=== PATIENT | male | born 1990 | race Caucasian/White ===

== ENCOUNTER 2016-05-06 21:54 | Emergency (ER) | payer SELFPAY ==
[2016-05-06 23:00] VITALS: BP 139/82
[2016-05-07] MEDS ORDERED: SUCRALFATE 1 GM TABLET PO ONE (00:13)
[2016-05-07] MEDS ORDERED: ONDANSETRON 4 MG TAB.RAPDIS PO ONE (00:13)
[2016-05-07] MEDS ORDERED: FAMOTIDINE 20 MG TABLET PO ONE (00:13)
--- NOTE | 2016-05-07 00:26 | ER Document Report ---
ED Medical Screen (RME) - General Stated Complaint: STOMACH PAIN Time seen by provider: 00:10 Notes: 26 year old male that comes to the ED for chief complaint of upper abdominal pain, worse since he had "the flu" a few days ago, post op from ruptured abdominal ulcer and drains from abscess formation afterwards. States pain has been present a few days, not particularly worse today, taking nexium. Normal BM yesterday, no fever, no N/V. States he couldn't make the drive to [place] to be seen so he came here TRAVEL OUTSIDE OF THE [place] IN LAST 30 DAYS: No - Related Data Allergies/Adverse Reactions: iodine [Iodine] Allergy (Severe, Verified 05/07/16 00:08) oxycodone HCl [From Percocet] Allergy (Severe, Verified 05/07/16 00:08) fish derived [Fish derived] Allergy (Verified 05/07/16 00:08) Shellfish * [Shellfish] Allergy (Verified 05/07/16 00:08) ibuprofen [Ibuprofen] Adverse Reaction (Severe, Verified 05/07/16 00:08) bleeding Past Medical History - Social History Chew tobacco use (# tins/day): No Frequency of alcohol use: None Drug Abuse: None Family history: Hypertension, Malignancy - Past Medical History Cardiac Medical History: Reports: Hx Hypercholesterolemia, Hx Hypertension - Resolved after bariatric surgery Pulmonary Medical History: Reports: Hx Asthma, Hx COPD, Hx Pneumonia, Hx Sleep Apnea Renal/ Medical History: Denies: Hx Peritoneal Dialysis GI Medical History: Reports: Hx Gastroesophageal Reflux Disease, Hx Irritable Bowel Musculoskeltal Medical History: Reports Hx Musculoskeletal Trauma Skin Medical History: Reports Hx Cellulitis Psychiatric Medical History: Reports: Hx Anxiety, Hx Attention Deficit Hyperactivity Disorder, Hx Depression Traumatic Medical History: Reports: Hx Fractures - 5th finger Past Surgical History: Reports: Hx Abdominal Surgery - gastric bypass, Hx Bowel Surgery - hernia repair., Hx Gastric Bypass Surgery, Hx Herniorrhaphy - Immunizations Immunizations up to date: Yes Hx Diphtheria, Pertussis, Tetanus Vaccination: Yes Physical Exam - Vital signs Vitals: Temp Pulse Resp BP Pulse Ox 98.2 F 71 16 139/82 H 100 05/06/16 22:59 05/06/16 22:59 05/06/16 22:59 05/06/16 22:59 01/12/17 22:59 - Abdominal Tenderness: Tender - epigastric tender, not guarding Course - Vital Signs Vital signs: Temp Pulse Resp BP Pulse Ox 98.2 F 71 16 139/82 H 100 05/06/16 22:59 05/06/16 22:59 05/06/16 22:59 05/06/16 22:59 05/06/16 22:59
== END 2016-05-07 02:15 | disposition left against medical advice (07) ==
LOC: ER 21:54
DX: Z53.9 Procedure and treatment not carried out, unspecified reason (principal); R10.9 Unspecified abdominal pain; R10.10 Upper abdominal pain, unspecified
CPT/HCPCS: 99281; S0119

== ENCOUNTER 2016-07-14 13:52 | Emergency (ER) | payer SELFPAY ==
--- NOTE | 2016-07-14 14:12 | ER Document Report ---
ED Medical Screen (RME) - General Stated Complaint: NECK PAIN Notes: 26 yo male c/o c/o left neck pain after lifting weights yesterday, doing shoulder shrugs. also c/o burning abdominal pain x 2 weeks. hx/o perforated ulcer in February. No nausea, no vomiting. No fever TRAVEL OUTSIDE OF THE [place] IN LAST 30 DAYS: No - Related Data Allergies/Adverse Reactions: iodine [Iodine] Allergy (Severe, Verified 05/07/16 01:36) oxycodone HCl [From Percocet] Allergy (Severe, Verified 05/07/16 01:36) fish derived [Fish derived] Allergy (Verified 05/07/16 01:36) Shellfish * [Shellfish] Allergy (Verified 05/07/16 01:36) ibuprofen [Ibuprofen] Adverse Reaction (Severe, Verified 05/07/16 01:36) bleeding Past Medical History - Social History Family history: Hypertension, Malignancy - Past Medical History Cardiac Medical History: Reports: Hx Hypercholesterolemia, Hx Hypertension - Resolved after bariatric surgery Pulmonary Medical History: Reports: Hx Asthma, Hx COPD, Hx Pneumonia, Hx Sleep Apnea Renal/ Medical History: Denies: Hx Peritoneal Dialysis GI Medical History: Reports: Hx Gastroesophageal Reflux Disease, Hx Irritable Bowel Musculoskeltal Medical History: Reports Hx Musculoskeletal Trauma Skin Medical History: Reports Hx Cellulitis Psychiatric Medical History: Reports: Hx Anxiety, Hx Attention Deficit Hyperactivity Disorder, Hx Depression Traumatic Medical History: Reports: Hx Fractures - 5th finger Past Surgical History: Reports: Hx Abdominal Surgery - gastric bypass, Hx Bowel Surgery - hernia repair., Hx Gastric Bypass Surgery, Hx Herniorrhaphy - Immunizations Immunizations up to date: Yes Hx Diphtheria, Pertussis, Tetanus Vaccination: Yes Physical Exam - Vital signs Vitals: Temp Pulse Resp BP Pulse Ox 98.3 F 83 16 117/73 99 07/14/16 13:55 07/14/16 13:55 07/14/16 13:55 07/14/16 13:55 07/14/16 13:55 Course - Vital Signs Vital signs: Temp Pulse Resp BP Pulse Ox 98.3 F 83 16 117/73 99 07/14/16 13:55 07/14/16 13:55 07/14/16 13:55 07/14/16 13:55 07/14/16 13:55
[2016-07-14 14:32] LABS: ABSOLUTE EOSINOPHILS # (AUTO) 0.3 10^3/uL (0.0-0.6); ABSOLUTE LYMPHOCYTES (AUTO) 2.2 10^3/uL (0.5-4.7); ABSOLUTE MONOCYTES (AUTO) 0.6 10^3/uL (0.1-1.4); ABSOLUTE NEUT (AUTO) 4.2 10^3/uL (1.7-8.2); BASOPHILS % (AUTO) 0.5 % (0-2); EOSINOPHILS % (AUTO) 3.9 % (0-6); HEMOGLOBIN 15.1 g/dL (13.5-17.0); HGB HCT DIFFERENCE 0.3; MEAN CORPUSCULAR HEMOGLOBIN 30.3 pg (27.0-33.4); MEAN CORPUSCULAR HGB CONC 33.6 g/dL (32.0-36.0); MEAN CORPUSCULAR VOLUME 90 fl (80-97); MONOCYTES % (AUTO) 8.3 % (3-13); RED BLOOD COUNT 4.99 10^6/uL (4.35-5.55); RED CELL DISTRIBUTION WIDTH 14.8 % (11.5-14.0); SEGMENTED NEUTROPHILS % (AUTO) 57.3 % (42-78); WHITE BLOOD COUNT 7.4 10^3/uL (4.0-10.5)
[2016-07-14 14:54] LABS: ALANINE AMINOTRANSFERASE 35 U/L (21-72); ALBUMIN 4.5 g/dL (3.5-5.0); ALKALINE PHOSPHATASE 54 U/L (38-126); ANION GAP 13 (5-19); ASPARTATE AMINO TRANSFERASE 32 U/L (17-59); BILIRUBIN,DIRECT 0.2 mg/dL (0.0-0.4); BILIRUBIN,TOTAL 0.7 mg/dL (0.2-1.3); BLOOD UREA NITROGEN 17 mg/dL (7-20); CALCIUM 9.8 mg/dL (8.4-10.2); CARBON DIOXIDE 27 mmol/L (22-30); CHLORIDE 105 mmol/L (98-107); CREATININE RESULT 0.82 mg/dL (0.52-1.25); GLUCOSE 56 mg/dL (75-110); POTASSIUM 4.7 mmol/L (3.6-5.0); SODIUM 144.7 mmol/L (137-145); TOTAL PROTEIN 7.7 g/dL (6.3-8.2)
--- NOTE | 2016-07-14 17:40 | ER Document Report ---
HPI - HPI Patient complains to provider of: upper back and neck pain Onset: Yesterday Onset/Duration: Gradual Quality of pain: Achy Pain Level: 4 Context: 26 yo male c/o upper back/shoulder pain after working out in the gym with a seeing eye dog trainer yesterday. No radiculopathy. Associated Symptoms: None Exacerbated by: Movement Relieved by: Denies Similar symptoms previously: Yes Recently seen / treated by doctor: No - ROS ROS below otherwise negative: Yes Systems Reviewed and Negative: Yes All other systems reviewed and negative - REPRODUCTIVE Reproductive: DENIES: : - DERM Skin Color: Normal Past Medical History - General Information source: Patient - Social History Smoking Status: Former Smoker Chew tobacco use (# tins/day): No Frequency of alcohol use: Rare Lives with: Spouse/Significant other Family History: Arthritis, Hypertension, Malignancy, Other - Seizures Patient has suicidal ideation: No Patient has homicidal ideation: No - Past Medical History Cardiac Medical History: Reports: Hx Hypercholesterolemia, Hx Hypertension - Resolved after bariatric surgery Pulmonary Medical History: Reports: Hx Asthma, Hx COPD, Hx Pneumonia, Hx Sleep Apnea Renal/ Medical History: Denies: Hx Peritoneal Dialysis GI Medical History: Reports: Hx Gastroesophageal Reflux Disease, Hx Irritable Bowel Musculoskeltal Medical History: Reports Hx Musculoskeletal Trauma Skin Medical History: Reports Hx Cellulitis Psychiatric Medical History: Reports: Hx Anxiety, Hx Attention Deficit Hyperactivity Disorder, Hx Depression Traumatic Medical History: Reports: Hx Fractures - 5th finger Past Surgical History: Reports: Hx Abdominal Surgery - gastric bypass, Hx Bowel Surgery - hernia repair., Hx Gastric Bypass Surgery, Hx Herniorrhaphy - Immunizations Immunizations up to date: Yes Hx Diphtheria, Pertussis, Tetanus Vaccination: Yes Hx Pneumococcal Vaccination: 01/23/11 Vertical Provider Document - CONSTITUTIONAL Agree With Documented VS: Yes Exam Limitations: No Limitations General Appearance: No Apparent Distress - INFECTION CONTROL TRAVEL OUTSIDE OF THE [place] IN LAST 30 DAYS: No - HEENT HEENT: Atraumatic, Normocephalic - NECK Neck: Supple - tender saud trapezius muscles - RESPIRATORY Respiratory: Breath Sounds Normal, No Respiratory Distress O2 Sat by Pulse Oximetry: 99 - CARDIOVASCULAR Cardiovascular: Regular Rate, Regular Rhythm - GI/ABDOMEN Gastrointestinal: Abdomen Soft, Abdomen Non-Tender, No Organomegaly - MUSCULOSKELETAL/EXTREMETIES Musculoskeletal/Extremeties: MAEW, FROM, Tender - see above - NEURO Level of Consciousness: Awake, Alert - DERM Integumentary: Warm, Dry Course - Vital Signs Vital signs: Temp Pulse Resp BP Pulse Ox 98.3 F 83 16 117/73 99 07/14/16 13:55 07/14/16 13:55 07/14/16 13:55 07/14/16 13:55 07/14/16 13:55 - Laboratory Result Diagrams: 07/14/16 14:15 07/14/16 14:15 Laboratory results interpreted by me: 07/14/16 07/14/16 14:15 14:15 RDW 14.8 H Glucose 56 L Discharge - Discharge Clinical Impression: Strain of cervical portion of both trapezius muscles Condition: Good Disposition: HOME, SELF-CARE Instructions: Muscle Strain ([facility]), Muscle Relaxers ([facility]), Acetaminophen, Warm Packs ([facility]), Ultram ([facility]) Additional Instructions: warm compress gentle range of motion to er if worse Please complete the patient satisfaction survey if you get one, and return it.. If you do not receive a survey, then you can go to the [facility] website, [email or web address] and place your comments about your very good care. Thank you very much. It was a pleasure being your medical provider today. Prescriptions: Cyclobenzaprine HCl [Flexeril 10 Mg Tablet] 10 mg PO TIDP PRN #15 tablet PRN Reason: Tramadol HCl [Ultram 50 mg Tablet] 50 mg PO ASDIR PRN #15 tablet PRN Reason:
[2016-07-14] MEDS ORDERED: TRAMADOL HCL 50 MG TABLET PO ONE (19:19)
[2016-07-14] MEDS ORDERED: ACETAMINOPHEN 325 MG TABLET PO ONE (19:19)
[2016-07-14 20:40] VITALS: BP 122/76
== END 2016-07-14 20:30 | disposition home or self-care (01) ==
LOC: ER 13:52
DX: S29.012A Strain of muscle and tendon of back wall of thorax, initial encounter (principal); X58.XXXA Exposure to other specified factors, initial encounter; Y93.B9 Activity, other involving muscle strengthening exercises; Y92.39 Other specified sports and athletic area as the place of occurrence of the external cause; J44.9 Chronic obstructive pulmonary disease, unspecified; Z87.891 Personal history of nicotine dependence; Z98.84 Bariatric surgery status
CPT/HCPCS: 36415; 80053; 85025; 99283

== ENCOUNTER 2016-07-20 10:36 | Emergency (ER) | payer SELFPAY ==
[2016-07-20] MEDS ORDERED: ONDANSETRON 4 MG TAB.RAPDIS PO ONE (10:58)
--- NOTE | 2016-07-20 10:58 | ER Document Report ---
ED Medical Screen (RME) - General Stated Complaint: ABDOMINAL PAIN Notes: Patient complains of abdominal pain for 3 days. Patient has nausea, but no vomiting or diarrhea. Denies fever. Patient states he had surgery for a perforated ulcer in February. But he also admits to having problems with his gallbladder. I have greeted and performed a rapid initial assessment of this patient. A comprehensive ED assessment and evaluation of the patient, analysis of test results and completion of the medical decision making process will be conducted by additional ED providers. TRAVEL OUTSIDE OF THE [place] IN LAST 30 DAYS: No - Related Data Allergies/Adverse Reactions: iodine [Iodine] Allergy (Severe, Verified 07/20/16 10:55) oxycodone HCl [From Percocet] Allergy (Severe, Verified 07/20/16 10:55) fish derived [Fish derived] Allergy (Verified 07/20/16 10:55) Shellfish * [Shellfish] Allergy (Verified 07/20/16 10:55) ibuprofen [Ibuprofen] Adverse Reaction (Severe, Verified 07/20/16 10:55) bleeding Past Medical History - Social History Family history: Hypertension, Malignancy - Past Medical History Cardiac Medical History: Reports: Hx Hypercholesterolemia, Hx Hypertension - Resolved after bariatric surgery Pulmonary Medical History: Reports: Hx Asthma, Hx COPD, Hx Pneumonia, Hx Sleep Apnea Renal/ Medical History: Denies: Hx Peritoneal Dialysis GI Medical History: Reports: Hx Gastroesophageal Reflux Disease, Hx Irritable Bowel Musculoskeltal Medical History: Reports Hx Musculoskeletal Trauma Skin Medical History: Reports Hx Cellulitis Psychiatric Medical History: Reports: Hx Anxiety, Hx Attention Deficit Hyperactivity Disorder, Hx Depression Traumatic Medical History: Reports: Hx Fractures - 5th finger Past Surgical History: Reports: Hx Abdominal Surgery - gastric bypass, Hx Bowel Surgery - hernia repair., Hx Gastric Bypass Surgery, Hx Herniorrhaphy - Immunizations Immunizations up to date: Yes Hx Diphtheria, Pertussis, Tetanus Vaccination: Yes Physical Exam - Vital signs Vitals: Temp Pulse Resp BP Pulse Ox 98.5 F 68 18 127/67 H 100 07/20/16 10:51 07/20/16 10:51 07/20/16 10:51 07/20/16 10:51 07/20/16 10:51 - Abdominal Notes: Abdomen tender to palpation, but pain is more to the upper abdomen. Course - Vital Signs Vital signs: Temp Pulse Resp BP Pulse Ox 98.5 F 68 18 127/67 H 100 07/20/16 10:51 07/20/16 10:51 07/20/16 10:51 07/20/16 10:51 07/20/16 10:51
[2016-07-20 12:00] LABS: ABSOLUTE EOSINOPHILS # (AUTO) 0.3 10^3/uL (0.0-0.6); ABSOLUTE LYMPHOCYTES (AUTO) 2.2 10^3/uL (0.5-4.7); ABSOLUTE MONOCYTES (AUTO) 0.6 10^3/uL (0.1-1.4); ABSOLUTE NEUT (AUTO) 3.2 10^3/uL (1.7-8.2); BASOPHILS % (AUTO) 0.5 % (0-2); HEMATOCRIT 41.6 % (37.9-51.0); HGB HCT DIFFERENCE 0.4; LYMPHOCYTES % (AUTO) 34.8 % (13-45); MEAN CORPUSCULAR HEMOGLOBIN 30.2 pg (27.0-33.4); MEAN CORPUSCULAR HGB CONC 33.7 g/dL (32.0-36.0); MEAN CORPUSCULAR VOLUME 90 fl (80-97); MONOCYTES % (AUTO) 9.7 % (3-13); RED BLOOD COUNT 4.63 10^6/uL (4.35-5.55); RED CELL DISTRIBUTION WIDTH 14.8 % (11.5-14.0); WHITE BLOOD COUNT 6.4 10^3/uL (4.0-10.5)
[2016-07-20 12:09] LABS: APPEARANCE,URINE SLIGHTLY-CLOUDY; BILIRUBIN,URINE NEGATIVE (NEGATIVE); GLUCOSE, URINE NEGATIVE (NEGATIVE); KETONES,URINE NEGATIVE (NEGATIVE); LEUKOCYTE ESTERASE,URINE NEGATIVE (NEGATIVE); NITRITE,URINE NEGATIVE (NEGATIVE); PROTEIN,URINE NEGATIVE (NEGATIVE); URINE SPECIFIC GRAVITY 1.031; UROBILINOGEN,URINE NEGATIVE mg/dL (<2.0)
[2016-07-20 12:21] LABS: ALANINE AMINOTRANSFERASE 33 U/L (21-72); ALBUMIN 4.1 g/dL (3.5-5.0); ALKALINE PHOSPHATASE 61 U/L (38-126); ANION GAP 12 (5-19); ASPARTATE AMINO TRANSFERASE 31 U/L (17-59); BILIRUBIN,DIRECT 0.2 mg/dL (0.0-0.4); BILIRUBIN,TOTAL 0.4 mg/dL (0.2-1.3); BLOOD UREA NITROGEN 11 mg/dL (7-20); CALCIUM 9.2 mg/dL (8.4-10.2); CARBON DIOXIDE 28 mmol/L (22-30); CHLORIDE 103 mmol/L (98-107); CREATININE RESULT 0.67 mg/dL (0.52-1.25); LIPASE 64.4 U/L (23-300); POTASSIUM 3.9 mmol/L (3.6-5.0); SODIUM 142.9 mmol/L (137-145); TOTAL PROTEIN 7.1 g/dL (6.3-8.2)
[2016-07-20 12:39] LABS: GLUCOSE 28 mg/dL (75-110)
[2016-07-20] MEDS ORDERED: DEXTROSE 5%-LACTATED RINGERS 1,000 ML IV ONE (16:31)
--- NOTE | 2016-07-20 16:31 | ER Document Report ---
ED GI/ - General Mode of Arrival: Ambulatory Information source: Patient TRAVEL OUTSIDE OF THE [place] IN LAST 30 DAYS: No - HPI Patient complains to provider of: Abdominal pain Onset: Other - x3 days Timing/Duration: Persistent Location: Other - diffuse, radiating to back Similar symptoms previously: Yes Recently seen / treated by doctor: Yes <DEMOND GORDILLO - Last Filed: 07/20/16 17:33> <DHAVAL FORD - Last Filed: 07/20/16 21:12> - General Chief Complaint: Abdominal Pain Stated Complaint: ABDOMINAL PAIN Notes: Patient is a 26 year old male that presents to the emergency department today with complaints of 3 days of abdominal pain. Patient has a very extensive past medical history including gastric bypass, gastric abscess from surgical complications, and gastric ulcer repair. Patient states he feels like the abdominal pain radiates to his back. Patient denies any vomiting. (DEMOND GORDILLO) - Related Data Allergies/Adverse Reactions: iodine [Iodine] Allergy (Severe, Verified 07/20/16 10:55) oxycodone HCl [From Percocet] Allergy (Severe, Verified 07/20/16 10:55) fish derived [Fish derived] Allergy (Verified 07/20/16 10:55) Shellfish * [Shellfish] Allergy (Verified 07/20/16 10:55) ibuprofen [Ibuprofen] Adverse Reaction (Severe, Verified 07/20/16 10:55) bleeding Past Medical History - General Information source: Patient, [facility] Records - Social History Smoking Status: Current Some Day Smoker Cigarette use (# per day): Yes Chew tobacco use (# tins/day): No Frequency of alcohol use: Occasional Drug Abuse: None Lives with: Family Family History: Arthritis, Hypertension, Malignancy, Other - Seizures Patient has suicidal ideation: No Patient has homicidal ideation: No - Past Medical History Cardiac Medical History: Reports: Hx Hypercholesterolemia, Hx Hypertension - Resolved after bariatric surgery Pulmonary Medical History: Reports: Hx Asthma, Hx COPD, Hx Pneumonia, Hx Sleep Apnea GI Medical History: Reports: Hx Gastroesophageal Reflux Disease, Hx Irritable Bowel, Hx Ulcer Musculoskeltal Medical History: Reports Hx Musculoskeletal Trauma Skin Medical History: Reports Hx Cellulitis Psychiatric Medical History: Reports: Hx Anxiety, Hx Attention Deficit Hyperactivity Disorder, Hx Depression Traumatic Medical History: Reports: Hx Fractures - 5th finger Past Surgical History: Reports: Hx Abdominal Surgery - gastric bypass, Hx Bowel Surgery - hernia repair., Hx Gastric Bypass Surgery, Hx Herniorrhaphy - Immunizations Immunizations up to date: Yes Hx Diphtheria, Pertussis, Tetanus Vaccination: Yes Hx Pneumococcal Vaccination: 01/23/11 <DEMOND GORDILLO - Last Filed: 07/20/16 17:33> Review of Systems - Review of Systems Constitutional: denies: Fever EENT: No symptoms reported Cardiovascular: No symptoms reported Respiratory: No symptoms reported Gastrointestinal: See HPI, Abdominal pain - radiating to the back. denies: Vomiting Genitourinary: No symptoms reported Male Genitourinary: No symptoms reported Musculoskeletal: No symptoms reported Skin: No symptoms reported Hematologic/Lymphatic: No symptoms reported Neurological/Psychological: No symptoms reported -: Yes All other systems reviewed and negative <DEMOND GORDILLO - Last Filed: 07/20/16 17:33> Physical Exam <DEMOND GORDILLO - Last Filed: 07/20/16 17:33> <DHAVAL FORD - Last Filed: 07/20/16 21:12> - Vital signs Vitals: Temp Pulse Resp BP Pulse Ox 98.5 F 68 18 127/67 H 100 07/20/16 10:51 07/20/16 10:51 07/20/16 10:51 07/20/16 10:51 07/20/16 10:51 - Notes Notes: Physical Exam: General: Alert, appears well. HEENT: Normocephalic. Atraumatic. PERRL. Extraocular movements intact. Oropharynx clear. Neck: Supple. Non-tender. Respiratory: No respiratory distress. Clear and equal breath sounds bilaterally. Cardiovascular: Regular rate and rhythm. Abdominal: Large amounts of loose skin across abdomen consistent with significant weight loss following gastric bypass surgery. Moderate diffuse abdominal tenderness with palpation. No distension. Normal Bowel Sounds. Back: No CVA tenderness with percussion. No deformity or step off. Extremities: Moves all four extremities. Upper extremities: Normal inspection. Normal ROM. No edema. Lower extremities: Normal inspection. No edema. Normal ROM. Neurological: Normal cognition. AAOx4. Normal speech. Psychological: Normal affect. Normal Mood. Skin: Large amounts of loose skin across abdomen consistent with significant weight loss following gastric bypass surgery. Warm, dry, normal color. (DEMOND GORDILLO) Course - Laboratory Result Diagrams: 07/20/16 11:20 07/20/16 11:20 <DEMOND GORDILLO - Last Filed: 07/20/16 17:33> - Laboratory Result Diagrams: 07/20/16 11:20 07/20/16 11:20 - Diagnostic Test Radiology reviewed: Image reviewed, Reports reviewed - CT scan of the abdomen and pelvis with oral and IV contrast was unremarkable. <DHAVAL FORD - Last Filed: 07/20/16 21:12> - Re-evaluation Re-evalutation: 07/20/16 21:09 The patient's abdomen and pelvis CT scan with IV and oral contrast is unremarkable. The white blood cell count is low normal without shift. The patient did seem somewhat disappointed when he was told of the completely normal results. He will be advised to follow-up with a local medical doctor or his doctors in [place] if his pain persists. (DHAVAL FORD) - Vital Signs Vital signs: Temp Pulse Resp BP Pulse Ox 97.5 F 58 L 20 116/65 100 07/20/16 18:25 07/20/16 18:25 07/20/16 18:25 07/20/16 18:25 07/20/16 18:25 - Laboratory Laboratory results interpreted by me: 07/20/16 07/20/16 07/20/16 11:20 11:20 11:20 RDW 14.8 H Glucose 28 L* POC Glucose Urine Ascorbic Acid 40 H 07/20/16 07/20/16 16:19 19:11 RDW Glucose POC Glucose 68 L 64 L Urine Ascorbic Acid Discharge <DEMOND GORDILLO - Last Filed: 07/20/16 17:33> <DHAVAL FORD - Last Filed: 07/20/16 21:12> - Discharge Clinical Impression: Abdominal pain Qualifiers: Abdominal location: generalized Qualified Code(s): R10.84 - Generalized abdominal pain Condition: Stable Disposition: HOME, SELF-CARE Additional Instructions: Abdominal Pain: There are many causes of abdominal pain. Pain can mean a serious problem requiring surgery (such as appendicitis). It can also be an innocent problem that goes away on its own (such as a viral infection). Often, time must pass to determine the cause of pain. The physician does not feel that hospitalization is necessary, at present. Things may change within the next 24 hours. Call the doctor or come back for re- examination if any problems occur, such as: (1) Pain that becomes more severe, steady, or becomes concentrated in one specific area. Also, pain that is more severe with movement or coughing. (2) Vomiting that persists or becomes more frequent. (3) Blood in the vomitus, urine, or bowel movements. Blood in the stool may have a tarry or black appearance. (4) Shaking chills or fever greater than 100 degrees F. (5) The abdomen becomes more distended or swollen. (6) Bowel movements cease. (7) Failure to improve as expected. //////////////////////////////////////////////////////////////////////////////// //////////////////////////////////////////////////////////////////////////////// /////////////// Your CT scan of abdomen and pelvis was normal according to the radiologist. There is no explanation for your abdominal discomfort seen on reviewing the scan. Your blood work does not suggest any infectious process at this time. Take the pain medication as dispensed for tonight. Follow-up with a local medical doctor or with your doctors in [place] if your pain continues. RETURN TO THE EMERGENCY ROOM IF ANY NEW OR WORSENING SYMPTOMS. Scribe Attestation: 07/20/16 21:12 I personally performed the services described in the documentation, reviewed and edited the documentation which was dictated to the scribe in my presence, and it accurately records my words and actions. (DHAVAL FORD) Scribe Documentation - Scribe Written by Yessy:: Yessy Brand, 07/20/2016 1733 acting as scribe for :: Alec <DEMOND GORDILLO - Last Filed: 07/20/16 17:33>
[2016-07-20] MEDS ORDERED: MORPHINE SULFATE 10 MG/ML INJ IV ONE ×2 (16:32→18:12)
[2016-07-20] MEDS ORDERED: ONDANSETRON HCL INJ/PF 4 MG/2 ML SDV IV ONE (16:32)
[2016-07-20] MEDS ORDERED: DIPHENHYDRAMINE HCL 50 MG/ML VIAL IV ONE ×2 (16:35→19:09)
[2016-07-20] MEDS ORDERED: FAMOTIDINE INJ/PF 20 MG/2 ML SDV IV ONE (16:35)
[2016-07-20] MEDS ORDERED: HYDROCODONE/ACETAMINOPHEN 5-325 MG 6 TAB/DSPK PO PRN (21:13)
[2016-07-20 21:40] VITALS: BP 126/70
== END 2016-07-20 21:40 | disposition home or self-care (01) ==
LOC: ER 10:36
DX: R10.84 Generalized abdominal pain (principal); Z98.84 Bariatric surgery status; F17.210 Nicotine dependence, cigarettes, uncomplicated
CPT/HCPCS: 96376; 99284; 96375; 96365; 36415; 82962; 83690; 85025; 80053; 81001; 74177; J1200; S0119; J2270; J2405; S0028

== ENCOUNTER 2016-09-21 11:58 | Emergency (ER) | payer OTHER ==
--- NOTE | 2016-09-21 13:18 | ER Document Report ---
ED Medical Screen (RME) - General Chief Complaint: Low Blood Sugar Stated Complaint: DIZZY/NAUSEA Time Seen by Provider: 09/21/16 13:09 Mode of Arrival: Ambulatory Information source: Patient Notes: Patient reports having an episode of feeling sweaty and nauseous and suspecting that his blood sugar was low. Patient states that occasionally he suspects that he has low blood sugar due to his gastric bypass surgery. Patient did drink orange juice prior to arrival. Blood sugar has normalized based on triage Accu-Chek. Patient does complain of chronic epigastric burning that he attributes to his surgical incision site. Patient also reports occasional palpitations. hx:asthma, Gastric bypass, perforated ulcer TRAVEL OUTSIDE OF THE [place] IN LAST 30 DAYS: No - Related Data Allergies/Adverse Reactions: iodine [Iodine] Allergy (Severe, Verified 07/20/16 10:55) oxycodone HCl [From Percocet] Allergy (Severe, Verified 07/20/16 10:55) fish derived [Fish derived] Allergy (Verified 07/20/16 10:55) Shellfish * [Shellfish] Allergy (Verified 07/20/16 10:55) ibuprofen [Ibuprofen] Adverse Reaction (Severe, Verified 07/20/16 10:55) bleeding Past Medical History - Social History Family history: Hypertension, Malignancy - Past Medical History Cardiac Medical History: Reports: Hx Hypercholesterolemia, Hx Hypertension - Resolved after bariatric surgery Pulmonary Medical History: Reports: Hx Asthma, Hx COPD, Hx Pneumonia, Hx Sleep Apnea Renal/ Medical History: Denies: Hx Peritoneal Dialysis GI Medical History: Reports: Hx Gastroesophageal Reflux Disease, Hx Irritable Bowel, Hx Ulcer Musculoskeltal Medical History: Reports Hx Musculoskeletal Trauma Skin Medical History: Reports Hx Cellulitis Psychiatric Medical History: Reports: Hx Anxiety, Hx Attention Deficit Hyperactivity Disorder, Hx Depression Traumatic Medical History: Reports: Hx Fractures - 5th finger Past Surgical History: Reports: Hx Abdominal Surgery - gastric bypass, Hx Bowel Surgery - hernia repair., Hx Gastric Bypass Surgery, Hx Herniorrhaphy - Immunizations Immunizations up to date: Yes Hx Diphtheria, Pertussis, Tetanus Vaccination: Yes Physical Exam - Vital signs Vitals: Temp Pulse Resp BP Pulse Ox 62 F L 62 18 133/66 H 100 09/21/16 12:08 09/21/16 12:08 09/21/16 12:08 09/21/16 12:08 09/21/16 12:08 - Abdominal Tenderness: Tender - epigastric Course - Vital Signs Vital signs: Temp Pulse Resp BP Pulse Ox 62 F L 62 18 133/66 H 100 09/21/16 12:08 09/21/16 12:08 09/21/16 12:08 09/21/16 12:08 09/21/16 12:08
[2016-09-21] MEDS ORDERED: MAG HYDROX/AL HYDROX/SIMETH SUSP 30 ML UDCUP PO ONE (13:19)
[2016-09-21] MEDS ORDERED: LIDOCAINE 2% VISCOUS SOLN 20 ML UDCUP PO ONE (13:19)
[2016-09-21] MEDS ORDERED: ONDANSETRON HCL INJ/PF 4 MG/2 ML SDV IV ONE (13:19)
--- NOTE | 2016-09-21 13:21 | ER Document Report ---
ED General - General Chief Complaint: Low Blood Sugar Stated Complaint: DIZZY/NAUSEA Time Seen by Provider: 09/21/16 13:09 Mode of Arrival: Ambulatory Information source: Patient Notes: Patient states that he felt sweaty today had a headache, nausea and thought his blood sugar was dropping. Patient states that since his gastric bypass surgery he has had occasional episodes of hypoglycemia. Patient states he did drink orange juice prior to arrival and in triage his Accu-Chek demonstrated that his blood sugar had come up. Patient does complain of abdominal pain, but states he has had this off and on since having gastric bypass surgery. Patient reports epigastric pain that started this afternoon. TRAVEL OUTSIDE OF THE [place] IN LAST 30 DAYS: No - HPI Onset: This afternoon Onset/Duration: Gradual Quality of pain: Burning, Sharp Pain Level: 4 Associated symptoms: Nausea. denies: Chest pain, Nonproductive cough, Productive cough, Diarrhea, Fever, Vomiting Exacerbated by: Denies Relieved by: Denies Similar symptoms previously: Yes Recently seen / treated by doctor: No - Related Data Allergies/Adverse Reactions: iodine [Iodine] Allergy (Severe, Verified 07/20/16 10:55) oxycodone HCl [From Percocet] Allergy (Severe, Verified 07/20/16 10:55) fish derived [Fish derived] Allergy (Verified 07/20/16 10:55) Shellfish * [Shellfish] Allergy (Verified 07/20/16 10:55) ibuprofen [Ibuprofen] Adverse Reaction (Severe, Verified 07/20/16 10:55) bleeding Past Medical History - General Information source: Patient - Social History Smoking Status: Current Every Day Smoker Frequency of alcohol use: Occasional Drug Abuse: None Occupation: [employer] Lives with: Family Family History: Arthritis, Hypertension, Malignancy, Other - Seizures Patient has suicidal ideation: No Patient has homicidal ideation: No - Past Medical History Cardiac Medical History: Reports: Hx Hypercholesterolemia, Hx Hypertension - Resolved after bariatric surgery Pulmonary Medical History: Reports: Hx Asthma, Hx COPD, Hx Pneumonia, Hx Sleep Apnea Renal/ Medical History: Denies: Hx Peritoneal Dialysis GI Medical History: Reports: Hx Gastroesophageal Reflux Disease, Hx Irritable Bowel, Hx Ulcer Musculoskeltal Medical History: Reports Hx Musculoskeletal Trauma Skin Medical History: Reports Hx Cellulitis Psychiatric Medical History: Reports: Hx Anxiety, Hx Attention Deficit Hyperactivity Disorder, Hx Depression Traumatic Medical History: Reports: Hx Fractures - 5th finger Past Surgical History: Reports: Hx Abdominal Surgery - gastric bypass, Hx Bowel Surgery - hernia repair., Hx Gastric Bypass Surgery, Hx Herniorrhaphy - Immunizations Immunizations up to date: Yes Hx Diphtheria, Pertussis, Tetanus Vaccination: Yes Hx Pneumococcal Vaccination: 01/23/11 Review of Systems - Review of Systems Constitutional: No symptoms reported. denies: Fever, Recent illness EENT: No symptoms reported Cardiovascular: Palpitations Respiratory: No symptoms reported. denies: Cough, Short of breath Gastrointestinal: Abdominal pain, Nausea. denies: Diarrhea, Vomiting Genitourinary: No symptoms reported. denies: Dysuria Male Genitourinary: No symptoms reported Musculoskeletal: No symptoms reported Skin: No symptoms reported Hematologic/Lymphatic: No symptoms reported Neurological/Psychological: No symptoms reported Physical Exam - Vital signs Vitals: Temp Pulse Resp BP Pulse Ox 62 F L 62 18 133/66 H 100 09/21/16 12:08 09/21/16 12:08 09/21/16 12:08 09/21/16 12:08 09/21/16 12:08 - General General appearance: Appears well, Alert In distress: None - HEENT Head: Normocephalic, Atraumatic Eyes: Normal Nasal: Normal Mouth/Lips: Normal Pharynx: Normal Neck: Normal, Supple. No: Lymphadenopathy - Respiratory Respiratory status: No respiratory distress Chest status: Nontender Breath sounds: Normal. No: Rales, Rhonchi, Stridor, Wheezing Chest palpation: Normal. No: Flail segment - Cardiovascular Rhythm: Regular Heart sounds: S1 appreciated, S2 appreciated Murmur: No - Abdominal Inspection: Normal, Other - loose abd skin, umbilical scar Distension: No distension Bowel sounds: Normal Tenderness: Tender - epigastric Organomegaly: No organomegaly - Back Back: Normal, Nontender. No: CVA tenderness - Extremities General upper extremity: Normal inspection, Normal ROM General lower extremity: Normal ROM - Neurological Neuro grossly intact: Yes Cognition: Normal Orientation: AAOx4 N[place] Coma Scale Eye Opening: Spontaneous [place] Coma Scale Verbal: Oriented [place] Coma Scale Motor: Obeys Commands [place] Coma Scale Total: 15 - Psychological Associated symptoms: Normal affect, Normal mood - Skin Skin Temperature: Warm Skin Moisture: Dry Skin Color: Normal Course - Re-evaluation Re-evalutation: 09/21/16 16:05 pt continues with epig/umbilical abd pain, consulted with dr Martino who advises ct imaging. 09/21/16 17:20 pt states he has done well with iv contrasted ct scans, he just gets premedicated with benadryl. Consulted with dr Martino who agrees with plan for ct scan with iv only contrast, agrees with plan to premedicated pt prior to study. - Vital Signs Vital signs: Temp Pulse Resp BP Pulse Ox 98.0 F 62 18 133/66 H 100 09/21/16 12:13 09/21/16 12:13 09/21/16 12:13 09/21/16 12:13 09/21/16 12:13 - Laboratory Result Diagrams: 09/21/16 13:52 09/21/16 13:52 Laboratory results interpreted by me: 09/21/16 09/21/16 09/21/16 12:12 13:52 13:52 RDW 15.1 H Glucose 73 L POC Glucose 129 H Urine Urobilinogen Urine Ascorbic Acid 09/21/16 09/21/16 15:20 18:44 RDW Glucose POC Glucose 118 H Urine Urobilinogen 2.0 H Urine Ascorbic Acid 40 H Labs- Entire Visit 09/21/16 09/21/16 09/21/16 12:12 13:52 13:52 WBC 6.5 RBC 4.62 Hgb 13.8 Hct 42.4 MCV 92 MCH 29.9 MCHC 32.6 RDW 15.1 H Plt Count 214 Seg Neutrophils % 65.5 Lymphocytes % 25.3 Monocytes % 7.5 Eosinophils % 1.3 Basophils % 0.4 Absolute Neutrophils 4.2 Absolute Lymphocytes 1.6 Absolute Monocytes 0.5 Absolute Eosinophils 0.1 Absolute Basophils 0.0 Sodium 142.4 Potassium 4.4 Chloride 104 Carbon Dioxide 28 Anion Gap 10 BUN 12 Creatinine 0.70 Est GFR ( Amer) > 60 Est GFR (Non-Af Amer) > 60 Glucose 73 L POC Glucose 129 H Calcium 9.3 Magnesium 2.3 Total Bilirubin 1.1 Direct Bilirubin 0.3 Indirect Bilirubin Not Reportable Neonat Total Bilirubin Not Reportable AST 31 ALT 29 Alkaline Phosphatase 41 Total Protein 7.3 Albumin 4.2 Lipase 47.3 TSH Urine Color Urine Appearance Urine pH Ur Specific [place] Urine Protein Urine Glucose (UA) Urine Ketones Urine Blood Urine Nitrite Urine Bilirubin Urine Urobilinogen Ur Leukocyte Esterase Urine WBC (Auto) Urine RBC (Auto) Urine Mucus (Auto) Urine Ascorbic Acid Urine Opiates Screen Urine Methadone Screen Ur Barbiturates Screen Ur Phencyclidine Scrn Ur Amphetamines Screen U Benzodiazepines Scrn Urine Cocaine Screen U Marijuana (THC) Screen 09/21/16 09/21/16 09/21/16 13:52 15:20 15:20 WBC RBC Hgb Hct MCV MCH MCHC RDW Plt Count Seg Neutrophils % Lymphocytes % Monocytes % Eosinophils % Basophils % Absolute Neutrophils Absolute Lymphocytes Absolute Monocytes Absolute Eosinophils Absolute Basophils Sodium Potassium Chloride Carbon Dioxide Anion Gap BUN Creatinine Est GFR ( Amer) Est GFR (Non-Af Amer) Glucose POC Glucose Calcium Magnesium Total Bilirubin Direct Bilirubin Indirect Bilirubin Neonat Total Bilirubin AST ALT Alkaline Phosphatase Total Protein Albumin Lipase TSH 0.73 Urine Color YELLOW Urine Appearance SLIGHTLY-CLOUDY Urine pH 6.0 Ur Specific [place] 1.028 Urine Protein NEGATIVE Urine Glucose (UA) NEGATIVE Urine Ketones NEGATIVE Urine Blood NEGATIVE Urine Nitrite NEGATIVE Urine Bilirubin NEGATIVE Urine Urobilinogen 2.0 H Ur Leukocyte Esterase NEGATIVE Urine WBC (Auto) 1 Urine RBC (Auto) 3 Urine Mucus (Auto) OCC Urine Ascorbic Acid 40 H Urine Opiates Screen NEGATIVE Urine Methadone Screen NEGATIVE Ur Barbiturates Screen NEGATIVE Ur Phencyclidine Scrn NEGATIVE Ur Amphetamines Screen NEGATIVE U Benzodiazepines Scrn NEGATIVE Urine Cocaine Screen NEGATIVE U Marijuana (THC) Screen NEGATIVE 09/21/16 18:44 WBC RBC Hgb Hct MCV MCH MCHC RDW Plt Count Seg Neutrophils % Lymphocytes % Monocytes % Eosinophils % Basophils % Absolute Neutrophils Absolute Lymphocytes Absolute Monocytes Absolute Eosinophils Absolute Basophils Sodium Potassium Chloride Carbon Dioxide Anion Gap BUN Creatinine Est GFR ( Amer) Est GFR (Non-Af Amer) Glucose POC Glucose 118 H Calcium Magnesium Total Bilirubin Direct Bilirubin Indirect Bilirubin Neonat Total Bilirubin AST ALT Alkaline Phosphatase Total Protein Albumin Lipase TSH Urine Color Urine Appearance Urine pH Ur Specific [place] Urine Protein Urine Glucose (UA) Urine Ketones Urine Blood Urine Nitrite Urine Bilirubin Urine Urobilinogen Ur Leukocyte Esterase Urine WBC (Auto) Urine RBC (Auto) Urine Mucus (Auto) Urine Ascorbic Acid Urine Opiates Screen Urine Methadone Screen Ur Barbiturates Screen Ur Phencyclidine Scrn Ur Amphetamines Screen U Benzodiazepines Scrn Urine Cocaine Screen U Marijuana (THC) Screen 09/21/16 19:29 - Diagnostic Test Radiology reviewed: Reports reviewed Discharge - Discharge Clinical Impression: Hypoglycemia Abdominal pain Qualifiers: Abdominal location: epigastric Qualified Code(s): R10.13 - Epigastric pain Condition: Stable Disposition: HOME, SELF-CARE Instructions: Abdominal Pain ([facility]), Antinausea Medication ([facility]), Hypoglycemia ( [facility]) Additional Instructions: return immediately for any new or worsening symptoms follow up with your primary care provider for a recheck eat regularly spaced meals with snacks to prevent drops in your blood sugar Prescriptions: Omeprazole Magnesium [Prilosec Otc] 20 mg PO DAILY #15 tablet. Ondansetron HCl [Zofran 4 mg Tablet] 1 - 2 tab PO Q6 PRN #12 tablet PRN Reason: Sucralfate [Carafate 1 gm Tablet] 1 gm PO ACHS #40 tablet Forms: Return to Work Referrals: VINCENT ESTEBAN DO [Primary Care Provider] - Follow up tomorrow
[2016-09-21 14:06] LABS: ABSOLUTE EOSINOPHILS # (AUTO) 0.1 10^3/uL (0.0-0.6); ABSOLUTE LYMPHOCYTES (AUTO) 1.6 10^3/uL (0.5-4.7); ABSOLUTE MONOCYTES (AUTO) 0.5 10^3/uL (0.1-1.4); ABSOLUTE NEUT (AUTO) 4.2 10^3/uL (1.7-8.2); BASOPHILS % (AUTO) 0.4 % (0-2); EOSINOPHILS % (AUTO) 1.3 % (0-6); HEMATOCRIT 42.4 % (37.9-51.0); HEMOGLOBIN 13.8 g/dL (13.5-17.0); LYMPHOCYTES % (AUTO) 25.3 % (13-45); MEAN CORPUSCULAR HEMOGLOBIN 29.9 pg (27.0-33.4); MEAN CORPUSCULAR HGB CONC 32.6 g/dL (32.0-36.0); MEAN CORPUSCULAR VOLUME 92 fl (80-97); MONOCYTES % (AUTO) 7.5 % (3-13); RED BLOOD COUNT 4.62 10^6/uL (4.35-5.55); RED CELL DISTRIBUTION WIDTH 15.1 % (11.5-14.0); SEGMENTED NEUTROPHILS % (AUTO) 65.5 % (42-78); WHITE BLOOD COUNT 6.5 10^3/uL (4.0-10.5)
[2016-09-21 14:50] LABS: ALANINE AMINOTRANSFERASE 29 U/L (21-72); ALBUMIN 4.2 g/dL (3.5-5.0); ALKALINE PHOSPHATASE 41 U/L (38-126); ANION GAP 10 (5-19); ASPARTATE AMINO TRANSFERASE 31 U/L (17-59); BILIRUBIN,DIRECT 0.3 mg/dL (0.0-0.4); BILIRUBIN,TOTAL 1.1 mg/dL (0.2-1.3); BLOOD UREA NITROGEN 12 mg/dL (7-20); CALCIUM 9.3 mg/dL (8.4-10.2); CARBON DIOXIDE 28 mmol/L (22-30); CHLORIDE 104 mmol/L (98-107); GLUCOSE 73 mg/dL (75-110); LIPASE 47.3 U/L (23-300); MAGNESIUM 2.3 mg/dL (1.6-2.3); POTASSIUM 4.4 mmol/L (3.6-5.0); SODIUM 142.4 mmol/L (137-145); TOTAL PROTEIN 7.3 g/dL (6.3-8.2)
--- NOTE | 2016-09-21 15:21 | RADIOLOGY REPORT (SQ) ---
EXAM DESCRIPTION: ACUTE ABDOMEN SERIES COMPLETED DATE/TIME: 09/21/2016 2:39 pm REASON FOR STUDY: epig pain, hx gastric bypass COMPARISON: None. NUMBER OF VIEWS: Three views. TECHNIQUE: Frontal chest, supine abdomen and upright abdomen radiographic images acquired. LIMITATIONS: None. FINDINGS: CHEST: Lungs clear of infiltrates. FREE AIR: None. No abnormal gas collections. BOWEL GAS PATTERN: Nonobstructive pattern. No dilated loops or air fluid levels. CALCIFICATIONS: No suspicious calcifications. HARDWARE: An inferior vena cava filter is present. SOFT TISSUES: No gross mass or suggestion of organomegaly. BONES: No acute fracture. No worrisome bone lesions. OTHER: No other significant finding. IMPRESSION: NO RADIOGRAPHIC EVIDENCE FOR ACUTE ABDOMINAL DISEASE. TECHNICAL DOCUMENTATION: JOB ID: [id number] [employer]- All Rights Reserved
[2016-09-21 15:41] LABS: APPEARANCE,URINE SLIGHTLY-CLOUDY; BILIRUBIN,URINE NEGATIVE (NEGATIVE); GLUCOSE, URINE NEGATIVE (NEGATIVE); KETONES,URINE NEGATIVE (NEGATIVE); LEUKOCYTE ESTERASE,URINE NEGATIVE (NEGATIVE); NITRITE,URINE NEGATIVE (NEGATIVE); PROTEIN,URINE NEGATIVE (NEGATIVE); URINE SPECIFIC GRAVITY 1.028
[2016-09-21 15:57] LABS: URINE BARBITURATES SCREEN NEGATIVE; URINE METHADONE SCREEN NEGATIVE; URINE OPIATES LOW NEGATIVE; URINE PHENCYCLIDINE SCREEN NEGATIVE
[2016-09-21] MEDS ORDERED: DEXTROSE 5%-NORMAL SALINE 1,000 ML IV ONE (16:03)
[2016-09-21] MEDS ORDERED: MORPHINE SULFATE 10 MG/ML INJ IV ONE (16:05)
[2016-09-21] MEDS ORDERED: METHYLPREDNISOLONE INJ 125 MG/2 ML SDV IV ONE (17:20)
[2016-09-21] MEDS ORDERED: FAMOTIDINE INJ/PF 20 MG/2 ML SDV IV ONE (17:20)
[2016-09-21] MEDS ORDERED: DIPHENHYDRAMINE HCL 50 MG/ML VIAL IV ONE (17:20)
--- NOTE | 2016-09-21 18:30 | RADIOLOGY REPORT (SQ) ---
EXAM DESCRIPTION: CT ABD/PELVIS WITH IV ONLY COMPLETED DATE/TIME: 09/21/2016 6:11 pm REASON FOR STUDY: epig/umbilical pain, hx gastric bypass COMPARISON: 07/20/2016 TECHNIQUE: CT scan of the abdomen and pelvis performed using helical scanning technique with dynamic intravenous contrast injection. No oral contrast. Images reviewed with lung, soft tissue, and bone windows. Reconstructed coronal and sagittal MPR images reviewed. Delayed images for evaluation of the urinary system also acquired. All images stored on PACS. All CT scanners at this facility use dose modulation, iterative reconstruction, and/or weight based d osing when appropriate to reduce radiation dose to as low as reasonably achievable (ALARA). [facility]: Dose Right [facility]: CareDose [facility]: Dose Right [facility]: Teradose 4D [facility]: Interview CONTRAST TYPE AND DOSE: 100mL Isovue 370 RENAL FUNCTION: Creatinine 0.70 RADIATION DOSE: 24.37mGy. LIMITATIONS: None. FINDINGS: LOWER CHEST: No significant findings. No nodules or infiltrates. LIVER: Normal size. No masses or dilated ducts. SPLEEN: Normal size. No focal lesions. PANCREAS: No masses. No significant calcifications. No adjacent inflammation or peripancreatic fluid collections. Pancreatic duct not dilated. GALLBLADDER: No identified stones by CT criteria. No inflammatory changes to suggest cholecystitis. ADRENAL GLANDS: No significant masses or asymmetry. RIGHT KIDNEY AND URETER: No solid masses. No significant calcifications. No hydronephrosis or hyd roureter. LEFT KIDNEY AND URETER: No solid masses. No significant calcifications. No hydronephrosis or hydr oureter. AORTA AND VESSELS: No aneurysm. No dissection. Renal arteries, SMA, celiac without stenosis. RETROPERITONEUM: No retroperitoneal adenopathy, hemorrhage or masses. BOWEL AND PERITONEAL CAVITY: No masses or inflammatory changes. No free fluid or peritoneal masses. Patient is status post gastric bypass procedure. APPENDIX: Not identified PELVIS: No mass or free fluid. Normal bladder. ABDOMINAL WALL: No masses. A small left inguinal hernia is identified contain and a small amount of fluid. BONES: No significant or acute findings. OTHER: Vena cava filter is again identified. IMPRESSION: NO SIGNIFICANT OR ACUTE FINDING IN THE ABDOMEN OR PELVIS ON CT SCAN WITH IV CONTRAST. TECHNICAL DOCUMENTATION: JOB ID: [id number] Quality ID # [id number]: Final reports with documentation of one or more dose reduction techniques (e.g., Au tomated exposure control, adjustment of the mA and/or kV according to patient size, use of iterative reconstruction technique) 2010 [employer]- All Rights Reserved
[2016-09-21 19:48] VITALS: BP 126/84
--- NOTE | 2016-09-22 00:14 | EKG REPORT ---
SEVERITY:- BORDERLINE ECG - SINUS BRADYCARDIA INFERIOR Q WAVES, PROBABLY NORMAL VARIATION : Confirmed by: Festus Bill 22-Sep-2016 00:13:23
== END 2016-09-21 19:49 | disposition home or self-care (01) ==
LOC: ER 11:58
DX: E16.2 Hypoglycemia, unspecified (principal); R10.13 Epigastric pain; R51 Headache; R11.0 Nausea; R10.9 Unspecified abdominal pain; F17.200 Nicotine dependence, unspecified, uncomplicated; E78.00 Pure hypercholesterolemia, unspecified; J45.909 Unspecified asthma, uncomplicated; J44.9 Chronic obstructive pulmonary disease, unspecified; K21.9 Gastro-esophageal reflux disease without esophagitis; Z98.84 Bariatric surgery status; Z91.013 Allergy to seafood; Z88.6 Allergy status to analgesic agent
CPT/HCPCS: 93005; 99284; 96375; 96365; 36415; 82962; 83690; 83735; 84443; 85025; 80053; 81001; 80307; 74022; 74177; 93010; J1200; J3490; J2930; J2270; J2405; S0028

== ENCOUNTER 2016-11-07 10:23 | Emergency (ER) | payer OTHER ==
--- NOTE | 2016-11-07 10:48 | ER Document Report ---
ED Medical Screen (RME) - General Chief Complaint: Chest Pain Stated Complaint: CHEST PAIN Time Seen by Provider: 11/07/16 10:42 Mode of Arrival: Ambulatory Information source: Patient TRAVEL OUTSIDE OF THE [place] IN LAST 30 DAYS: No - HPI Onset: Yesterday - LAST PM Onset/Duration: Sudden Quality of pain: Sharp, Other - SORENESS Severity: Moderate Associated Symptoms: Cough (productive) Exacerbated by: Coughing, Deep breathing Relieved by: Denies Similar symptoms previously: No Recently seen / treated by doctor: No - Related Data Smoking: Cigarettes, Less than 1 pack/day Frequency of alcohol use: None Drug Abuse: None Allergies/Adverse Reactions: iodine [Iodine] Allergy (Severe, Verified 11/07/16 10:37) oxycodone HCl [From Percocet] Allergy (Severe, Verified 11/07/16 10:37) fish derived [Fish derived] Allergy (Verified 11/07/16 10:37) Shellfish * [Shellfish] Allergy (Verified 11/07/16 10:37) ibuprofen [Ibuprofen] Adverse Reaction (Severe, Verified 11/07/16 10:37) bleeding Past Medical History - General Information source: Patient - Social History Cigarette use (# per day): Yes Chew tobacco use (# tins/day): No Frequency of alcohol use: None Drug Abuse: None Lives with: Family Family history: Hypertension, Malignancy - Past Medical History Cardiac Medical History: Reports: Hx Hypercholesterolemia, Hx Hypertension - Resolved after bariatric surgery Pulmonary Medical History: Reports: Hx Asthma, Hx COPD, Hx Pneumonia, Hx Sleep Apnea Renal/ Medical History: Denies: Hx Peritoneal Dialysis GI Medical History: Reports: Hx Gastroesophageal Reflux Disease, Hx Irritable Bowel, Hx Ulcer Musculoskeltal Medical History: Reports Hx Musculoskeletal Trauma Skin Medical History: Reports Hx Cellulitis Psychiatric Medical History: Reports: Hx Anxiety, Hx Attention Deficit Hyperactivity Disorder, Hx Depression Traumatic Medical History: Reports: Hx Fractures - 5th finger Past Surgical History: Reports: Hx Abdominal Surgery - gastric bypass, Hx Bowel Surgery - hernia repair., Hx Gastric Bypass Surgery, Hx Herniorrhaphy - Immunizations Immunizations up to date: Yes Hx Diphtheria, Pertussis, Tetanus Vaccination: Yes Review of Systems - Review of Systems Constitutional: denies: Chills, Diaphoresis, Fever EENT: No symptoms reported Cardiovascular: See HPI Respiratory: See HPI Gastrointestinal: No symptoms reported. denies: Nausea Musculoskeletal: See HPI
[2016-11-07 11:07] LABS: ABSOLUTE EOSINOPHILS # (AUTO) 0.2 10^3/uL (0.0-0.6); ABSOLUTE LYMPHOCYTES (AUTO) 1.1 10^3/uL (0.5-4.7); ABSOLUTE MONOCYTES (AUTO) 0.8 10^3/uL (0.1-1.4); ABSOLUTE NEUT (AUTO) 9.3 10^3/uL (1.7-8.2); BASOPHILS % (AUTO) 0.3 % (0-2); EOSINOPHILS % (AUTO) 1.3 % (0-6); HEMATOCRIT 46.6 % (37.9-51.0); HEMOGLOBIN 15.2 g/dL (13.5-17.0); LYMPHOCYTES % (AUTO) 9.7 % (13-45); MEAN CORPUSCULAR HEMOGLOBIN 30.7 pg (27.0-33.4); MEAN CORPUSCULAR HGB CONC 32.5 g/dL (32.0-36.0); MEAN CORPUSCULAR VOLUME 94 fl (80-97); MONOCYTES % (AUTO) 6.8 % (3-13); RED BLOOD COUNT 4.95 10^6/uL (4.35-5.55); RED CELL DISTRIBUTION WIDTH 14.2 % (11.5-14.0); SEGMENTED NEUTROPHILS % (AUTO) 81.9 % (42-78); WHITE BLOOD COUNT 11.4 10^3/uL (4.0-10.5)
--- NOTE | 2016-11-07 11:08 | ER Document Report ---
ED Cardiac - General Chief Complaint: Chest Pain Stated Complaint: CHEST PAIN Time Seen by Provider: 11/07/16 10:42 Mode of Arrival: Ambulatory Notes: The patient is a 26-year-old male, past medical history gastric bypass, multiple abdominal surgeries, asthma, presents with 1 day of chest pain, dry cough and wheezing. He says that his chest pain is worse when he coughs. He ran out of his albuterol earlier today. Patient denies fevers, hemoptysis, leg swelling, nausea, vomiting, abdominal pain, recent travel or sick contacts. TRAVEL OUTSIDE OF THE [place] IN LAST 30 DAYS: No - Related Data Allergies/Adverse Reactions: iodine [Iodine] Allergy (Severe, Verified 11/07/16 10:37) oxycodone HCl [From Percocet] Allergy (Severe, Verified 11/07/16 10:37) fish derived [Fish derived] Allergy (Verified 11/07/16 10:37) Shellfish * [Shellfish] Allergy (Verified 11/07/16 10:37) ibuprofen [Ibuprofen] Adverse Reaction (Severe, Verified 11/07/16 10:37) bleeding Past Medical History - General Information source: Patient - Social History Smoking Status: Current Some Day Smoker Cigarette use (# per day): Yes Chew tobacco use (# tins/day): No Frequency of alcohol use: None Drug Abuse: None Lives with: Family Family History: Arthritis, Hypertension, Malignancy, Other - Seizures - Past Medical History Cardiac Medical History: Reports: Hx Hypercholesterolemia, Hx Hypertension - Resolved after bariatric surgery Pulmonary Medical History: Reports: Hx Asthma, Hx COPD, Hx Pneumonia, Hx Sleep Apnea Renal/ Medical History: Denies: Hx Peritoneal Dialysis GI Medical History: Reports: Hx Gastroesophageal Reflux Disease, Hx Irritable Bowel, Hx Ulcer Musculoskeltal Medical History: Reports Hx Musculoskeletal Trauma Skin Medical History: Reports Hx Cellulitis Psychiatric Medical History: Reports: Hx Anxiety, Hx Attention Deficit Hyperactivity Disorder, Hx Depression Traumatic Medical History: Reports: Hx Fractures - 5th finger Past Surgical History: Reports: Hx Abdominal Surgery - gastric bypass, Hx Bowel Surgery - hernia repair., Hx Gastric Bypass Surgery, Hx Herniorrhaphy - Immunizations Immunizations up to date: Yes Hx Diphtheria, Pertussis, Tetanus Vaccination: Yes Hx Pneumococcal Vaccination: 01/23/11 Review of Systems - Review of Systems Notes: REVIEW OF SYSTEMS: CONSTITUTIONAL: -fevers, -chills EENT: -eye pain, -difficulty swallowing, -nasal congestion CARDIOVASCULAR: +chest pain, -syncope. RESPIRATORY: -cough, +SOB GASTROINTESTINAL: -abdominal pain, - nausea, -vomiting, -diarrhea GENITOURINARY: -dysuria, -hematuria MUSCULOSKELETAL: -back pain, -neck pain SKIN: -rash or skin lesions. HEMATOLOGIC: -easy bruising or bleeding. LYMPHATIC: -swollen, enlarged glands. NEUROLOGICAL: -altered mental status or loss of consciousness, -headache, - neurologic symptoms PSYCHIATRIC: -anxiety, -depression. ALL OTHER SYSTEMS REVIEWED AND NEGATIVE. Physical Exam - Vital signs Vitals: Temp 99.3 F 11/07/16 11:41 - Notes Notes: PHYSICAL EXAMINATION: GENERAL: Well-appearing, well-nourished and in no acute distress. HEAD: Atraumatic, normocephalic. EYES: Pupils equal round and reactive to light, extraocular movements intact, sclera anicteric, conjunctiva are normal. ENT: nares patent, oropharynx clear without exudates. Moist mucous membranes. NECK: Normal range of motion, supple without lymphadenopathy LUNGS: No respiratory distress. Diffuse wheezing. HEART: Regular rate and rhythm without murmurs. Diffuse chest wall tenderness. ABDOMEN: Soft, nontender, normoactive bowel sounds. No guarding, no rebound. No masses appreciated. EXTREMITIES: Normal range of motion, no pitting or edema. No cyanosis. NEUROLOGICAL: Cranial nerves grossly intact. Normal speech, normal gait. Normal sensory and motor exams. PSYCH: Normal mood, normal affect. SKIN: Warm, Dry, normal turgor, no rashes or lesions noted. Course - Re-evaluation Re-evalutation: Patient appears in no respiratory distress. He does have diffuse wheezing bilaterally. After DuoNeb and steroids, patient feels much better and wheezing has resolved. Patient is PERC negative. EKG and troponin does not show any evidence of active ischemia. Counseled patient about smoking cessation and following up with primary care physician. Given return precautions and he understands. - Vital Signs Vital signs: Temp Pulse Resp BP Pulse Ox 99.3 F 11/07/16 11:41 - Laboratory Result Diagrams: 11/07/16 10:58 11/07/16 10:58 Laboratory results interpreted by me: 11/07/16 11/07/16 10:58 10:58 WBC 11.4 H RDW 14.2 H Seg Neutrophils % 81.9 H Lymphocytes % 9.7 L Absolute Neutrophils 9.3 H Creatine Kinase 247 H - Diagnostic Test Radiology reviewed: Image reviewed, Reports reviewed Radiology results interpreted by me: CXR: NAD - EKG Interpretation by Me EKG shows normal: Sinus rhythm, [place], Intervals, QRS Complexes, ST-T Waves Rate: Normal Discharge - Discharge Clinical Impression: Asthma exacerbation Chest pain Qualifiers: Chest pain type: unspecified Qualified Code(s): R07.9 - Chest pain, unspecified Condition: Good Disposition: HOME, SELF-CARE Additional Instructions: ASTHMA: You have been diagnosed as having asthma. This is a condition where there is episodic tightness in the bronchial tubes. Allergies, infections, and polluted or cold air may be contributing factors. Emergency treatment of a severe asthma attack may include adrenaline shots , or bronchodilator aerosol. You may feel lightheaded, have a decreased exercise tolerance and a rapid pulse for an hour or two. Rest and get plenty of fluids. Home treatment of asthma requires bronchodilator drugs. These can be administered by injection, inhalation, or by mouth. Antibiotics and corticosteroids may be required for some patients. You should avoid chemical fumes, dusts, pollens, and exercising in very cold or dry air. If you smoke, stop!! If you develop a fever, increased wheezing, chest pain, or severe shortness of breath, you should contact the doctor immediately. STEROID MEDICATION: You have been given an injection of or oral medicine of the cortisone/ steroid class. This medication is used to control inflammation or allergy. Jermain t is usually only given for a short period of time, until the acute process subsides. There are usually no side effects from short-term use of cortisone-like medications. Some persons feel an increased sense of well-being and are not sleepy at bedtime. Long-term use of cortisone medications is best avoided, unless required for a severe condition. If your condition does not remit, or relapses after the course of corticosteroid medication, you should consult your physician. INHALED BRONCHODILATORS: You have received treatment(s) of and/or prescription for an inhaled bronchodilator -- a medication which stimulates the airways in the lung to dilate. This improves the flow of air in asthma, bronchitis, and emphysema. These medicines have some similarity to adrenaline, and can cause similar side effects: shakiness, racing heart, and a sense of nervousness. These side effects decrease with time. Contact your doctor if these side effects are severe. Do not over-use the medicine. Too-frequent use of the inhaler may make it ineffective. Call your doctor if the inhaler is not controlling your symptoms at the prescribed doses. SMOKING: If you smoke, you should stop smoking. The tar and chemicals in cigarette smoke are harmful. Smoking has been shown to cause: emphysema chronic bronchitis lung cancer mouth and throat cancer stomach and pancreas cancer premature aging defects In addition, smoking increases ear and lung infections in children of smokers. USE OF ACETAMINOPHEN: Acetaminophen may be taken for pain relief or fever control. It's much safer than aspirin, offering a wider range of "safe" dosages. It is safe during . Some brand names are Tylenol, Panadol, Datril, Anacin 3, Tempra, and Liquiprin. Acetaminophen can be repeated every four hours. The following are maximum recommended dosages: FOLLOW-UP CARE: If you have been referred to a physician for follow-up care, call the physician s office for an appointment as you were instructed or within the next two days. If you experience worsening or a significant change in your symptoms, notify the physician immediately or return to the Emergency Department at any time for re-evaluation. CHEST PAIN OF UNCLEAR CAUSE: The exact cause of your chest pain isn't clear. Fortunately, there is no evidence of a dangerous medical condition. Further testing may be required to find the source of the pain. Most often, we find that this pain is coming from the chest wall -- the muscles or rib joints in the chest. But chest pain can come from the lung and lung lining, the esophagus, the heart valves or heart lining, and even the stomach or gallbladder. Rest. Eat lightly until the pain is gone. We may prescribe medicine for pain and inflammation. You should call the physician immediately if the pain radiates to the shoulder, jaw or arms; if you start to run a fever or develop a cough; or if you develop shortness of breath, or other new or alarming symptoms. NORMAL EXAM AND WORKUP: At this time, your examination and workup show no significant abnormality. No significant abnormal physical findings were noted. All laboratory, EKG, and imaging (x-ray, CT scans, ultrasound) studies that were ordered show no significant abnormality. Although your examination and all studies that were ordered showed no significant abnormal finding, there are no examinations and no studies that are 100% accurate. There is always the possibility that some abnormality could exist and not be detected with physical examination or within the limits and capabilities of laboratory and other studies. You should return or follow up as you were instructed on your visit today for further evaluation if your symptoms do not resolve. CHEST WALL PAIN: Your chest pain may be coming from the chest wall. This is often caused by straining the muscles or joints in the chest during physical activity, direct trauma, coughing, or vigorous vomiting. Persons with arthritis are especially prone to this type of pain, due to inflammation of the cartilage joints near the breast bone. Occasionally, no cause can be found. Rest from strenuous physical activity. This kind of chest pain is usually made worse by movement of the chest. Depending on the symptoms, we may prescribe medicine for pain, muscle relaxation, and antiinflammatory effects. If the pain is new, and seems to be due to muscle strain, cold packs can help. Otherwise, apply gentle warmth to the painful area for 15 minutes every hour or two. You should call contact the doctor immediately if things change. Further evaluation is needed if you develop a fever or cough, if the nature of the pain changes, or if you become short of breath. FOLLOW-UP CARE: If you have been referred to a physician for follow-up care, call the physician s office for an appointment as you were instructed or within the next two days. If you experience worsening or a significant change in your symptoms, notify the physician immediately or return to the Emergency Department at any time for re-evaluation. Prescriptions: Albuterol Sulfate [Proair HFA Inhalation Aerosol 8.5 gm MDI] 2 puff IH Q4H PRN # 1 mdi PRN Reason: Prednisone [Deltasone 20 mg Tablet] 3 tab PO DAILY 5 Days
[2016-11-07] MEDS ORDERED: IPRATROPIUM/ALBUTEROL 0.5-2.5 MG/3 ML AMPUL NEB ONE (11:11)
[2016-11-07] MEDS ORDERED: PREDNISONE 20 MG TABLET PO ONE (11:11)
--- NOTE | 2016-11-07 11:24 | RADIOLOGY REPORT (SQ) ---
EXAM DESCRIPTION: CHEST PA/LAT COMPLETED DATE/TIME: 11/07/2016 11:12 am REASON FOR STUDY: CHEST PAIN, COUGH COMPARISON: 01/10/2016. EXAM PARAMETERS: NUMBER OF VIEWS: two views TECHNIQUE: Digital Frontal and Lateral radiographic views of the chest acquired. RADIATION DOSE: NA LIMITATIONS: none FINDINGS: LUNGS AND PLEURA: No opacities, masses or pneumothorax. No pleural effusion. MEDIASTINUM AND HILAR STRUCTURES: No masses or contour abnormalities. HEART AND VASCULAR STRUCTURES: Heart normal size. No evidence for failure. BONES: No acute findings. HARDWARE: None in the chest. OTHER: No other significant finding. IMPRESSION: NO SIGNIFICANT RADIOGRAPHIC FINDING IN THE CHEST. TECHNICAL DOCUMENTATION: JOB ID: [id number] [employer]- All Rights Reserved
[2016-11-07 11:32] LABS: ALANINE AMINOTRANSFERASE 29 U/L (21-72); ALBUMIN 4.5 g/dL (3.5-5.0); ALKALINE PHOSPHATASE 50 U/L (38-126); ANION GAP 9 (5-19); ASPARTATE AMINO TRANSFERASE 28 U/L (17-59); BILIRUBIN,DIRECT 0.2 mg/dL (0.0-0.4); BLOOD UREA NITROGEN 9 mg/dL (7-20); CALCIUM 9.5 mg/dL (8.4-10.2); CARBON DIOXIDE 27 mmol/L (22-30); CHLORIDE 103 mmol/L (98-107); CREATINE KINASE 247 U/L (55-170); CREATININE RESULT 0.79 mg/dL (0.52-1.25); GLUCOSE 89 mg/dL (75-110); POTASSIUM 4.5 mmol/L (3.6-5.0); SODIUM 139.1 mmol/L (137-145); TOTAL PROTEIN 7.7 g/dL (6.3-8.2)
[2016-11-07] MEDS ORDERED: ACETAMINOPHEN 325 MG TABLET PO ONE (11:35)
[2016-11-07 11:43] LABS: CREATINE KINASE MB 1.29 ng/mL (<4.55)
[2016-11-07 11:44] LABS: TROPONIN I < 0.012 ng/mL
[2016-11-07 12:36] VITALS: BP 133/53
--- NOTE | 2016-11-07 14:05 | EKG REPORT ---
SEVERITY:- ABNORMAL ECG - SINUS RHYTHM RIGHT ATRIAL ABNORMALITY : Confirmed by: Keshav Tamayo MD 07-Nov-2016 14:04:36
== END 2016-11-07 12:36 | disposition home or self-care (01) ==
LOC: ER 10:23
DX: J45.901 Unspecified asthma with (acute) exacerbation (principal); R07.9 Chest pain, unspecified; R05 Cough; R06.2 Wheezing; F17.210 Nicotine dependence, cigarettes, uncomplicated
CPT/HCPCS: 93005; 99285; 36415; 82553; 82550; 85025; 80053; 84484; 71020; 93010; J7512; J7620

== ENCOUNTER 2016-11-07 19:21 | Inpatient (IN) | payer OTHER ==
[2016-11-07] MEDS ORDERED: MAG HYDROX/AL HYDROX/SIMETH SUSP 30 ML UDCUP PO ONE (19:32)
[2016-11-07] MEDS ORDERED: FAMOTIDINE 20 MG TABLET PO ONE (19:32)
[2016-11-07] MEDS ORDERED: NORMAL SALINE 1000 ML 1,000 ML IV ONE (19:33)
--- NOTE | 2016-11-07 19:35 | ER Document Report ---
ED Respiratory Problem - General Chief Complaint: Breathing Difficulty Stated Complaint: DIFFICULTY BREATHING Time Seen by Provider: 11/07/16 19:27 Notes: Patient is a 26-year-old male with a history of asthma and smoking that comes emergency department by EMS for chief complaint of wheezing and difficulty breathing. He said he has had symptoms of wheezing for the past couple of days. He was evaluated in this emergency department this morning, given prednisone, albuterol treatments, albuterol and prednisone prescription, and return precautions. He received solu-medrol on EMS and 2 albuterol treatments. He states he is out of his nebulizer at home and only has a rescue inhaler. He has a cough with brownish dark colored sputum, no recorded fevers. Patient also reports some pain in his upper abdomen. Past medical history of gastric bypass. TRAVEL OUTSIDE OF THE [place] IN LAST 30 DAYS: No - Related Data Allergies/Adverse Reactions: iodine [Iodine] Allergy (Severe, Verified 11/07/16 10:37) oxycodone HCl [From Percocet] Allergy (Severe, Verified 11/07/16 22:28) fish derived [Fish derived] Allergy (Verified 11/07/16 10:37) Shellfish * [Shellfish] Allergy (Verified 11/07/16 10:37) ibuprofen [Ibuprofen] Adverse Reaction (Severe, Verified 11/07/16 10:37) bleeding Past Medical History - General Information source: Patient - Social History Smoking Status: Current Some Day Smoker Frequency of alcohol use: None Drug Abuse: None Lives with: Family Family History: Arthritis, Hypertension, Malignancy, Other - Seizures - Past Medical History Cardiac Medical History: Reports: Hx Hypercholesterolemia, Hx Hypertension - Resolved after bariatric surgery Pulmonary Medical History: Reports: Hx Asthma, Hx COPD, Hx Pneumonia, Hx Sleep Apnea Renal/ Medical History: Denies: Hx Peritoneal Dialysis GI Medical History: Reports: Hx Gastroesophageal Reflux Disease, Hx Irritable Bowel, Hx Ulcer Musculoskeltal Medical History: Reports Hx Musculoskeletal Trauma Skin Medical History: Reports Hx Cellulitis Psychiatric Medical History: Reports: Hx Anxiety, Hx Attention Deficit Hyperactivity Disorder, Hx Depression Traumatic Medical History: Reports: Hx Fractures - 5th finger Past Surgical History: Reports: Hx Abdominal Surgery - gastric bypass, Hx Bowel Surgery - hernia repair., Hx Gastric Bypass Surgery, Hx Herniorrhaphy - Immunizations Immunizations up to date: Yes Hx Diphtheria, Pertussis, Tetanus Vaccination: Yes Hx Pneumococcal Vaccination: 01/23/11 Review of Systems - Review of Systems Constitutional: No symptoms reported EENT: No symptoms reported Cardiovascular: No symptoms reported Respiratory: See HPI Gastrointestinal: No symptoms reported Genitourinary: No symptoms reported Male Genitourinary: No symptoms reported Musculoskeletal: No symptoms reported Skin: No symptoms reported Hematologic/Lymphatic: No symptoms reported Neurological/Psychological: No symptoms reported Physical Exam - Vital signs Vitals: Pulse Ox 99 11/07/16 19:33 Interpretation: Normal - General General appearance: Appears well, Alert - HEENT Head: Normocephalic, Atraumatic Eyes: Normal Pupils: PERRL - Respiratory Respiratory status: No respiratory distress. No: Labored, Tachypnea Chest status: Nontender Breath sounds: Decreased air movement, Wheezing - Wheezing and coarse lung sounds throughout lung gregory, but air movement still hear well - Cardiovascular Rhythm: Regular. No: Tachycardia Heart sounds: Normal auscultation, S1 appreciated, S2 appreciated Murmur: No - Abdominal Inspection: Normal Distension: No distension Bowel sounds: Normal Tenderness: Nontender. No: Tender, Guarding Organomegaly: No organomegaly - Back Back: Normal, Nontender. No: Tender - Extremities General upper extremity: Normal inspection, Nontender, Normal color, Normal ROM , Normal temperature General lower extremity: Normal inspection, Nontender, Normal color, Normal ROM , Normal temperature, Normal weight bearing. No: Mariam's sign - Neurological Neuro grossly intact: Yes Cognition: Normal Orientation: AAOx4 [place] Coma Scale Eye Opening: Spontaneous Nesha Coma Scale Verbal: Oriented [place] Coma Scale Motor: Obeys Commands [place] Coma Scale Total: 15 Speech: Normal Cranial nerves: Normal Cerebellar coordination: Normal Motor strength normal: LUE, RUE, LLE, RLE Sensory: Normal - Psychological Associated symptoms: Normal affect, Normal mood - Skin Skin Temperature: Warm Skin Moisture: Dry Skin Color: Normal Course - Re-evaluation Re-evalutation: 11/07/16 19:30 Patient able to speak in full sentences. He has wheezing throughout all lung gregory. No hypoxia. No retractions, mild tachypnea. Patient is stable, beginning treatments, review of patient's earlier workup shows no concerning abnormalities on laboratory testing or chest x-ray. Patient states he smoked 3 days ago. Patient also complaining of heartburn, was given prednisone, has a history of gastric bypass, getting medications for this as well. 11/07/16 21:00 On reevaluation patient still has loud wheezing throughout lung gregory, tachypnea has resolved, he is not hypoxic. He is not retracting, he is not in respiratory distress. However because of ongoing symptoms, patient already having to return for asthma exacerbation today, this will be discussed with hospitalist for potential admission. Venous blood gas checked and is normal. Discussed with Dr. Holliday. 11/07/[address] Rodriguez, patient will be admitted to [facility] observation. Patient states agreement with plan. - Vital Signs Vital signs: Temp Pulse Resp BP Pulse Ox 98.8 F 22 H 139/80 H 99 11/07/16 22:53 11/08/16 00:01 11/08/16 00:01 11/08/16 00:01 - Laboratory Result Diagrams: 11/07/16 22:44 11/07/16 22:44 Discharge - Discharge Clinical Impression: Asthma exacerbation, Wheezing, Tobacco abuse Condition: Stable Disposition: ADMITTED OBSERVATION Admitting Provider: Hospitalist Unit Admitted: [facility]
[2016-11-07] MEDS ORDERED: IPRATROPIUM/ALBUTEROL 0.5-2.5 MG/3 ML AMPUL NEB ONE ×2 (19:43)
[2016-11-07 20:00] LABS: VENOUS BLOOD BASE EXCESS -1.1 mmol/L; VENOUS BLOOD PCO2 36.7 mmHg (35-63); VENOUS BLOOD PH 7.41 (7.30-7.42)
[2016-11-07] MEDS: MAGNESIUM SULFATE/D5W 100 ML IV SCH ×2 (20:04→20:34)
[2016-11-07] MEDS ORDERED: NORMAL SALINE 1000 ML 1,000 ML IV PRN (22:26)
[2016-11-07] MEDS ORDERED: NICOTINE 7 MG/24 HR PATCH.TD24 TD PRN (22:27)
[2016-11-07] MEDS ORDERED: AZITHROMYCIN INJ 500 MG VIAL IV PRN (22:48)
[2016-11-07 22:51] LABS: URINE BARBITURATES SCREEN NEGATIVE; URINE METHADONE SCREEN NEGATIVE; URINE OPIATES LOW NEGATIVE; URINE PHENCYCLIDINE SCREEN NEGATIVE
[2016-11-07 22:52] LABS: HEMATOCRIT 45.7 % (37.9-51.0); HGB HCT DIFFERENCE -0.7; MEAN CORPUSCULAR HGB CONC 32.8 g/dL (32.0-36.0); MEAN CORPUSCULAR VOLUME 95 fl (80-97); RED BLOOD COUNT 4.84 10^6/uL (4.35-5.55); RED CELL DISTRIBUTION WIDTH 14.2 % (11.5-14.0); WHITE BLOOD COUNT 10.7 10^3/uL (4.0-10.5)
--- NOTE | 2016-11-07 22:56 | PDOC H&P ---
History of Present Illness Admission Date/PCP: 11/07/16 21:17 [facility] Patient complains of: Difficulty breathing, epigastric pain History of Present Illness: JOHN GLORIA is a 26 year old male with long-standing asthma, one half pack a day smoker, who presents to the emergency room for evaluation of above complaints. Patient has been discussed with emergency room nurse practitioner who evaluated the patient. Describes a 2 day history of slowly progressive difficulty breathing, in terms of increased shortness of breath and wheezing, with shortness of breath particularly noticeable with much of any activity. Cough productive of brown sputum. Shaking chills, with feeling of being "hot." Positive nausea but no vomiting. No diarrhea or dysuria. Was actually seen in the emergency room earlier today for breathing difficulty but discharged home. Returned when his breathing difficulty worsened. Describes chronic epigastric pain since last February, when he was transferred to [facility], where he underwent open exploratory laparotomy with patch of a perforated ulcer. However, states the pain usually does not radiate to his back, which started earlier today. Status post gastric bypass in 2012 with subsequent 350 pound weight loss. Laboratory results are listed in [email or web address] and are reviewed. X-ray summary results from earlier today reviewed.. EKG pending and compared to a tracing from earlier today. Social history/personal habits: . Has children. Works part-time as a cady. Half pack of cigarettes per day. Sixpack of beer per week. No illicit drug use. Allergies/adverse reactions are listed in [email or web address] and are reviewed. Home medications consist only of multivitamins. REVIEW OF SYSTEMS: Constitutional: See history and present illness. Eyes: No vision complaints. ENT: No swallowing problems or complaints. Denies hearing loss. Pulmonary: See history and present illness. Cardiovascular: No current complaints, including chest pain. Gastrointestinal: See history and present illness. Skin: No current complaints, including rashes. Hematologic: Denies easy bruising. Neurologic: No current complaints, including numbness or tingling. Musculoskeletal: No current or chronic joint complaints, such as arthritis. Psychiatric: Denies anxiety or depression. Endocrine: No current complaints, including polyuria. Genitourinary: No current complaints, including dysuria. PHYSICAL EXAMINATION: 6 feet 2 inches tall. 107 kg. BMI 30.3 kg/m. Blood pressure 157/86. Pulse 92 and regular. 100% saturation on 1 L oxygen per nasal cannula. Respirations are 17 and unlabored. Temperature not recorded on chart; skin feels normothermic. Slightly obese otherwise well-developed young male appearing approximately his stated age. Pleasant awake alert and cooperative. No obvious distress other than complaints of mild epigastric discomfort. Mildly anxious, without agitation. Skin is warm and dry. No grossly obvious evidence of rash in areas of skin examined. No subcutaneous nodules palpated. ENT: Hearing grossly normal to normal conversation. Tongue midline on protrusion pink and moist. Eyes: No scleral icterus. Pupils equal and reactive to light at 4 mm. [place] conjunctivae. Neck is supple and nontender to gentle active range of motion and palpation. Midline trachea. No palpable thyroid nodule mass enlargement or tenderness. Lymphatic: No palpable cervical or clavicular nodes. Neck and lymphatic exams limited by patient body habitus. Psychiatric: Reasonable insight into acute and chronic medical issues. Oriented to time location and why here. Lungs: Auscultation reveals equal breath sounds bilaterally. No use of accessory respiratory muscles. Slightly coarse breath sounds, along with mild inspiratory and expiratory wheezing. Cardiovascular regular rate and rhythm, without gallop murmur or rub. No carotid or abdominal aortic bruits. Mild bilateral symmetric slightly pitting calf ankle and pedal edema; patient describes chronic lymphedema of his lower extremities, without recent change.. Faintly palpable dorsalis pedis pulses. Abdomen:soft somewhat obese with occasional bowel sounds. Mild epigastric discomfort to palpation, without evidence of guarding or peritoneal signs. Unable to adequately evaluate abdomen for masses or organomegaly due to body habitus and discomfort. Extremities: Feet are warm and dry. No calf tenderness to compression. Gentle manipulation of lower extremities fails to reveal any obvious evidence of injury or instability to knees hips or ankles. Neurologic: Moves upper extremities grossly normally. Patellar reflexes absent. Absent Babinski. Light touch is intact at feet. Dorsiflexion and plantarflexion of feet 5 / 5 and symmetric. Past Medical History Cardiac Medical History: Reports: DVT - Possible history; has undergone vena caval filter implant., Hyperlipidema, Hypertension - Resolved after bariatric surgery Denies: Atrial Fibrillation, Congestive Heart Failure, Pulmonary Embolism Pulmonary Medical History: Reports: Asthma, Chronic Obstructive Pulmonary Disease (COPD), Pneumonia, Sleep Apnea - Resolved after bariatric surgery EENT Medical History: Denies: Eyes, Ears, Throat Neurological Medical History: Denies: Hemorrhagic CVA, Ischemic CVA, Seizures Endocrine Medical History: Reports: Diabetes Mellitus Type 2 - Resolved after bariatric surgery Denies: Diabetes Mellitus Type 1, Hyperthyroidism, Hypothyroidism Renal/ Medical History: Reports: None GI Medical History: Reports: Gastroesophageal Reflux Disease, Peptic Ulcer Disease - Surgical repair of perforated ulcer, February 2016, [facility] Denies: Cirrhosis, Hepatitis Musculoskeltal Medical History: Denies: Arthritis Skin Medical History: Reports: None Psychiatric Medical History: Reports: Depression, General Anxiety Disorder, Tobacco Dependency Denies: Alcohol Dependency - Sixpack of beer per week, Substance Abuse Hematology: Reports: None Infectious Medical History: Denies: Clostridium Difficile, Hepatitis B, Hepatitis C, Methicillin- Resistant Staph Aureus Past Surgical History Past Surgical History: Reports: Gastric Bypass Surgery, Herniorrhaphy, Other - Vena caval filter implant Social History Information Source: Patient, Emergency Med Personnel, [facility] Records Lives with: Family Smoking Status: Current Every Day Smoker Frequency of Alcohol Use: Social Hx Recreational Drug Use: No Drugs: None Hx Prescription Drug Abuse: No - Advance Directive Resuscitation Status: Full Code Surrogate healthcare decision maker:: Uncertain Family History Family History: Arthritis, Hypertension, Malignancy, Other - Seizures Parental Family History Reviewed: Yes - Mother alive with hypertension; father with seizure disorder Children Family History Reviewed: Yes - Eczema and asthma Sibling(s) Family History Reviewed.: Yes - Healthy Medication/Allergy Home Medications: Hydrocodone/Acetaminophen [Lortab 7.5-325 mg/15 ml Oral Soln] 10 ml PO Q6H PRN # 90 ml 03/21/16 Cyclobenzaprine HCl [Flexeril 10 Mg Tablet] 10 mg PO TIDP PRN #15 tablet Tramadol HCl [Ultram 50 mg Tablet] 50 mg PO ASDIR PRN #15 tablet 07/14/16 Omeprazole Magnesium [Prilosec Otc] 20 mg PO DAILY #15 tablet. 09/21/16 Ondansetron HCl [Zofran 4 mg Tablet] 1 - 2 tab PO Q6 PRN #12 tablet 09/21/16 Sucralfate [Carafate 1 gm Tablet] 1 gm PO ACHS #40 tablet 09/21/16 Albuterol Sulfate [Proair HFA Inhalation Aerosol 8.5 gm MDI] 2 puff IH Q4H PRN # 1 mdi 11/07/16 Prednisone [Deltasone 20 mg Tablet] 3 tab PO DAILY 5 Days 11/07/16 Allergies/Adverse Reactions: iodine [Iodine] Allergy (Severe, Verified 11/07/16 10:37) oxycodone HCl [From Percocet] Allergy (Severe, Verified 11/07/16 22:28) fish derived [Fish derived] Allergy (Verified 11/07/16 10:37) Shellfish * [Shellfish] Allergy (Verified 11/07/16 10:37) ibuprofen [Ibuprofen] Adverse Reaction (Severe, Verified 11/07/16 10:37) bleeding Physical Exam Vital Signs: Temp Pulse Resp BP Pulse Ox 19 157/86 H 100 11/07/16 21:02 11/07/16 21:02 11/07/16 21:02 Assessment & Plan - Diagnosis (1) Asthma exacerbation Is this a current diagnosis for this admission?: YesPlan: Patient will be admitted under asthma exacerbation and pneumonia protocol, given his chills, possible fever, and productive cough . Incentive spirometry twice a day. Scheduled DuoNeb's. As needed albuterol nebs. Antibiotics will consist of intravenous Zithromax along with Rocephin . I strongly encouraged patient to notify staff should patient feel that breathing is worsening. Patient is a full code. I have strongly encouraged patient to be careful getting out of bed without notifying staff, to avoid a fall with injury. Knee high SCDs for DVT prophylaxis, along with subcutaneous Lovenox. Impression and plans were discussed with patient who concurs. Time spent in evaluation and management of patient: 68 minutes. (2) Chills Is this a current diagnosis for this admission?: Yes (3) Epigastric abdominal pain Is this a current diagnosis for this admission?: YesPlan: Acute abdominal series. Lipase. As needed Tylenol. (4) Tobacco dependency Is this a current diagnosis for this admission?: YesPlan: As needed nicotine patch. - Time Anticipated discharge: Home Within: within 48 hours
--- NOTE | 2016-11-07 22:57 | RADIOLOGY REPORT (SQ) ---
EXAM DESCRIPTION: ACUTE ABDOMEN SERIES COMPLETED DATE/TIME: 11/07/2016 10:44 pm REASON FOR STUDY: abdominal pain COMPARISON: Radiographs of the chest from earlier. NUMBER OF VIEWS: Three views. TECHNIQUE: Frontal chest, supine abdomen and upright/decubitus abdomen radiographic images acquired. LIMITATIONS: None. FINDINGS: CHEST: Lungs clear of infiltrates. FREE AIR: None. No abnormal gas collections. BOWEL GAS PATTERN: Nonobstructive pattern. No dilated loops or air fluid levels. CALCIFICATIONS: No suspicious calcifications. HARDWARE: IVC filter in place. SOFT TISSUES: No gross mass or suggestion of organomegaly. BONES: No acute fracture. No worrisome bone lesions. OTHER: No other significant finding. IMPRESSION: NO RADIOGRAPHIC EVIDENCE FOR ACUTE ABDOMINAL DISEASE. TECHNICAL DOCUMENTATION: JOB ID: [id number] [place]- All Rights Reserved
[2016-11-07] MEDS ORDERED: AZITHROMYCIN 500 MG in DEXTROSE 5%-WATER 250 ML IV ONE (23:00)
[2016-11-07] MEDS ORDERED: CEFTRIAXONE 1 GM/D5W RTU 1 GM/50 ML RTUPB IV ONE (23:00)
[2016-11-07 23:07] LABS: BAND NEUTROPHILS % (MANUAL) 1 % (3-5); BASOPHILS % (MANUAL) 0 % (0-2); EOSINOPHILS % (MANUAL) 0 % (0-6); LYMPHOCYTES % (MANUAL) 1 % (13-45); TOTAL CELLS COUNTED 100
[2016-11-07 23:09] LABS: ALANINE AMINOTRANSFERASE 33 U/L (21-72); ALBUMIN 4.4 g/dL (3.5-5.0); ALKALINE PHOSPHATASE 50 U/L (38-126); ANION GAP 12 (5-19); ASPARTATE AMINO TRANSFERASE 26 U/L (17-59); BILIRUBIN,DIRECT 0.2 mg/dL (0.0-0.4); BILIRUBIN,TOTAL 0.8 mg/dL (0.2-1.3); BLOOD UREA NITROGEN 8 mg/dL (7-20); CALCIUM 9.4 mg/dL (8.4-10.2); CARBON DIOXIDE 21 mmol/L (22-30); CHLORIDE 107 mmol/L (98-107); GLUCOSE 140 mg/dL (75-110); LIPASE 28.5 U/L (23-300); MAGNESIUM 2.5 mg/dL (1.6-2.3); POTASSIUM 4.2 mmol/L (3.6-5.0); TOTAL PROTEIN 7.7 g/dL (6.3-8.2)
[2016-11-07 23:10] LABS: ANISOCYTOSIS SLIGHT; OVALOCYTES SLIGHT; PLATELET CLUMPS PRESENT; POIKILOCYTOSIS SLIGHT; TOXIC GRANULATION SLIGHT
--- NOTE | 2016-11-08 00:54 | RADIOLOGY REPORT (SQ) ---
EXAM DESCRIPTION: CHEST SINGLE VIEW COMPLETED DATE/TIME: 11/08/2016 12:37 am REASON FOR STUDY: ASTHMA EXAC/LAT VIEW ONLY COMPARISON: Chest x-ray 11/07/2016. EXAM PARAMETERS: NUMBER OF VIEWS: One view. TECHNIQUE: Single lateral radiographic view of the chest acquired. RADIATION DOSE: NA LIMITATIONS: None. FINDINGS: No pleural effusion, consolidation or pneumothorax on single lateral view of the chest. T he heart is not enlarged. IMPRESSION: No acute radiographic finding on lateral view of the chest. TECHNICAL DOCUMENTATION: JOB ID: [id number]
[2016-11-08 01:40] LABS: VENOUS BLOOD BASE EXCESS -2.3 mmol/L; VENOUS BLOOD HCO3 21.2 mmol/L (20-32); VENOUS BLOOD PCO2 33.1 mmHg (35-63); VENOUS BLOOD PH 7.42 (7.30-7.42)
[2016-11-08] MEDS: ACETAMINOPHEN 325 MG TABLET PO PRN ×2 (01:45→21:50)
[2016-11-08] MEDS: PROMETHAZINE HCL 25 MG TABLET PO PRN ×2 (01:45→21:50)
[2016-11-08] MEDS: METHYLPREDNISOLONE INJ 125 MG/2 ML SDV IV SCH ×3 (01:45→17:36)
[2016-11-08] MEDS: MORPHINE SULFATE 10 MG/ML INJ IV PRN ×4 (02:33→21:49)
[2016-11-08] MEDS: FAMOTIDINE INJ/PF 20 MG/2 ML SDV IV SCH ×2 (05:45→17:36)
--- NOTE | 2016-11-08 05:49 | RADIOLOGY REPORT (SQ) ---
EXAM DESCRIPTION: CT ABD/PELVIS ORAL ONLY COMPLETED DATE/TIME: 11/08/2016 5:23 am REASON FOR STUDY: epig pain; hx perf ulcer, 03/10; s/p gastric bypass COMPARISON: CT abdomen and pelvis 09/21/2016, 01/14/2016. TECHNIQUE: CT scan of the abdomen and pelvis performed with oral contrast. Images reviewed with lung , soft tissue, and bone windows. Reconstructed coronal and sagittal MPR images reviewed. All images s tored on PACS. All CT scanners at this facility use dose modulation, iterative reconstruction, and/or weight based d osing when appropriate to reduce radiation dose to as low as reasonably achievable (ALARA). [facility]: Dose Right [facility]: CareDose [facility]: Dose Right [facility]: Teradose 4D [facility]: Smart HelloBooks RADIATION DOSE: Up-to-date CT equipment and radiation dose reduction techniques were employed. CTDIv ol: 10.8 mGy. DLP: 617 mGy-cm.mGy. LIMITATIONS: None. FINDINGS: LOWER CHEST: Ground-glass opacity at the left lower lobe. No pleural effusion. NON-CONTRASTED LIVER, SPLEEN, ADRENALS: Evaluation limited by lack of IV contrast. No identified sign ificant masses. PANCREAS: No peripancreatic inflammatory changes. GALLBLADDER: Cholelithiasis. RIGHT KIDNEY AND URETER: Assessment for masses limited by lack of IV contrast. No significant calci fications. No hydronephrosis or hydroureter. LEFT KIDNEY AND URETER: Assessment for masses limited by lack of IV contrast. No significant calcif ications. No hydronephrosis or hydroureter. AORTA AND RETROPERITONEUM: No abdominal aortic aneurysm. No retroperitoneal masses or adenopathy. IV C filter noted, with the struts extending outside of the vessel lumen. BOWEL AND PERITONEAL CAVITY: Postsurgical changes at the stomach and small bowel loops. Oral contras t is seen in nondilated small bowel loops. Enteroenteric intussusception in the midline upper abdomen . No focal inflammatory changes. No free fluid or free air. APPENDIX: Not visualized. PELVIS, BLADDER, AND ABDOMINAL WALL:The urinary bladder is partially distended. No pelvic mass. No free fluid. BONES: No acute findings. IMPRESSION: Enteroenteric intussusception in the midline upper abdomen. No CT evidence for small chepe wel obstruction. Cholelithiasis. IVC filter with the struts extending outside of the vessel lumen. Ground-glass opacity at the left lower lobe, may represent pneumonia or atelectasis. TECHNICAL DOCUMENTATION: JOB ID: [id number] [facility] Quality ID # [id number]: Final reports with documentation of one or more dose reduction techniques (e.g., Au tomated exposure control, adjustment of the mA and/or kV according to patient size, use of iterative reconstruction technique) 2010 [place]- All Rights Reserved
[2016-11-08] MEDS ORDERED: MORPHINE SULFATE 10 MG/ML INJ IV ONE (06:17)
[2016-11-08] MEDS ORDERED: SUCRALFATE 1 GM TABLET PO ONE (06:19)
[2016-11-08] MEDS: ALBUTEROL SULFATE 0.083% NEB 2.5 MG/3 ML AMPUL NEB PRN (06:46)
[2016-11-08 07:02] LABS: ABSOLUTE LYMPHOCYTES (AUTO) 0.5 10^3/uL (0.5-4.7); ABSOLUTE MONOCYTES (AUTO) 0.1 10^3/uL (0.1-1.4); BASOPHILS % (AUTO) 0.1 % (0-2); HEMATOCRIT 43.9 % (37.9-51.0); HEMOGLOBIN 14.5 g/dL (13.5-17.0); HGB HCT DIFFERENCE -0.4; LYMPHOCYTES % (AUTO) 5.2 % (13-45); MEAN CORPUSCULAR HEMOGLOBIN 30.9 pg (27.0-33.4); MEAN CORPUSCULAR VOLUME 94 fl (80-97); MONOCYTES % (AUTO) 0.8 % (3-13); RED BLOOD COUNT 4.68 10^6/uL (4.35-5.55); RED CELL DISTRIBUTION WIDTH 14.2 % (11.5-14.0); SEGMENTED NEUTROPHILS % (AUTO) 93.9 % (42-78); WHITE BLOOD COUNT 9.5 10^3/uL (4.0-10.5)
--- NOTE | 2016-11-08 07:20 | EKG REPORT ---
SEVERITY:- OTHERWISE NORMAL ECG - SINUS ARRHYTHMIA, RATE 48-81 ST ELEV, PROBABLE NORMAL EARLY REPOL PATTERN : Confirmed by: Festus Bill 08-Nov-2016 07:18:37
--- NOTE | 2016-11-08 07:20 | EKG REPORT ---
SEVERITY:- BORDERLINE ECG - SINUS RHYTHM INFERIOR Q WAVES, PROBABLY NORMAL VARIATION ST ELEV, PROBABLE NORMAL EARLY REPOL PATTERN : Confirmed by: Festus Bill 08-Nov-2016 07:18:58
[2016-11-08] MEDS: IPRATROPIUM/ALBUTEROL 0.5-2.5 MG/3 ML AMPUL NEB SCH ×3 (07:52→19:41)
[2016-11-08 10:19] LABS: ANION GAP 7 (5-19); BLOOD UREA NITROGEN 7 mg/dL (7-20); CALCIUM 9.3 mg/dL (8.4-10.2); CARBON DIOXIDE 25 mmol/L (22-30); CHLORIDE 105 mmol/L (98-107); CREATININE RESULT 0.58 mg/dL (0.52-1.25); GLUCOSE 131 mg/dL (75-110); POTASSIUM 4.7 mmol/L (3.6-5.0); SODIUM 137.4 mmol/L (137-145)
[2016-11-08] MEDS: DEXTROSE 5%-NORMAL SALINE 1,000 ML IV PRN ×2 (10:57→20:32)
[2016-11-08] MEDS: CEFTRIAXONE 1 GM/D5W RTU 1 GM/50 ML RTUPB IV SCH (10:57)
[2016-11-08] MEDS: DOCUSATE SODIUM 100 MG CAPSULE PO SCH ×2 (10:57→17:35)
[2016-11-08] MEDS: ENOXAPARIN SODIUM INJ 40 MG/0.4 ML DISP.SYRIN SUBCUT SCH (10:57)
--- NOTE | 2016-11-08 11:14 | PDOC CONSULTATION ---
Consultation Consult Date: 11/08/16 Attending physician:: YAYA MEREDITH History of Present Illness Admission Date/PCP: 11/07/16 22:26 History of Present Illness: 26-year-old [place] male 3 years status post laparoscopic Maura-en-Y gastric bypass procedure by Dr. Villar [facility], supposed exploratory surgery, repair of peptic ulcer with Jhonatan patch February 2016 emergency department complaining of shortness of breath. He was evaluated and found to have evidence of exacerbation of asthma. He has CT scan of the chest and abdomen which showed no evidence of acute pulmonary embolus. Abdominal scan with contrast showed postoperative changes, possible small bowel intussusception. Surgery was consulted. Patient denies nausea and vomiting. He has pain which sounds chronic. Last bowel movement loose. Past Medical History Cardiac Medical History: Reports: DVT - Possible history; has undergone vena caval filter implant., Hyperlipidema, Hypertension - Resolved after bariatric surgery Denies: Atrial Fibrillation, Congestive Heart Failure, Pulmonary Embolism Pulmonary Medical History: Reports: Asthma, Chronic Obstructive Pulmonary Disease (COPD), Pneumonia, Sleep Apnea - Resolved after bariatric surgery EENT Medical History: Denies: Eyes, Ears, Throat Neurological Medical History: Denies: Hemorrhagic CVA, Ischemic CVA, Seizures Endocrine Medical History: Reports: Diabetes Mellitus Type 2 - Resolved after bariatric surgery Denies: Diabetes Mellitus Type 1, Hyperthyroidism, Hypothyroidism Renal/ Medical History: Reports: None GI Medical History: Reports: Gastroesophageal Reflux Disease, Peptic Ulcer Disease - Surgical repair of perforated ulcer, February 2016, [facility] Denies: Cirrhosis, Hepatitis Musculoskeltal Medical History: Denies: Arthritis Skin Medical History: Reports: None Psychiatric Medical History: Reports: Attention Deficit Hyperactivity Disorder, Depression, General Anxiety Disorder, Tobacco Dependency Denies: Alcohol Dependency - Sixpack of beer per week, Substance Abuse Hematology: Reports: None Denies: Anemia Infectious Medical History: Denies: Clostridium Difficile, Hepatitis B, Hepatitis C, Methicillin- Resistant Staph Aureus Past Surgical History Past Surgical History: Reports: Gastric Bypass Surgery, Herniorrhaphy, Other - Vena caval filter implant Social History Lives with: Family Smoking Status: Current Every Day Smoker Frequency of Alcohol Use: Social Hx Recreational Drug Use: No Drugs: None Hx Prescription Drug Abuse: No - Advance Directive Resuscitation Status: Full Code Family History Family History: Arthritis, Hypertension, Malignancy, Other - Seizures Parental Family History Reviewed: Yes Children Family History Reviewed: Yes Sibling(s) Family History Reviewed.: Yes Medication/Allergy Home Medications: Folic Acid/Multivit-Min/Lutein [Centrum Silver Chewable Tablet] 2 tab.chew PO DAILY 11/08/16 Allergies/Adverse Reactions: iodine [Iodine] Allergy (Severe, Verified 11/07/16 10:37) oxycodone HCl [From Percocet] Allergy (Severe, Verified 11/07/16 22:28) fish derived [Fish derived] Allergy (Verified 11/07/16 10:37) Shellfish * [Shellfish] Allergy (Verified 11/07/16 10:37) ibuprofen [Ibuprofen] Adverse Reaction (Severe, Verified 11/07/16 10:37) bleeding Review of Systems Constitutional: PRESENT: as per HPI Eyes: PRESENT: as per HPI Ears: PRESENT: as per HPI Nose, Mouth, and Throat: PRESENT: as per HPI Breasts: PRESENT: as per HPI Respiratory: PRESENT: as per HPI Physical Exam Vital Signs: Temp Pulse Resp BP Pulse Ox 97.6 F 82 18 134/60 H 99 11/08/16 07:51 11/08/16 07:53 11/08/16 07:53 11/08/16 07:51 11/08/16 07:53 Intake & Output 11/07/16 11/08/16 11/09/16 06:59 06:59 06:59 Intake Total 880 Balance 880 Weight 107.6 kg General appearance: PRESENT: no acute distress Head exam: PRESENT: normocephalic Eye exam: PRESENT: EOMI Mouth exam: PRESENT: moist Respiratory exam: PRESENT: wheezes Cardiovascular exam: PRESENT: RRR GI/Abdominal exam: PRESENT: other - Multiple operative scars consistent with previous surgery; abdomen not distended no peritoneal signs no rigidity. Results Laboratory Results: 11/08/16 06:55 11/07/16 11/07/16 11/08/16 22:44 22:44 01:30 WBC 10.7 H RBC 4.84 Hgb 15.0 Hct 45.7 MCV 95 MCH 31.0 MCHC 32.8 RDW 14.2 H Plt Count 243 Seg Neutrophils % Not Reportable Lymphocytes % Not Reportable Monocytes % Not Reportable Eosinophils % Not Reportable Basophils % Not Reportable Absolute Neutrophils Not Reportable Absolute Lymphocytes Not Reportable Absolute Monocytes Not Reportable Absolute Eosinophils Not Reportable Absolute Basophils Not Reportable VBG pH 7.42 VBG pCO2 33.1 L VBG HCO3 21.2 VBG Base Excess -2.3 Sodium 140.0 Potassium 4.2 Chloride 107 Carbon Dioxide 21 L Anion Gap 12 BUN 8 Creatinine 0.60 Est GFR ( Amer) > 60 Est GFR (Non-Af Amer) > 60 Glucose 140 H Calcium 9.4 Magnesium 2.5 H Total Bilirubin 0.8 AST 26 ALT 33 Alkaline Phosphatase 50 Total Protein 7.7 Albumin 4.4 Lipase 28.5 11/08/16 11/08/16 06:55 06:55 WBC 9.5 RBC 4.68 Hgb 14.5 Hct 43.9 MCV 94 MCH 30.9 MCHC 33.0 RDW 14.2 H Plt Count 247 Seg Neutrophils % 93.9 H Lymphocytes % 5.2 L Monocytes % 0.8 L Eosinophils % 0.0 Basophils % 0.1 Absolute Neutrophils 9.0 H Absolute Lymphocytes 0.5 Absolute Monocytes 0.1 Absolute Eosinophils 0.0 Absolute Basophils 0.0 VBG pH VBG pCO2 VBG HCO3 VBG Base Excess Sodium 137.4 Potassium 4.7 Chloride 105 Carbon Dioxide 25 Anion Gap 7 BUN 7 Creatinine 0.58 Est GFR ( Amer) > 60 Est GFR (Non-Af Amer) > 60 Glucose 131 H Calcium 9.3 Magnesium Total Bilirubin AST ALT Alkaline Phosphatase Total Protein Albumin Lipase 11/07/16 11/08/16 22:44 06:55 Troponin I < 0.012 < 0.012 Impressions: Acute Abdomen Series 11/07/16 00:00 IMPRESSION: NO RADIOGRAPHIC EVIDENCE FOR ACUTE ABDOMINAL DISEASE. Abdomen/Pelvis CT 11/08/16 00:00 IMPRESSION: Enteroenteric intussusception in the midline upper abdomen. No CT evidence for small bowel obstruction. Cholelithiasis. IVC filter with the struts extending outside of the vessel lumen. Ground-glass opacity at the left lower lobe, may represent pneumonia or atelectasis. Chest X-Ray 11/08/16 00:00 IMPRESSION: No acute radiographic finding on lateral view of the chest. Assessment & Plan - Diagnosis (1) Asthma exacerbation Is this a current diagnosis for this admission?: YesPlan: 1. Appears to be patient's principal problem for admission. Treated with appropriate pulmonary medications. (2) Epigastric abdominal pain Is this a current diagnosis for this admission?: YesPlan: Allergy for patient's epigastric pain undetermined. Patient is a inconsistent historian. Apparently has had neuropathic abdominal pain for years gastric bypass procedure. Patient's physical exam findings, and radiographic findings carefully reviewed. I discussed the in of the abdomen with oral contrast with Dr. Batres. Graphic finding of small bowel intussusception is probably of no clinical significance as there is no evidence of proximal bowel dilatation. It appears the patient has had a Maura-en-Y gastric bypass on his gastric remnant as would be expected. Plan: 1. No indication for surgical intervention at this time. 2. Patient to follow-up with his surgical care team at [facility] as previously scheduled. 3. We will sign off for now; reconsult if needed.
[2016-11-08 11:25] LABS: HEMATOCRIT 42.2 % (37.9-51.0); HEMOGLOBIN 13.8 g/dL (13.5-17.0); HGB HCT DIFFERENCE -0.8; MEAN CORPUSCULAR HEMOGLOBIN 30.4 pg (27.0-33.4); MEAN CORPUSCULAR HGB CONC 32.7 g/dL (32.0-36.0); MEAN CORPUSCULAR VOLUME 93 fl (80-97); RED BLOOD COUNT 4.54 10^6/uL (4.35-5.55); WHITE BLOOD COUNT 11.3 10^3/uL (4.0-10.5)
[2016-11-08 11:37] LABS: BAND NEUTROPHILS % (MANUAL) 2 % (3-5); BASOPHILS % (MANUAL) 0 % (0-2); EOSINOPHILS % (MANUAL) 0 % (0-6); LYMPHOCYTES % (MANUAL) 1 % (13-45); RBC MORPHOLOGY COMMENT NORMO-CYTIC/CHROMIC; TOTAL CELLS COUNTED 100
--- NOTE | 2016-11-08 12:37 | XCELERA REPORT ---
[address] [address] Transthoracic Echocardiogram Report Name: JOHN GLORIA Age: 26 yrs Gender: Male : 1990 Patient Status: Inpatient Patient Location: 5\S\531\S\A Study Date: 11/08/2016 10:11 AM Height: 74 in Weight: 237 lb BSA: 2.3 m2 Procedure: A two-dimensional transthoracic echocardiogram with color flow and Doppler was performed. The study was technically adequate with some images being suboptimal in quality. Reason For Study: MURMUR / EKG CXHANGES/ WMA History: MURMUR / EKG CXHANGES/ WMA. Ordering Physician: AYLIN TINSLEY Performed By: Evelyn Meléndez Interpretation Summary The left ventricle is normal in size. There is normal left ventricular wall thickness. LV EF is > than 65% Left ventricular systolic function is normal. Doppler measurements suggest normal left ventricular diastolic function The left ventricular wall motion is normal. There is no thrombus. There is no ventricular septal defect visualized. The right ventricle is normal in size and function. The right atrium is normal. The left atrial size is normal. The interatrial septum is intact with no evidence for an atrial septal defect. There is no evidence of mitral valve prolapse. There is no vegetation seen on the mitral valve. There is no mitral valve stenosis. There is a trace amount of mitral regurgitation There is no aortic valve stenosis There is no LVOT obstruction. No aortic regurgitation is present. There is no tricuspid stenosis. There is a mild to moderate amount of tricuspid regurgitation No significant pulmonary hypertension.RVSP is 32 mm of Hg , with RA men of 5.(Upper normal limit of RVSP is 30 mm of Hg.). There is no pericardial effusion. MMode/2D Measurements \T\ Calculations RVDd: 2.9 cm LVIDd: 5.7 cmFS: 46.2 % Ao root diam: 3.8 cm IVSd: 0.99 cm LVIDs: 3.1 cmEDV(Teich): 162.2 ml LVPWd: 1.0 cmESV(Teich): 37.5 ml Ao root area: 11.2 cm2 EF(Teich): 76.9 % LA dimension: 3.6 cm LVOT diam: 2.6 cm LVOT area: 5.3 cm2 Doppler Measurements \T\ Calculations MV E max mayuri: MV P1/2t max mayuri: Ao V2 max: LV V1 max P.8 cm/sec 130.3 cm/sec 147.7 cm/sec 8.3 mmHg MV A max mayuri: MV P1/2t: 49.1 msec Ao max PG: LV V1 max: 82.9 cm/sec MVA(P1/2t): 4.5 cm2 8.7 mmHg 143.6 cm/sec MV E/A: 1.6 MV dec slope: FAN(V,D): 5.2 cm2 776.8 cm/sec2 PA V2 max: TR max mayuri: 96.7 cm/sec 256.9 cm/sec PA max PG: TR max P.4 mmHg 3.7 mmHg Left Ventricle The left ventricle is normal in size. There is normal left ventricular wall thickness. LV EF is > than 65%. Left ventricular systolic function is normal. Doppler measurements suggest normal left ventricular diastolic function. The left ventricular wall motion is normal. There is no thrombus. There is no ventricular septal defect visualized. Right Ventricle The right ventricle is normal in size and function. Atria The right atrium is normal. The left atrial size is normal. The interatrial septum is intact with no evidence for an atrial septal defect. Mitral Valve There is no evidence of mitral valve prolapse. There is no vegetation seen on the mitral valve. There is no mitral valve stenosis. There is a trace amount of mitral regurgitation. Aortic Valve There is no aortic valvular vegetation. There is no aortic valve stenosis. There is no LVOT obstruction. No aortic regurgitation is present. Tricuspid Valve There is no tricuspid stenosis. There is a mild to moderate amount of tricuspid regurgitation. No significant pulmonary hypertension.RVSP is 32 mm of Hg , with RA men of 5.(Upper normal limit of RVSP is 30 mm of Hg.). Pulmonic Valve There is no pulmonic valvular stenosis. There is no pulmonic valvular regurgitation. Great Vessels The aortic root is normal size. Effusions There is no pericardial effusion. : AYLIN TINSLEY > Aylin Tinsley
--- NOTE | 2016-11-08 13:59 | PDOC PROGRESS REPORT ---
Subjective Progress Note for:: 11/08/16 Subjective:: reason for visit: f/u abd pain, asthma exac, acute bronchitis hospital course: per other's notes "JOHN GLORIA is a 26 year old male with long-standing asthma, one half pack a day smoker, who presents to the emergency room for evaluation of above complaints. Describes a 2 day history of slowly progressive difficulty breathing, in terms of increased shortness of breath and wheezing, with shortness of breath particularly noticeable with much of any activity. Cough productive of brown sputum. Shaking chills, with feeling of being "hot." Positive nausea but no vomiting. No diarrhea or dysuria. Was actually seen in the emergency room earlier today for breathing difficulty but discharged home. Returned when his breathing difficulty worsened. Describes chronic epigastric pain since last February, when he was transferred to [facility], where he underwent open exploratory laparotomy with patch of a perforated ulcer. However, states the pain usually does not radiate to his back , which started earlier today. 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 his ecg has diffuse J point or ST seg borderline elevation of unclear significance but looks different than previous. case discussed with dr eisenberg who has elected to order echo to further evaluate. For me his chest pain is reproducible on exam more suggestive of costochondritis than cardiac origin. he continues to wheeze and feels "miserable" with generalized pain and malaise, feels feverish and has dry hacking cough but no n/v/d, rash, orthopnea, PND, swollen legs, pain in calves with walking, CONKLIN, dizziness. ROS: all systems reviewed, see above, remaining systems negative Physical Exam Vital Signs: Temp Pulse Resp BP Pulse Ox 98.4 F 77 18 130/63 H 99 11/08/16 11:37 11/08/16 11:37 11/08/16 11:37 11/08/16 11:37 11/08/16 11:37 Intake & Output 11/07/16 11/08/16 11/09/16 06:59 06:59 06:59 Intake Total 880 Balance 880 Weight 107.6 kg General appearance: PRESENT: mild distress, well-developed, well-nourished Head exam: PRESENT: atraumatic, normocephalic Eye exam: PRESENT: EOMI. ABSENT: conjunctival injection, scleral icterus Mouth exam: PRESENT: moist, neck supple Neck exam: ABSENT: carotid bruit, lymphadenopathy, meningismus, tenderness Respiratory exam: PRESENT: accessory muscle use - rapid shallow breathing due to chest wall pain with deep inspiration or cough, crackles, rhonchi, wheezes. ABSENT: prolonged expiratory phas, retraction Cardiovascular exam: PRESENT: RRR. ABSENT: systolic murmur, tachycardia Pulses: PRESENT: normal radial pulses, normal dorsalis pedis pul GI/Abdominal exam: PRESENT: normal bowel sounds, soft, tenderness - diffuse tender to palpation but seems to localize at proximal tip of his epigastric surgical scar Extremities exam: ABSENT: calf tenderness, pedal edema Musculoskeletal exam: PRESENT: ambulatory, full ROM Neurological exam: PRESENT: alert, awake, oriented to person, oriented to place , oriented to time, oriented to situation Psychiatric exam: PRESENT: appropriate affect, normal mood Skin exam: PRESENT: dry, warm Results Laboratory Results: 11/08/16 10:50 11/08/16 06:55 11/07/16 11/07/16 11/08/16 22:44 22:44 01:30 WBC 10.7 H RBC 4.84 Hgb 15.0 Hct 45.7 MCV 95 MCH 31.0 MCHC 32.8 RDW 14.2 H Plt Count 243 Seg Neutrophils % Not Reportable Lymphocytes % Not Reportable Monocytes % Not Reportable Eosinophils % Not Reportable Basophils % Not Reportable Absolute Neutrophils Not Reportable Absolute Lymphocytes Not Reportable Absolute Monocytes Not Reportable Absolute Eosinophils Not Reportable Absolute Basophils Not Reportable VBG pH 7.42 VBG pCO2 33.1 L VBG HCO3 21.2 VBG Base Excess -2.3 Sodium 140.0 Potassium 4.2 Chloride 107 Carbon Dioxide 21 L Anion Gap 12 BUN 8 Creatinine 0.60 Est GFR ( Amer) > 60 Est GFR (Non-Af Amer) > 60 Glucose 140 H Calcium 9.4 Magnesium 2.5 H Total Bilirubin 0.8 AST 26 ALT 33 Alkaline Phosphatase 50 Total Protein 7.7 Albumin 4.4 Lipase 28.5 11/08/16 11/08/16 11/08/16 06:55 06:55 10:50 WBC 9.5 11.3 H RBC 4.68 4.54 Hgb 14.5 13.8 Hct 43.9 42.2 MCV 94 93 MCH 30.9 30.4 MCHC 33.0 32.7 RDW 14.2 H 14.0 Plt Count 247 249 Seg Neutrophils % 93.9 H Not Reportable Lymphocytes % 5.2 L Not Reportable Monocytes % 0.8 L Not Reportable Eosinophils % 0.0 Not Reportable Basophils % 0.1 Not Reportable Absolute Neutrophils 9.0 H Not Reportable Absolute Lymphocytes 0.5 Not Reportable Absolute Monocytes 0.1 Not Reportable Absolute Eosinophils 0.0 Not Reportable Absolute Basophils 0.0 Not Reportable VBG pH VBG pCO2 VBG HCO3 VBG Base Excess Sodium 137.4 Potassium 4.7 Chloride 105 Carbon Dioxide 25 Anion Gap 7 BUN 7 Creatinine 0.58 Est GFR ( Amer) > 60 Est GFR (Non-Af Amer) > 60 Glucose 131 H Calcium 9.3 Magnesium Total Bilirubin AST ALT Alkaline Phosphatase Total Protein Albumin Lipase 11/07/16 11/08/16 22:44 06:55 Troponin I < 0.012 < 0.012 Impressions: Acute Abdomen Series 11/07/16 00:00 IMPRESSION: NO RADIOGRAPHIC EVIDENCE FOR ACUTE ABDOMINAL DISEASE. Abdomen/Pelvis CT 11/08/16 00:00 IMPRESSION: Enteroenteric intussusception in the midline upper abdomen. No CT evidence for small bowel obstruction. Cholelithiasis. IVC filter with the struts extending outside of the vessel lumen. Ground-glass opacity at the left lower lobe, may represent pneumonia or atelectasis. Chest X-Ray 11/08/16 00:00 IMPRESSION: No acute radiographic finding on lateral view of the chest. Assessment & Plan - Diagnosis (1) Community acquired pneumonia Is this a current diagnosis for this admission?: YesPlan: LLL based on findings on ct scan;; continue appropriate abx for CAP (2) Asthma exacerbation Is this a current diagnosis for this admission?: YesPlan: no improvement; continue aggressive pulmonary toilet; continue IV steroids and nebs. will likely require several days in hospital, slow to improve (3) Epigastric abdominal pain Is this a current diagnosis for this admission?: YesPlan: stable; seems to be acute on chronic neuropathic pain along his surgical scar (4) Tobacco dependency Is this a current diagnosis for this admission?: YesPlan: tobacco cessation counseling but he isn't interested at this time (5) Chest pain Qualifiers: Chest pain type: intercostal pain Qualified Code(s): R07.82 - Intercostal pain Is this a current diagnosis for this admission?: YesPlan: I believe this is costochondritis and should improve with steroids; will add toradol prn to see if this helps (6) Abnormal ECG Is this a current diagnosis for this admission?: YesPlan: 2 sets of cardiac enzymes and physical exam findings argue against acute myocardial ischemia; dr eisenberg consulted and awaiting echo report. To me he has more of a picture of acute viral illness and possible pericarditis, perhaps the echo will help sort this out. continue toradol and steroids (7) Acute hypoxemic respiratory failure Is this a current diagnosis for this admission?: YesPlan: 2/2 above; continue to wean O2 off as tolerated. - Time Time Spent with patient: 35 or more minutes Medications reviewed and adjusted accordingly: Yes Anticipated discharge: Home Within: within 72 hours
[2016-11-08] MEDS ORDERED: NORMAL SALINE 1000 ML 1,000 ML with POTASSIUM CHLORIDE 10 MEQ, MAGNESIUM SULFATE 8 MEQ,... IV SCH ×5 (18:00)
[2016-11-08] MEDS: KETOROLAC TROMETHAMINE INJ/PF 30 MG/1 ML SDV IV PRN (20:32)
[2016-11-08] MEDS: AZITHROMYCIN 500 MG in DEXTROSE 5%-WATER 250 ML IV SCH (21:48)
[2016-11-08] MEDS: GUAIFENESIN SYRP 200 MG/10 ML UDC PO PRN (21:50)
--- NOTE | 2016-11-08 23:18 | PDOC CONSULTATION ---
Consultation Consult Date: 11/08/16 Consult reason:: EKG Changes History of Present Illness Admission Date/PCP: 11/08/16 15:54 History of Present Illness: 26-year-old [place]ian male 3 years status post laparoscopic Maura-en-Y gastric bypass procedure by Dr. Villar [facility], supposed exploratory surgery, repair of peptic ulcer with Jhonatan patch February 2016 emergency department complaining of shortness of breath. He was evaluated and found to have evidence of exacerbation of asthma. He states that the shortness of breath with wheezing started about 2-3 days ago. There was some fever and chills. He has a cough which is productive of yellowish and greenish sputum. No hemoptysis. He is also been having sharp pains in the chest which lasts for a few seconds and recur throughout the day. The patient's are not associated with the exertion. The pains are when he takes a deep breath or coughs and also has many holds his chest in a certain position. Hence the chest pains are not cardiac. He also has been having epigastric pain along with this. He has had a CT scan of the chest and abdomen which showed no evidence of acute pulmonary embolus. Abdominal scan with contrast showed postoperative changes, possible small bowel intussusception. Surgery was consulted. Surgery does not feel that he needs surgery at this point. He denies any palpitations, PND or orthopnea. There is no dizziness or syncope. Patient denies nausea and vomiting. He has pain which sounds chronic. Last bowel movement loose. Past Medical History Cardiac Medical History: Reports: DVT - Possible history; has undergone vena caval filter implant., Hyperlipidema, Hypertension - Resolved after bariatric surgery, Other - He has no history of coronary artery disease, ND or anginal symptoms, and no symptoms of congestive heart failure or cardiac arrhythmia. He has no congenital heart disease. Denies: Atrial Fibrillation, Congestive Heart Failure, Pulmonary Embolism Pulmonary Medical History: Reports: Asthma, Chronic Obstructive Pulmonary Disease (COPD), Pneumonia, Sleep Apnea - Resolved after bariatric surgery EENT Medical History: Denies: Eyes, Ears, Throat Neurological Medical History: Reports: Other - He has no history of CVA or TIA, there is no headaches migraines or seizures. There is no gait imbalance Denies: Hemorrhagic CVA, Ischemic CVA, Seizures Endocrine Medical History: Reports: Diabetes Mellitus Type 2 - Resolved after bariatric surgery Denies: Diabetes Mellitus Type 1, Hyperthyroidism, Hypothyroidism Renal/ Medical History: Reports: None GI Medical History: Reports: Gastroesophageal Reflux Disease, Peptic Ulcer Disease - Surgical repair of perforated ulcer, February 2016, [facility] Denies: Cirrhosis, Hepatitis Musculoskeltal Medical History: Denies: Arthritis Skin Medical History: Reports: None Psychiatric Medical History: Reports: Attention Deficit Hyperactivity Disorder, Depression, General Anxiety Disorder, Tobacco Dependency Denies: Alcohol Dependency - Sixpack of beer per week, Substance Abuse Hematology: Reports: None Denies: Anemia Infectious Medical History: Denies: Clostridium Difficile, Hepatitis B, Hepatitis C, Methicillin- Resistant Staph Aureus Past Surgical History Past Surgical History: Reports: Gastric Bypass Surgery, Herniorrhaphy, Other - Vena caval filter implant. History of surgery for perforated ulcer. Social History Lives with: Family Smoking Status: Current Every Day Smoker Frequency of Alcohol Use: Social Hx Recreational Drug Use: No Drugs: None Hx Prescription Drug Abuse: No - Advance Directive Resuscitation Status: Full Code Surrogate healthcare decision maker:: His Mother. Family History Family History: Arthritis, CAD, Hypertension, Malignancy, Other - Seizures Medication/Allergy Home Medications: Folic Acid/Multivit-Min/Lutein [Centrum Silver Chewable Tablet] 2 tab.chew PO DAILY 11/08/16 Allergies/Adverse Reactions: iodine [Iodine] Allergy (Severe, Verified 11/07/16 10:37) oxycodone HCl [From Percocet] Allergy (Severe, Verified 11/07/16 22:28) fish derived [Fish derived] Allergy (Verified 11/07/16 10:37) Shellfish * [Shellfish] Allergy (Verified 11/07/16 10:37) ibuprofen [Ibuprofen] Adverse Reaction (Severe, Verified 11/07/16 10:37) bleeding Physical Exam Vital Signs: Temp Pulse Resp BP Pulse Ox 98.5 F 92 16 120/51 L 97 11/08/16 19:21 11/08/16 19:41 11/08/16 19:41 11/08/16 19:21 11/08/16 19:41 Intake & Output 11/07/16 11/08/16 11/09/16 06:59 06:59 06:59 Intake Total 1999 Balance 1999 Results EKG Comments: Sinus Rhythm.Eary normal ST repolarisation variant.No ND or Pericarditis. Impressions: Acute Abdomen Series 11/07/16 00:00 IMPRESSION: NO RADIOGRAPHIC EVIDENCE FOR ACUTE ABDOMINAL DISEASE. Abdomen/Pelvis CT 11/08/16 00:00 IMPRESSION: Enteroenteric intussusception in the midline upper abdomen. No CT evidence for small bowel obstruction. Cholelithiasis. IVC filter with the struts extending outside of the vessel lumen. Ground-glass opacity at the left lower lobe, may represent pneumonia or atelectasis. Chest X-Ray 11/08/16 00:00 IMPRESSION: No acute radiographic finding on lateral view of the chest. Assessment & Plan - Diagnosis (1) Asthma exacerbation Is this a current diagnosis for this admission?: Yes (2) Community acquired pneumonia Is this a current diagnosis for this admission?: Yes (3) Epigastric abdominal pain Is this a current diagnosis for this admission?: Yes (7) Tobacco dependency Is this a current diagnosis for this admission?: Yes
[2016-11-09] MEDS: METHYLPREDNISOLONE INJ 125 MG/2 ML SDV IV SCH ×3 (02:43→17:12)
[2016-11-09] MEDS: MORPHINE SULFATE 10 MG/ML INJ IV PRN ×4 (02:43→23:27)
[2016-11-09] MEDS: FAMOTIDINE INJ/PF 20 MG/2 ML SDV IV SCH ×2 (05:34→17:12)
[2016-11-09] MEDS: DEXTROSE 5%-NORMAL SALINE 1,000 ML IV PRN ×2 (05:39→23:27)
[2016-11-09] MEDS: KETOROLAC TROMETHAMINE INJ/PF 30 MG/1 ML SDV IV PRN (05:39)
[2016-11-09 07:05] LABS: MAGNESIUM 2.4 mg/dL (1.6-2.3); PHOSPHORUS 4.5 mg/dL (2.5-4.5)
[2016-11-09] MEDS: IPRATROPIUM/ALBUTEROL 0.5-2.5 MG/3 ML AMPUL NEB SCH ×3 (08:15→19:51)
[2016-11-09 09:06] LABS: HEMATOCRIT 42.3 % (37.9-51.0); HEMOGLOBIN 13.9 g/dL (13.5-17.0); HGB HCT DIFFERENCE -0.6; MEAN CORPUSCULAR HEMOGLOBIN 30.8 pg (27.0-33.4); MEAN CORPUSCULAR HGB CONC 32.8 g/dL (32.0-36.0); MEAN CORPUSCULAR VOLUME 94 fl (80-97); RED BLOOD COUNT 4.51 10^6/uL (4.35-5.55); RED CELL DISTRIBUTION WIDTH 14.1 % (11.5-14.0); WHITE BLOOD COUNT 13.9 10^3/uL (4.0-10.5)
[2016-11-09 09:14] LABS: ANION GAP 8 (5-19); BLOOD UREA NITROGEN 16 mg/dL (7-20); CALCIUM 9.6 mg/dL (8.4-10.2); CARBON DIOXIDE 24 mmol/L (22-30); CHLORIDE 105 mmol/L (98-107); CREATININE RESULT 0.75 mg/dL (0.52-1.25); GLUCOSE 124 mg/dL (75-110); SODIUM 137.4 mmol/L (137-145)
[2016-11-09 09:31] LABS: BASOPHILS % (MANUAL) 0 % (0-2); EOSINOPHILS % (MANUAL) 0 % (0-6); HYPOCHROMASIA SLIGHT; LYMPHOCYTES % (MANUAL) 4 % (13-45); OVALOCYTES 1+; POIKILOCYTOSIS 1+; POLYCHROMASIA SLIGHT; TOTAL CELLS COUNTED 100; TOXIC VACUOLATION PRESENT
[2016-11-09 09:32] LABS: POTASSIUM 5.7 mmol/L (3.6-5.0)
[2016-11-09] MEDS: CEFTRIAXONE 1 GM/D5W RTU 1 GM/50 ML RTUPB IV SCH (12:08)
[2016-11-09] MEDS: ENOXAPARIN SODIUM INJ 40 MG/0.4 ML DISP.SYRIN SUBCUT SCH (12:08)
[2016-11-09] MEDS: DOCUSATE SODIUM 100 MG CAPSULE PO SCH ×2 (12:08→17:13)
--- NOTE | 2016-11-09 15:11 | PDOC PROGRESS REPORT ---
Subjective Progress Note for:: 11/09/16 Physical Exam Vital Signs: Temp Pulse Resp BP Pulse Ox 98.0 F 106 H 17 120/65 93 11/09/16 12:08 11/09/16 14:13 11/09/16 14:13 11/09/16 12:08 11/09/16 12:08 Intake & Output 11/08/16 11/09/16 11/10/16 06:59 06:59 06:59 Intake Total 7009 Balance 7009 GENERAL: This is a well-developed well-nourished overweight male resting in bed currently in no acute distress. HEART: Regular rate and rhythm. No murmurs, rubs or gallops. LUNGS: Coarse breath sounds bilaterally scattered throughout. No expiratory wheeze. He is currently on oxygen. Nonlabored. ABDOMEN: Soft, tender to the slightest touch, nondistended. EXTREMETIES: No clubbing, cyanosis or 2 plus edema. 2+ peripheral pulses bilaterally. NEURO: Awake, alert and oriented 3. Cranial nerves II through XII are grossly intact. Results Laboratory Results: 11/09/16 05:54 11/09/16 13:05 11/09/16 11/09/16 11/09/16 05:54 05:54 05:54 WBC 13.9 H RBC 4.51 Hgb 13.9 Hct 42.3 MCV 94 MCH 30.8 MCHC 32.8 RDW 14.1 H Plt Count 241 Seg Neutrophils % Not Reportable Lymphocytes % Not Reportable Monocytes % Not Reportable Eosinophils % Not Reportable Basophils % Not Reportable Absolute Neutrophils Not Reportable Absolute Lymphocytes Not Reportable Absolute Monocytes Not Reportable Absolute Eosinophils Not Reportable Absolute Basophils Not Reportable Sodium 137.4 Potassium 5.7 H D Chloride 105 Carbon Dioxide 24 Anion Gap 8 BUN 16 Creatinine 0.75 Est GFR ( Amer) > 60 Est GFR (Non-Af Amer) > 60 Glucose 124 H Calcium 9.6 Phosphorus 4.5 Magnesium 2.4 H 11/09/16 13:05 WBC RBC Hgb Hct MCV MCH MCHC RDW Plt Count Seg Neutrophils % Lymphocytes % Monocytes % Eosinophils % Basophils % Absolute Neutrophils Absolute Lymphocytes Absolute Monocytes Absolute Eosinophils Absolute Basophils Sodium Potassium 5.3 H Chloride Carbon Dioxide Anion Gap BUN Creatinine Est GFR ( Amer) Est GFR (Non-Af Amer) Glucose Calcium Phosphorus Magnesium Impressions: Acute Abdomen Series 11/07/16 00:00 IMPRESSION: NO RADIOGRAPHIC EVIDENCE FOR ACUTE ABDOMINAL DISEASE. Abdomen/Pelvis CT 11/08/16 00:00 IMPRESSION: Enteroenteric intussusception in the midline upper abdomen. No CT evidence for small bowel obstruction. Cholelithiasis. IVC filter with the struts extending outside of the vessel lumen. Ground-glass opacity at the left lower lobe, may represent pneumonia or atelectasis. Chest X-Ray 11/08/16 00:00 IMPRESSION: No acute radiographic finding on lateral view of the chest. Assessment & Plan - Diagnosis (1) Acute hypoxemic respiratory failure Is this a current diagnosis for this admission?: YesPlan: Improved. Patient remains on oxygen. He is still dyspneic on exertion. Continue to wean as appropriate. (2) Asthma exacerbation Is this a current diagnosis for this admission?: YesPlan: Continue steroids, duo nebs and antibiotics for underlying pneumonia (3) Community acquired pneumonia Is this a current diagnosis for this admission?: YesPlan: Continue antibiotics for now. The patient is on Rocephin. And azithromycin. (4) Abdominal pain Plan: CT scan suggested intussusception. Surgery service was consulted and does not suspect intussusception. 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 - Time Time Spent with patient: 25-34 minutes - Inpatient Certification Medical Necessity: Significant Comorbidiites Make Outpatient Treatment Too Risky
[2016-11-09] MEDS: HYDROCODONE/ACETAMINOPHEN 10-325 MG TABLET PO PRN (19:40)
--- NOTE | 2016-11-09 22:26 | PDOC PROGRESS REPORT ---
Subjective Progress Note for:: 11/09/16 Subjective:: Patient is still c/o bilateral upper abdominal pain, radiated to back, no nausea or vomiting reported, no stools today, stools passed yesterday. The patient reports having had a large dinner tonight consisting of Hungarian food with vegetables and meat, well tolerated. He gives a hx of anxiety secondary to his asthma which is the primary reason for this admission. Physical Exam Vital Signs: Temp Pulse Resp BP Pulse Ox 99.8 F 70 18 177/58 H 98 11/09/16 20:00 11/09/16 20:00 11/09/16 20:00 11/09/16 20:00 11/09/16 20:00 Intake & Output 11/08/16 11/09/16 11/10/16 06:59 06:59 06:59 Intake Total 7009 1880 Output Total 5 Balance 7009 1875 Respiratory exam: PRESENT: wheezes - bilateral inspiratory and expiratory Cardiovascular exam: PRESENT: RRR GI/Abdominal exam: PRESENT: normal bowel sounds - no midiline ventral hernia noted on Valsalva; patient abdominal wall and midline exam is ; no peritoneal signs and or guarding/rebound appreciated, soft Results Laboratory Results: 11/09/16 05:54 11/09/16 13:05 11/09/16 11/09/16 11/09/16 05:54 05:54 05:54 WBC 13.9 H RBC 4.51 Hgb 13.9 Hct 42.3 MCV 94 MCH 30.8 MCHC 32.8 RDW 14.1 H Plt Count 241 Seg Neutrophils % Not Reportable Lymphocytes % Not Reportable Monocytes % Not Reportable Eosinophils % Not Reportable Basophils % Not Reportable Absolute Neutrophils Not Reportable Absolute Lymphocytes Not Reportable Absolute Monocytes Not Reportable Absolute Eosinophils Not Reportable Absolute Basophils Not Reportable Sodium 137.4 Potassium 5.7 H D Chloride 105 Carbon Dioxide 24 Anion Gap 8 BUN 16 Creatinine 0.75 Est GFR ( Amer) > 60 Est GFR (Non-Af Amer) > 60 Glucose 124 H Calcium 9.6 Phosphorus 4.5 Magnesium 2.4 H 11/09/16 13:05 WBC RBC Hgb Hct MCV MCH MCHC RDW Plt Count Seg Neutrophils % Lymphocytes % Monocytes % Eosinophils % Basophils % Absolute Neutrophils Absolute Lymphocytes Absolute Monocytes Absolute Eosinophils Absolute Basophils Sodium Potassium 5.3 H Chloride Carbon Dioxide Anion Gap BUN Creatinine Est GFR ( Amer) Est GFR (Non-Af Amer) Glucose Calcium Phosphorus Magnesium Impressions: Acute Abdomen Series 11/07/16 00:00 IMPRESSION: NO RADIOGRAPHIC EVIDENCE FOR ACUTE ABDOMINAL DISEASE. Abdomen/Pelvis CT 11/08/16 00:00 IMPRESSION: Enteroenteric intussusception in the midline upper abdomen. No CT evidence for small bowel obstruction. Cholelithiasis. IVC filter with the struts extending outside of the vessel lumen. Ground-glass opacity at the left lower lobe, may represent pneumonia or atelectasis. Chest X-Ray 11/08/16 00:00 IMPRESSION: No acute radiographic finding on lateral view of the chest. Assessment & Plan - Plan Summary Plan Summary: Assessment: Abdominal pain of unknown cause No obvious gastrointestinal symptoms reported by patient today Review of CT scan A/P done yesterday shows a GI tract with normal motility, post surgical (RYGP and repair of perforated gastric ulcer?), but no evidence of true intussesception: findings are most likely related to post-surgical changes rather than intussesception. Contrast flows well throughout the small bowel, no bowel dilatation or other pathology noted My opinion is that the patient does not have a gastrointestinal pathology, rather he seems to be more interested in the treatment of his pain, which does not have an explanation, rather than finding a cause of it. At this point, his behavior is suspicious for alter motives such as painkiller seeking behavior and this go above and beyond the purpose of my consultation. I am recommending not to add oral to IV pain medications, but to chose one or the other. Also, I would not to treat the pain if no cause is found: this only promotes a painkiller seeking behavior. If a cause of his pain is found and it appears to be surgical, an operation might be indicated, and it will be done. However, there is no such a cause at this time. I will sign off again, please call us if needed.
[2016-11-09] MEDS ORDERED: GABAPENTIN 100 MG CAPSULE PO ONE (23:00)
[2016-11-09] MEDS: AZITHROMYCIN 500 MG in DEXTROSE 5%-WATER 250 ML IV SCH (23:12)
[2016-11-10] MEDS: ALBUTEROL SULFATE 0.083% NEB 2.5 MG/3 ML AMPUL NEB PRN (02:02)
[2016-11-10] MEDS: METHYLPREDNISOLONE INJ 125 MG/2 ML SDV IV SCH ×3 (02:33→17:16)
[2016-11-10] MEDS: HYDROCODONE/ACETAMINOPHEN 10-325 MG TABLET PO PRN ×3 (02:34→17:17)
[2016-11-10 04:59] LABS: HEMATOCRIT 45.1 % (37.9-51.0); HEMOGLOBIN 14.7 g/dL (13.5-17.0); MEAN CORPUSCULAR HEMOGLOBIN 30.6 pg (27.0-33.4); MEAN CORPUSCULAR HGB CONC 32.6 g/dL (32.0-36.0); MEAN CORPUSCULAR VOLUME 94 fl (80-97); RED BLOOD COUNT 4.81 10^6/uL (4.35-5.55); RED CELL DISTRIBUTION WIDTH 14.4 % (11.5-14.0); WHITE BLOOD COUNT 14.7 10^3/uL (4.0-10.5)
[2016-11-10 05:14] LABS: ANION GAP 13 (5-19); BLOOD UREA NITROGEN 20 mg/dL (7-20); CALCIUM 9.5 mg/dL (8.4-10.2); CARBON DIOXIDE 21 mmol/L (22-30); CHLORIDE 106 mmol/L (98-107); CREATININE RESULT 0.74 mg/dL (0.52-1.25); GLUCOSE 117 mg/dL (75-110); MAGNESIUM 2.5 mg/dL (1.6-2.3); POTASSIUM 4.7 mmol/L (3.6-5.0); SODIUM 139.6 mmol/L (137-145)
[2016-11-10 05:31] LABS: BASOPHILS % (MANUAL) 0 % (0-2); EOSINOPHILS % (MANUAL) 0 % (0-6); LYMPHOCYTES % (MANUAL) 9 % (13-45); RBC MORPHOLOGY COMMENT NORMO-CYTIC/CHROMIC; TOTAL CELLS COUNTED 100
[2016-11-10] MEDS: GABAPENTIN 100 MG CAPSULE PO SCH ×3 (05:42→21:54)
[2016-11-10] MEDS: FAMOTIDINE INJ/PF 20 MG/2 ML SDV IV SCH ×2 (05:42→17:16)
[2016-11-10] MEDS: MORPHINE SULFATE 10 MG/ML INJ IV PRN ×3 (05:44→21:53)
[2016-11-10] MEDS: IPRATROPIUM/ALBUTEROL 0.5-2.5 MG/3 ML AMPUL NEB SCH ×3 (07:42→19:51)
[2016-11-10] MEDS: CEFTRIAXONE 1 GM/D5W RTU 1 GM/50 ML RTUPB IV SCH (11:04)
[2016-11-10] MEDS: DOCUSATE SODIUM 100 MG CAPSULE PO SCH ×2 (11:07→17:19)
[2016-11-10] MEDS: ENOXAPARIN SODIUM INJ 40 MG/0.4 ML DISP.SYRIN SUBCUT SCH (11:07)
--- NOTE | 2016-11-10 14:08 | PDOC PROGRESS REPORT ---
Subjective Progress Note for:: 11/10/16 Subjective:: This is a follow-up visit for asthma exacerbation and pneumonia. The patient states that he still feels short of breath. He is in bed without any oxygen. When I suggest that we check his pulse ox he told me right away that it will be normal. As it usually is. He states it is more so a feeling of shortness of breath. Physical Exam Vital Signs: Temp Pulse Resp BP Pulse Ox 97.9 F 72 16 133/83 H 99 11/10/16 11:53 11/10/16 13:10 11/10/16 13:10 11/10/16 11:53 11/10/16 13:10 Intake & Output 11/09/16 11/10/16 11/11/16 06:59 06:59 06:59 Intake Total 7009 3255 Output Total 5 Balance 7009 3250 GENERAL: This is a well-developed well-nourished overweight male resting in bed currently in no acute distress. HEART: Regular rate and rhythm. No murmurs, rubs or gallops. LUNGS: Coarse breath sounds bilaterally scattered throughout. No expiratory wheeze. He is currently on oxygen. Nonlabored. ABDOMEN: Soft, tender to the slightest touch, nondistended. EXTREMETIES: No clubbing, cyanosis or 2 plus edema. 2+ peripheral pulses bilaterally. NEURO: Awake, alert and oriented 3. Cranial nerves II through XII are grossly intact. Results Laboratory Results: 11/10/16 03:57 11/10/16 03:57 11/10/16 11/10/16 03:57 03:57 WBC 14.7 H RBC 4.81 Hgb 14.7 Hct 45.1 MCV 94 MCH 30.6 MCHC 32.6 RDW 14.4 H Plt Count 258 Seg Neutrophils % Not Reportable Lymphocytes % Not Reportable Monocytes % Not Reportable Eosinophils % Not Reportable Basophils % Not Reportable Absolute Neutrophils Not Reportable Absolute Lymphocytes Not Reportable Absolute Monocytes Not Reportable Absolute Eosinophils Not Reportable Absolute Basophils Not Reportable Sodium 139.6 Potassium 4.7 Chloride 106 Carbon Dioxide 21 L Anion Gap 13 BUN 20 Creatinine 0.74 Est GFR ( Amer) > 60 Est GFR (Non-Af Amer) > 60 Glucose 117 H Calcium 9.5 Magnesium 2.5 H Impressions: Acute Abdomen Series 11/07/16 00:00 IMPRESSION: NO RADIOGRAPHIC EVIDENCE FOR ACUTE ABDOMINAL DISEASE. Abdomen/Pelvis CT 11/08/16 00:00 IMPRESSION: Enteroenteric intussusception in the midline upper abdomen. No CT evidence for small bowel obstruction. Cholelithiasis. IVC filter with the struts extending outside of the vessel lumen. Ground-glass opacity at the left lower lobe, may represent pneumonia or atelectasis. Chest X-Ray 11/08/16 00:00 IMPRESSION: No acute radiographic finding on lateral view of the chest. Assessment & Plan - Diagnosis (1) Acute hypoxemic respiratory failure Is this a current diagnosis for this admission?: YesPlan: Improved. Patient remains on oxygen. He is still dyspneic on exertion. Continue to wean as appropriate. (2) Asthma exacerbation Is this a current diagnosis for this admission?: YesPlan: Continue steroids, duo nebs and antibiotics for underlying pneumonia. Will consult pulmonary service for any edited by patient. Still reports quite dyspneic on exertion. (3) Community acquired pneumonia Is this a current diagnosis for this admission?: YesPlan: Continue antibiotics for now. The patient is on Rocephin. And azithromycin. (4) Abdominal pain Plan: CT scan suggested intussusception. Surgery service was consulted and does not suspect intussusception. 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 They were we called back last night for continued pain and again they do not feel that this is intussusception. Patient's gabapentin was restarted. after compartment with the pharmacy yesterday it was noted that he has not refilled his medication since August. Wean off morphine. This is been changed to every 6. Of note. The patient states that he has been on Dilaudid as an outpatient is not clear to me how long ago this was. We did check with pharmacy and the patient has not had a prescription for Dilaudid at his chosen pharmacy. - Time Time Spent with patient: 15-24 minutes - Inpatient Certification Medical Necessity: Need Close Monitoring Due to Risk of Patient Decompensation
[2016-11-10] MEDS: DEXTROSE 5%-NORMAL SALINE 1,000 ML IV PRN (17:20)
[2016-11-10] MEDS: PROMETHAZINE HCL 25 MG TABLET PO PRN (19:51)
[2016-11-10] MEDS: GUAIFENESIN SYRP 200 MG/10 ML UDC PO PRN (21:54)
[2016-11-10] MEDS: AZITHROMYCIN 500 MG in DEXTROSE 5%-WATER 250 ML IV SCH (21:55)
[2016-11-11] MEDS: HYDROCODONE/ACETAMINOPHEN 10-325 MG TABLET PO PRN ×4 (00:33→22:40)
[2016-11-11] MEDS: METHYLPREDNISOLONE INJ 125 MG/2 ML SDV IV SCH (01:45)
[2016-11-11] MEDS: FAMOTIDINE INJ/PF 20 MG/2 ML SDV IV SCH (06:21)
[2016-11-11] MEDS: GABAPENTIN 100 MG CAPSULE PO SCH (06:21)
[2016-11-11] MEDS: MORPHINE SULFATE 10 MG/ML INJ IV PRN ×2 (07:53→16:29)
[2016-11-11] MEDS: IPRATROPIUM/ALBUTEROL 0.5-2.5 MG/3 ML AMPUL NEB SCH (08:00)
[2016-11-11] MEDS: CEFTRIAXONE 1 GM/D5W RTU 1 GM/50 ML RTUPB IV SCH (09:24)
[2016-11-11] MEDS: ENOXAPARIN SODIUM INJ 40 MG/0.4 ML DISP.SYRIN SUBCUT SCH (09:26)
[2016-11-11] MEDS: DOCUSATE SODIUM 100 MG CAPSULE PO SCH ×2 (09:29→17:29)
[2016-11-11] MEDS: DEXTROSE 5%-NORMAL SALINE 1,000 ML IV PRN (09:31)
[2016-11-11] MEDS ORDERED: METHYLPREDNISOLONE INJ 40 MG/1 ML SDV IV SCH (10:00)
--- NOTE | 2016-11-11 13:11 | PDOC PROGRESS REPORT ---
Subjective Progress Note for:: 11/11/16 Subjective:: This is a follow-up visit for asthma exacerbation and pneumonia. He denies any chest pain or worsening shortness of breath. He is up and ambulating around the room without his oxygen. His case was reviewed with Dr. Bravo earlier today Physical Exam Vital Signs: Temp Pulse Resp BP Pulse Ox 98.4 F 61 20 139/77 H 97 11/11/16 11:49 11/11/16 11:49 11/11/16 11:49 11/11/16 11:49 11/11/16 11:49 Intake & Output 11/10/16 11/11/16 11/12/16 06:59 06:59 06:59 Intake Total 3255 5505 Output Total 5 Balance 3250 5505 GENERAL: This is a well-developed well-nourished overweight male resting in bed currently in no acute distress. HEART: Regular rate and rhythm. No murmurs, rubs or gallops. LUNGS: Coarse breath sounds bilaterally scattered throughout. No expiratory wheeze. He is currently on oxygen. Nonlabored. ABDOMEN: Soft, tender to the slightest touch, nondistended. EXTREMETIES: No clubbing, cyanosis or 2 plus edema. 2+ peripheral pulses bilaterally. NEURO: Awake, alert and oriented 3. Cranial nerves II through XII are grossly intact. Results Laboratory Results: 11/10/16 03:57 11/10/16 03:57 Impressions: Acute Abdomen Series 11/07/16 00:00 IMPRESSION: NO RADIOGRAPHIC EVIDENCE FOR ACUTE ABDOMINAL DISEASE. Abdomen/Pelvis CT 11/08/16 00:00 IMPRESSION: Enteroenteric intussusception in the midline upper abdomen. No CT evidence for small bowel obstruction. Cholelithiasis. IVC filter with the struts extending outside of the vessel lumen. Ground-glass opacity at the left lower lobe, may represent pneumonia or atelectasis. Chest X-Ray 11/08/16 00:00 IMPRESSION: No acute radiographic finding on lateral view of the chest. Assessment & Plan - Diagnosis (1) Acute hypoxemic respiratory failure Is this a current diagnosis for this admission?: YesPlan: Improved. Patient remains on oxygen. He is still dyspneic on exertion. Continue to wean as appropriate. (2) Asthma exacerbation Is this a current diagnosis for this admission?: YesPlan: Continue steroids, duo nebs and antibiotics for underlying pneumonia. Will consult pulmonary service for any edited by patient. Still reports quite dyspneic on exertion. (3) Community acquired pneumonia Is this a current diagnosis for this admission?: YesPlan: Continue antibiotics for now. The patient is on Rocephin. And azithromycin. (4) Abdominal pain Plan: CT scan suggested intussusception. Surgery service was consulted and does not suspect intussusception. 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 They were we called back last night for continued pain and again they do not feel that this is intussusception. Patient's gabapentin was restarted. after compartment with the pharmacy yesterday it was noted that he has not refilled his medication since August. Wean off morphine. This is been changed to every 6. Of note. The patient states that he has been on Dilaudid as an outpatient is not clear to me how long ago this was. We did check with pharmacy and the patient has not had a prescription for Dilaudid at his chosen pharmacy. - Time Time Spent with patient: 15-24 minutes - Inpatient Certification Medical Necessity: Need Close Monitoring Due to Risk of Patient Decompensation
[2016-11-11] MEDS ORDERED: TIOTROPIUM BROMIDE DPI 5 CAP/KIT (18 MCG/CAP) IH ONE (14:00)
[2016-11-11] MEDS ORDERED: BUDESONIDE/FORMOTEROL 160-4.5 MCG 60 PUFF/6 GM MDI IH ONE (14:00)
[2016-11-11] MEDS: GABAPENTIN 300 MG CAPSULE PO SCH ×2 (14:01→21:21)
[2016-11-11] MEDS: ALBUTEROL SULFATE 0.083% NEB 2.5 MG/3 ML AMPUL NEB PRN ×3 (14:25→23:48)
[2016-11-11] MEDS: FAMOTIDINE 20 MG TABLET PO SCH (17:30)
[2016-11-11] MEDS: METHYLPREDNISOLONE INJ 40 MG/1 ML SDV IV SCH (17:30)
[2016-11-11] MEDS: MONTELUKAST SODIUM 10 MG TABLET PO SCH (21:21)
[2016-11-11] MEDS: BUDESONIDE/FORMOTEROL 160-4.5 MCG 60 PUFF/6 GM MDI IH SCH (21:24)
[2016-11-12] MEDS: MORPHINE SULFATE 10 MG/ML INJ IV PRN ×3 (01:25→22:04)
[2016-11-12] MEDS: GABAPENTIN 300 MG CAPSULE PO SCH ×3 (05:30→21:49)
[2016-11-12] MEDS: FAMOTIDINE 20 MG TABLET PO SCH ×2 (05:31→17:31)
[2016-11-12] MEDS: HYDROCODONE/ACETAMINOPHEN 10-325 MG TABLET PO PRN ×3 (05:31→20:05)
[2016-11-12] MEDS: METHYLPREDNISOLONE INJ 40 MG/1 ML SDV IV SCH ×2 (05:31→17:31)
[2016-11-12 06:55] LABS: ABSOLUTE LYMPHOCYTES (AUTO) 1.8 10^3/uL (0.5-4.7); ABSOLUTE MONOCYTES (AUTO) 1.2 10^3/uL (0.1-1.4); ABSOLUTE NEUT (AUTO) 10.1 10^3/uL (1.7-8.2); BASOPHILS % (AUTO) 0.1 % (0-2); HEMATOCRIT 48.7 % (37.9-51.0); HEMOGLOBIN 15.8 g/dL (13.5-17.0); HGB HCT DIFFERENCE -1.3; LYMPHOCYTES % (AUTO) 13.9 % (13-45); MEAN CORPUSCULAR HEMOGLOBIN 30.6 pg (27.0-33.4); MEAN CORPUSCULAR HGB CONC 32.5 g/dL (32.0-36.0); MEAN CORPUSCULAR VOLUME 94 fl (80-97); RED BLOOD COUNT 5.17 10^6/uL (4.35-5.55); RED CELL DISTRIBUTION WIDTH 13.9 % (11.5-14.0); WHITE BLOOD COUNT 13.1 10^3/uL (4.0-10.5)
[2016-11-12 07:01] LABS: ANION GAP 13 (5-19); BLOOD UREA NITROGEN 19 mg/dL (7-20); CALCIUM 9.7 mg/dL (8.4-10.2); CARBON DIOXIDE 26 mmol/L (22-30); CHLORIDE 100 mmol/L (98-107); CREATININE RESULT 0.68 mg/dL (0.52-1.25); GLUCOSE 97 mg/dL (75-110); MAGNESIUM 2.4 mg/dL (1.6-2.3); POTASSIUM 4.4 mmol/L (3.6-5.0); SODIUM 138.8 mmol/L (137-145)
--- NOTE | 2016-11-12 08:28 | ST Inp Modified Barium Swallow ---
Medical Diagnosis - Medical Diagnoses Medical Diagnosis Description & ICD-10 Code(s): asthma, gerd trigger or aspiration - ICD-10 Tx Diagnosis Coding (1) Dysphagia, unspecified ICD-10 Code(s): R13.10 - DYSPHAGIA, UNSPECIFIED ST [place] [facility] [place]: 11/12/16 Date of Onset: 11/07/16 - History History Obtained From: Patient - per EMR -: Medical - per EMR; breathing difficulty, asthma exacerbation, acute hypoxic respiratory failure, PNA, abdominal pain. chest xrays show WNL. PMHx: asthma, smoker, DVT, vena cava filter implant, HLD, HTN, COPD, diabetes, anxiety. Per pt ; pt states coughing and choking on solids and liquids, reports "9 PNAs", states globus sensation in lower neck and mid chest with PO intake. Pt reports has modified diet due to gastric bypass. Medications: Medications Reviewed Allergies: Refer to medical record - Subjective Current Nutritional Means: PO Current PO Diet: Regular Current Symptoms: Coughing, c/o Globus sensation - lower neck/upper chest, mid chest Pain: 0/5 - Objective Assessment: Upright, Left Lateral - Food Trials Food Trials Used: Thin liquids, Pureed, Regular The Patient: Was Able to Self Feed - Assessment Labial Function: Within Normal Limits Lingual Function: Within Normal Limits Mandibular Function: Within Normal Limits Dentition: Full Velo-Pharyngeal Function: Unremarkable Laryngeal Function: Volitional Cough, Volitional Swallow - Pharyngeal Stage Initiation of Pharyngeal Stage: Normal Decreased Laryngeal Elevation: No Reduced Velo-Pharyngeal Closure: no Reduced Pressure Generation: No Reduced Tongue Base Retraction: No Pre-Swallowing Pooling in Valleculae: None Pre-Swallowing Pooling in Pyriforms: None Reduced Thyro-Hyiod Approximation: No Reduced Epiglottic Excursion: No Reduced Pharyngeal Peristalsis: No Post Swallow Residuals in Valleculae: None Post Swallow Residuals in Pyriforms: None - Impression/Summary Laryngeal Penetration: No Tracheal Aspiration: no Patient Presents With: Normal swallow at eval - safe and effective swallow observed during study Risk of Aspiration: Minimal - Recommendations NPO: no Solid Diet Recommendations: Regular Liquid Diet Recommendations: Thin Strict Aspitarion Precautions: No Dysphagia Therapy with PORTFOLIO ADMINISTRATOR: No Supervision: Independent Other Recommendations: 1) DIET: recommend continued current diet. SUMMARY: Pt presents with a safe and effective oral and pharyngeal swallow. No penetration or aspiration observed. No radiographic findings of oral or pharyngeal residuals observed. ST to sign off at this time, please re-consult PRN. - Time Total Time: 20 Total Timed Minutes: 0
[2016-11-12] MEDS: DOCUSATE SODIUM 100 MG CAPSULE PO SCH ×2 (09:46→17:27)
[2016-11-12] MEDS: TIOTROPIUM BROMIDE DPI 5 CAP/KIT (18 MCG/CAP) IH SCH (10:04)
[2016-11-12] MEDS: LEVOFLOXACIN 750 MG TABLET PO SCH (10:04)
[2016-11-12] MEDS: ENOXAPARIN SODIUM INJ 40 MG/0.4 ML DISP.SYRIN SUBCUT SCH (10:05)
[2016-11-12] MEDS: BUDESONIDE/FORMOTEROL 160-4.5 MCG 60 PUFF/6 GM MDI IH SCH ×2 (10:05→21:49)
--- NOTE | 2016-11-12 16:49 | RADIOLOGY REPORT (SQ) ---
EXAM DESCRIPTION: TAE SWALLOW COMPLETED DATE/TIME: 11/12/2016 8:16 am REASON FOR STUDY: asthma; ?gerd trigger or aspiration COMPARISON: None. TECHNIQUE: Videofluoroscopic swallowing examination was performed in conjunction with speech patholo gy. Videofluoroscopic imaging was obtained and reviewed and these are the findings: RADIATION DOSE: 58 seconds of fluoroscopy was used. 1 images saved to PACS. LIMITATIONS: None FINDINGS: The patient was brought into the fluoro room and placed upright on a modified barium swall ow chair. The patient was then given multiple consistencies mixed with barium to swallow under live fluoroscopic video guidance. According to the Speech Pathologist there was no penetration or aspirat ion. IMPRESSION: NO EVIDENCE OF PENETRATION OR ASPIRATION.PLEASE SEE SPEECH PATHOLOGIST REPORT FOR OTHER FINDINGS AND RECOMMENDATIONS. COMMENT: Quality ID [id number]: Final reports for procedures using fluoroscopy that document radiation exp osure indices, or exposure time and number of fluorographic images (if radiation exposure indices are not available) TECHNICAL DOCUMENTATION: JOB ID: [id number] [employer]- All Rights Reserved
[2016-11-12] MEDS: MONTELUKAST SODIUM 10 MG TABLET PO SCH (21:49)
[2016-11-12] MEDS: DEXTROSE 5%-NORMAL SALINE 1,000 ML IV PRN (21:54)
[2016-11-13] MEDS: HYDROCODONE/ACETAMINOPHEN 10-325 MG TABLET PO PRN ×2 (03:14→09:53)
[2016-11-13] MEDS: FAMOTIDINE 20 MG TABLET PO SCH (06:00)
[2016-11-13] MEDS: MORPHINE SULFATE 10 MG/ML INJ IV PRN (06:00)
[2016-11-13] MEDS: METHYLPREDNISOLONE INJ 40 MG/1 ML SDV IV SCH (06:00)
[2016-11-13] MEDS: GABAPENTIN 300 MG CAPSULE PO SCH ×2 (06:00→14:18)
--- NOTE | 2016-11-13 08:13 | PDOC PROGRESS REPORT ---
Subjective Progress Note for:: 11/12/16 Subjective:: This is a follow-up visit for asthma exacerbation and pneumonia. He denies any chest pain or worsening shortness of breath. At the mention of going home today the patient insists that he feels very short of breath despite his oxygen sat being normal. Physical Exam Vital Signs: Temp Pulse Resp BP Pulse Ox 98.1 F 69 20 103/76 100 11/12/16 11:44 11/12/16 14:00 11/12/16 11:44 11/12/16 11:44 11/12/16 11:44 Intake & Output 11/11/16 11/12/16 11/13/16 06:59 06:59 06:59 Intake Total 5505 3750 Balance 5505 3750 Weight 107 kg GENERAL: This is a well-developed well-nourished overweight male resting in bed currently in no acute distress. HEART: Regular rate and rhythm. No murmurs, rubs or gallops. LUNGS: Coarse breath sounds bilaterally. No expiratory wheeze. He is currently on oxygen. Nonlabored. ABDOMEN: Soft, tender to the slightest touch, nondistended. EXTREMETIES: No clubbing, cyanosis or 2 plus edema. 2+ peripheral pulses bilaterally. NEURO: Awake, alert and oriented 3. Cranial nerves II through XII are grossly intact. Results Laboratory Results: 11/12/16 06:06 11/12/16 06:06 11/12/16 11/12/16 06:06 06:06 WBC 13.1 H RBC 5.17 Hgb 15.8 Hct 48.7 MCV 94 MCH 30.6 MCHC 32.5 RDW 13.9 Plt Count 263 Seg Neutrophils % 77.0 Lymphocytes % 13.9 Monocytes % 9.0 Eosinophils % 0.0 Basophils % 0.1 Absolute Neutrophils 10.1 H Absolute Lymphocytes 1.8 Absolute Monocytes 1.2 Absolute Eosinophils 0.0 Absolute Basophils 0.0 Sodium 138.8 Potassium 4.4 Chloride 100 Carbon Dioxide 26 Anion Gap 13 BUN 19 Creatinine 0.68 Est GFR ( Amer) > 60 Est GFR (Non-Af Amer) > 60 Glucose 97 Calcium 9.7 Magnesium 2.4 H Impressions: Acute Abdomen Series 11/07/16 00:00 IMPRESSION: NO RADIOGRAPHIC EVIDENCE FOR ACUTE ABDOMINAL DISEASE. Abdomen/Pelvis CT 11/08/16 00:00 IMPRESSION: Enteroenteric intussusception in the midline upper abdomen. No CT evidence for small bowel obstruction. Cholelithiasis. IVC filter with the struts extending outside of the vessel lumen. Ground-glass opacity at the left lower lobe, may represent pneumonia or atelectasis. Chest X-Ray 11/08/16 00:00 IMPRESSION: No acute radiographic finding on lateral view of the chest. Assessment & Plan - Diagnosis (1) Acute hypoxemic respiratory failure Is this a current diagnosis for this admission?: YesPlan: Improved. Patient remains on oxygen. Continue to wean as appropriate. (2) Asthma exacerbation Is this a current diagnosis for this admission?: YesPlan: Continue steroids, duo nebs, various inhalers and antibiotics for underlying pneumonia. I will contact Dr. Bravo for his opinion about discharge later today. at this point patient is stable (3) Community acquired pneumonia Is this a current diagnosis for this admission?: YesPlan: Change to p.o. antibiotic (4) Abdominal pain Plan: CT scan suggested intussusception. Surgery service was consulted and does not suspect intussusception. 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 They were we called back for continued pain and again they do not feel that this is intussusception. Patient's gabapentin was restarted. Wean off morphine. This is been changed to every 12. - Time Time Spent with patient: 15-24 minutes - Inpatient Certification Medical Necessity: Need Close Monitoring Due to Risk of Patient Decompensation
[2016-11-13] MEDS ORDERED: MORPHINE SULFATE 10 MG/ML INJ IV PRN (08:14)
[2016-11-13] MEDS: DOCUSATE SODIUM 100 MG CAPSULE PO SCH (09:53)
[2016-11-13] MEDS: LEVOFLOXACIN 750 MG TABLET PO SCH (09:53)
[2016-11-13] MEDS: BUDESONIDE/FORMOTEROL 160-4.5 MCG 60 PUFF/6 GM MDI IH SCH (09:53)
[2016-11-13] MEDS: TIOTROPIUM BROMIDE DPI 5 CAP/KIT (18 MCG/CAP) IH SCH (09:54)
[2016-11-13] MEDS: ENOXAPARIN SODIUM INJ 40 MG/0.4 ML DISP.SYRIN SUBCUT SCH (09:54)
[2016-11-13] MEDS: ACETAMINOPHEN 325 MG TABLET PO PRN (11:22)
[2016-11-13 12:03] VITALS: BP 132/77
--- NOTE | 2016-11-13 13:43 | PDOC DISCHARGE SUMMARY ---
General - Admit/Disc Date/PCP Admission Date/Primary Care Provider: 11/08/16 15:54 Discharge Date: 11/13/16 - Discharge Diagnosis (1) Acute hypoxemic respiratory failure Is this a current diagnosis for this admission?: YesSummary: Resolved (2) Asthma exacerbation Is this a current diagnosis for this admission?: YesSummary: Continue inhalers to include inhaler, Symbicort, albuterol, Singulair. Prednisone taper will be prescribed. (3) Community acquired pneumonia Is this a current diagnosis for this admission?: YesSummary: Status post 7 days of Levaquin. Continue another 3 days for total of 10. Follow-up with PCP (4) Abdominal pain Summary: Neuropathic pain. Continue gabapentin. Titrate up as an outpatient. - Additional Information Resuscitation Status: Full Code Home Medications: Folic Acid/Multivit-Min/Lutein [Centrum Silver Chewable Tablet] 2 tab.chew PO DAILY 11/08/16 Budesonide/Formoterol Fumarate [Symbicort HFA 160-4.5 mcg Inhaler 6 gm] 2 puff IH Q12 #1 inhaler 11/12/16 Gabapentin [Neurontin 300 mg Capsule] 300 mg PO Q8 #90 capsule 11/12/16 Montelukast Sodium [Singulair 10 mg Tablet] 10 mg PO QHS #1 tablet 11/12/16 Tiotropium [place] [Spiriva Handihaler 5 Cap/Kit (18 Mcg/Cap)] 1 cap IH DAILY # 1 kit 11/12/16 Hydrocodone/Acetaminophen [[place] 10-325 mg Tablet] 1 tab PO Q6HP PRN #12 tablet 11/13/16 Levofloxacin [Levaquin 750 mg Tablet] 750 mg PO DAILY #3 tablet 11/13/16 Prednisone 20 mg PO ASDIR #15 tablet 11/13/16 History of Present Illness History of Present Illness: HPI as per admitting physician: History of Present Illness Admission Date/PCP: 11/07/16 21:17 [facility] Patient complains of: Difficulty breathing, epigastric pain History of Present Illness: JOHN GLORIA is a 26 year old male with long-standing asthma, one half pack a day smoker, who presents to the emergency room for evaluation of above complaints. Patient has been discussed with emergency room nurse practitioner who evaluated the patient. Describes a 2 day history of slowly progressive difficulty breathing, in terms of increased shortness of breath and wheezing, with shortness of breath particularly noticeable with much of any activity. Cough productive of brown sputum. Shaking chills, with feeling of being "hot." Positive nausea but no vomiting. No diarrhea or dysuria. Was actually seen in the emergency room earlier today for breathing difficulty but discharged home. Returned when his breathing difficulty worsened. Describes chronic epigastric pain since last February, when he was transferred to [facility], where he underwent open exploratory laparotomy with patch of a perforated ulcer. However, states the pain usually does not radiate to his back, which started earlier today. Status post gastric bypass in 2012 with subsequent 350 pound weight loss. Laboratory results are listed in [facility] and are reviewed. X-ray summary results from earlier today reviewed.. EKG pending and compared to a tracing from earlier today. Hospital Course Hospital Course: Patient was admitted to inpatient status initially and placed on 107 mg of Solu- Medrol every 8 hours, Levaquin, and oxygen. The patient made slow improvement. Albuterol treatments he did improve. At the time I took over service I decreased his Solu-Medrol down to 40 every 8 and continue to wean from there. The patient also was changed to Levaquin p.o. and able to be weaned off of oxygen. She still complains of feeling short of breath despite normal oxygen saturations. Pulmonary consult was placed and the patient was seen by Dr. Bravo who recommended continued maintenance treatment with addition of Singulair, Symbicort. He also recommended a modified barium swallow which was negative. Overall the patient seemed to do much better. He was able to ambulate around room. At discharge he still felt his chest was tight. While he was here he also complained of abdominal pain. He has a known history of gastric bypass. CT scan showed possible intussusception. He was evaluated by the surgical service who felt that the patient did not have intussusception and that this was largely neuropathic. The patient continued to complain of pain and 2 days later the surgery service was called back. There opinion did not change. However, they did express concerns for pain seeking behavior. While the patient was here I shared these concerns and began to wean him off of the morphine that he was receiving. The patient did make mention to the nurse that he had questions about whether or not alcohol would show up in any lab tests if he decided to have some vodka in his room. The patient usually sees his surgeon out in [place] and has his pain medications refilled there. Patient is stable and ready for discharge. He will need a follow-up with an outpatient primary care physician. Dr. Bravo has agreed to be his global implementation manager. Physical Exam Vital Signs: Temp Pulse Resp BP Pulse Ox 98.3 F 85 20 132/77 H 99 11/13/16 12:00 11/13/16 12:00 11/13/16 12:00 11/13/16 12:00 11/13/16 12:00 Intake & Output 11/12/16 11/13/16 11/14/16 06:59 06:59 06:59 Intake Total 3750 4125 Balance 3750 4125 Weight 107 kg GENERAL: This is a well-developed well-nourished overweight male walking around his room preparing to take a shower because he is bored and currently in no acute distress. HEART: Regular rate and rhythm. No murmurs, rubs or gallops. LUNGS: Improved breath sounds bilaterally. Coarseness heard at the right base. No expiratory wheeze. He is currently on oxygen. Nonlabored. ABDOMEN: Nondistended EXTREMETIES: No clubbing, cyanosis or 2 plus edema. 2+ peripheral pulses bilaterally. NEURO: Awake, alert and oriented 3. Cranial nerves II through XII are grossly intact. Results Laboratory Results: 11/12/16 06:06 11/12/16 06:06 Impressions: Acute Abdomen Series 11/07/16 00:00 IMPRESSION: NO RADIOGRAPHIC EVIDENCE FOR ACUTE ABDOMINAL DISEASE. Abdomen/Pelvis CT 11/08/16 00:00 IMPRESSION: Enteroenteric intussusception in the midline upper abdomen. No CT evidence for small bowel obstruction. Cholelithiasis. IVC filter with the struts extending outside of the vessel lumen. Ground-glass opacity at the left lower lobe, may represent pneumonia or atelectasis. Chest X-Ray 11/08/16 00:00 IMPRESSION: No acute radiographic finding on lateral view of the chest. Modified Barium Swallow 11/12/16 00:00 IMPRESSION: NO EVIDENCE OF PENETRATION OR ASPIRATION.PLEASE SEE SPEECH PATHOLOGIST REPORT FOR OTHER FINDINGS AND RECOMMENDATIONS. Qualifiers PATEINT BEING DISCHARGED WITH ANY OF THE FOLLOWING DIAGNOSIS?: No Plan Time Spent: Less than 30 Minutes
--- NOTE | 2016-11-13 19:12 | PDOC CONSULTATION ---
Consultation Consult Date: 11/11/16 Attending physician:: DORA BARRERA Consult reason:: asthma History of Present Illness Admission Date/PCP: 11/08/16 15:54 History of Present Illness: HPI as per admitting physician: History of Present Illness Admission Date/PCP: 11/07/16 21:17 [facility] License Of [facility] Patient complains of: Difficulty breathing, epigastric pain History of Present Illness: JOHN GLORIA is a 26 year old male with long-standing asthma, one half pack a day smoker, who presents to the emergency room for evaluation of INCREASING DYSPNEA.He is not currently on any rescue medication and was using rescue meds 4 -8 times per day,cough green phlegm no hemoptysis PPD NEGATIVE DATE UNKNOWN.History of asthma as a child worsen with increasing weight gain eventually requiring gastric bypass surgery with several complications.He has no occupational history potential respiratory toxins.No pets and no recent travels.admits to snoring,restless sleep nocturia unrestful sleep and excessive daytime somulence Past Medical History Cardiac Medical History: Reports: DVT - Possible history; has undergone vena caval filter implant., Hyperlipidema, Hypertension - Resolved after bariatric surgery, Other - He has no history of coronary artery disease, [place] or anginal symptoms, and no symptoms of congestive heart failure or cardiac arrhythmia. He has no congenital heart disease. Denies: Atrial Fibrillation, Congestive Heart Failure, Pulmonary Embolism Pulmonary Medical History: Reports: Asthma, Chronic Obstructive Pulmonary Disease (COPD), Pneumonia, Sleep Apnea - Resolved after bariatric surgery EENT Medical History: Denies: Eyes, Ears, Throat Neurological Medical History: Reports: Other - He has no history of CVA or TIA, there is no headaches migraines or seizures. There is no gait imbalance Denies: Hemorrhagic CVA, Ischemic CVA, Seizures Endocrine Medical History: Reports: Diabetes Mellitus Type 2 - Resolved after bariatric surgery Denies: Diabetes Mellitus Type 1, Hyperthyroidism, Hypothyroidism Renal/ Medical History: Reports: None GI Medical History: Reports: Gastroesophageal Reflux Disease, Peptic Ulcer Disease - Surgical repair of perforated ulcer, February 2016, [facility] Denies: Cirrhosis, Hepatitis Musculoskeltal Medical History: Denies: Arthritis Skin Medical History: Reports: None Psychiatric Medical History: Reports: Attention Deficit Hyperactivity Disorder, Depression, General Anxiety Disorder, Tobacco Dependency Denies: Alcohol Dependency - Sixpack of beer per week, Substance Abuse Hematology: Reports: None Denies: Anemia Infectious Medical History: Denies: Clostridium Difficile, Hepatitis B, Hepatitis C, Methicillin- Resistant Staph Aureus Past Surgical History Past Surgical History: Reports: Gastric Bypass Surgery, Herniorrhaphy, Other - Vena caval filter implant. History of surgery for perforated ulcer. Social History Information Source: Patient Lives with: Family Smoking Status: Current Every Day Smoker Last Time Smoked: 2 weeks ago Passive smoke exposure as: Both Frequency of Alcohol Use: Social Hx Recreational Drug Use: No Drugs: None Hx Prescription Drug Abuse: No Do you have pets?: No Have you been exposed to any sick contacts recently?: No Have you travelled outside of [place] in the past 12 months?: No - Advance Directive Resuscitation Status: Full Code Family History Family History: Arthritis, CAD, Hypertension, Malignancy, Other - Seizures Parental Family History Reviewed: Yes Children Family History Reviewed: Yes Sibling(s) Family History Reviewed.: Yes Medication/Allergy Home Medications: Folic Acid/Multivit-Min/Lutein [Centrum Silver Chewable Tablet] 2 tab.chew PO DAILY 11/08/16 Budesonide/Formoterol Fumarate [Symbicort HFA 160-4.5 mcg Inhaler 6 gm] 2 puff IH Q12 #1 inhaler 11/12/16 Gabapentin [Neurontin 300 mg Capsule] 300 mg PO Q8 #90 capsule 11/12/16 Montelukast Sodium [Singulair 10 mg Tablet] 10 mg PO QHS #1 tablet 11/12/16 Tiotropium [place] [Spiriva Handihaler 5 Cap/Kit (18 Mcg/Cap)] 1 cap IH DAILY # 1 kit 11/12/16 Hydrocodone/Acetaminophen [[place] 10-325 mg Tablet] 1 tab PO Q6HP PRN #12 tablet 11/13/16 Levofloxacin [Levaquin 750 mg Tablet] 750 mg PO DAILY #3 tablet 11/13/16 Prednisone 20 mg PO ASDIR #15 tablet 11/13/16 Allergies/Adverse Reactions: iodine [Iodine] Allergy (Severe, Verified 11/07/16 10:37) oxycodone HCl [From Percocet] Allergy (Severe, Verified 11/07/16 22:28) fish derived [Fish derived] Allergy (Verified 11/07/16 10:37) Shellfish * [Shellfish] Allergy (Verified 11/07/16 10:37) ibuprofen [Ibuprofen] Adverse Reaction (Severe, Verified 11/07/16 10:37) bleeding Physical Exam Vital Signs: Temp Pulse Resp BP Pulse Ox 98.4 F 61 20 139/77 H 97 11/11/16 11:49 11/11/16 11:49 11/11/16 11:49 11/11/16 11:49 11/11/16 11:49 Intake & Output 11/10/16 11/11/16 11/12/16 06:59 06:59 06:59 Intake Total 3255 5505 Output Total 5 Balance 3250 5505 General appearance: PRESENT: no acute distress, cooperative, well-developed, well-nourished Head exam: PRESENT: atraumatic, normocephalic Eye exam: PRESENT: conjunctiva pale, EOMI Mouth exam: PRESENT: dry mucosa, neck supple Neck exam: PRESENT: carotid bruit Psychiatric exam: PRESENT: normal mood Skin exam: PRESENT: dry, warm Results Laboratory Results: 11/10/16 03:57 11/10/16 03:57 Impressions: Acute Abdomen Series 11/07/16 00:00 IMPRESSION: NO RADIOGRAPHIC EVIDENCE FOR ACUTE ABDOMINAL DISEASE. Abdomen/Pelvis CT 11/08/16 00:00 IMPRESSION: Enteroenteric intussusception in the midline upper abdomen. No CT evidence for small bowel obstruction. Cholelithiasis. IVC filter with the struts extending outside of the vessel lumen. Ground-glass opacity at the left lower lobe, may represent pneumonia or atelectasis. Chest X-Ray 11/08/16 00:00 IMPRESSION: No acute radiographic finding on lateral view of the chest. Assessment & Plan - Diagnosis (1) Acute hypoxemic respiratory failure Is this a current diagnosis for this admission?: YesPlan: supplemental O2 (2) Asthma exacerbation Is this a current diagnosis for this admission?: YesPlan: add LABA;LAMA and ICCS (3) Tobacco dependency Is this a current diagnosis for this admission?: YesPlan: stop smoking; mod ba swallow
--- NOTE | 2016-11-13 19:17 | PDOC PROGRESS REPORT ---
Subjective Progress Note for:: 11/13/16 Subjective:: i am a little better Physical Exam Vital Signs: Temp Pulse Resp BP Pulse Ox 98.3 F 85 20 132/77 H 99 11/13/16 13:47 11/13/16 13:47 11/13/16 13:47 11/13/16 13:47 11/13/16 13:47 Intake & Output 11/12/16 11/13/16 11/14/16 06:59 06:59 06:59 Intake Total 3750 4125 Balance 3750 4125 Weight 107 kg General appearance: PRESENT: no acute distress, cooperative, disheveled Head exam: PRESENT: normocephalic Respiratory exam: PRESENT: decreased breath sounds, rhonchi - scattered, unlabored, wheezes - rare Cardiovascular exam: PRESENT: RRR, +S1 Pulses: PRESENT: normal radial pulses GI/Abdominal exam: PRESENT: normal bowel sounds, soft. ABSENT: distended, guarding, mass, organolmegaly, rebound, tenderness Rectal exam: PRESENT: deferred Musculoskeletal exam: PRESENT: normal inspection Neurological exam: PRESENT: alert, awake Psychiatric exam: PRESENT: normal mood Skin exam: PRESENT: dry, warm Results Laboratory Results: 11/12/16 06:06 11/12/16 06:06 Impressions: Acute Abdomen Series 11/07/16 00:00 IMPRESSION: NO RADIOGRAPHIC EVIDENCE FOR ACUTE ABDOMINAL DISEASE. Abdomen/Pelvis CT 11/08/16 00:00 IMPRESSION: Enteroenteric intussusception in the midline upper abdomen. No CT evidence for small bowel obstruction. Cholelithiasis. IVC filter with the struts extending outside of the vessel lumen. Ground-glass opacity at the left lower lobe, may represent pneumonia or atelectasis. Chest X-Ray 11/08/16 00:00 IMPRESSION: No acute radiographic finding on lateral view of the chest. Modified Barium Swallow 11/12/16 00:00 IMPRESSION: NO EVIDENCE OF PENETRATION OR ASPIRATION.PLEASE SEE SPEECH PATHOLOGIST REPORT FOR OTHER FINDINGS AND RECOMMENDATIONS. Assessment & Plan - Diagnosis (1) Acute hypoxemic respiratory failure Is this a current diagnosis for this admission?: Yes (2) Asthma exacerbation Is this a current diagnosis for this admission?: YesPlan: air movement dramatically improve (3) Tobacco dependency Is this a current diagnosis for this admission?: YesPlan: STOP SMOKING
== END 2016-11-13 14:24 | disposition home or self-care (01) | DRG 202 ==
LOC: ER 19:21 → UNDOADMOB 21:17 → EH 21:17 → 5 11-08 00:52 → OBSVTOIN 11-08 15:54
PROVIDERS: ADMIT Family Medicine; ATTEND Family Medicine
PROC: 3E0F73Z Introduction of Anti-inflammatory into Respiratory Tract, Via Natural or Artificial Opening (ICD-10-PCS; principal; 2016-11-08)
DX: J45.901 Unspecified asthma with (acute) exacerbation (principal); J96.01 Acute respiratory failure with hypoxia; J18.9 Pneumonia, unspecified organism; F17.210 Nicotine dependence, cigarettes, uncomplicated; E78.5 Hyperlipidemia, unspecified; I10 Essential (primary) hypertension; J44.9 Chronic obstructive pulmonary disease, unspecified; E11.9 Type 2 diabetes mellitus without complications; K21.9 Gastro-esophageal reflux disease without esophagitis; F90.9 Attention-deficit hyperactivity disorder, unspecified type; F41.1 Generalized anxiety disorder; F32.9 Major depressive disorder, single episode, unspecified; K80.20 Calculus of gallbladder without cholecystitis without obstruction; G89.29 Other chronic pain; G47.30 Sleep apnea, unspecified; Z87.11 Personal history of peptic ulcer disease; Z88.6 Allergy status to analgesic agent; Z91.013 Allergy to seafood; Z91.09 Other allergy status, other than to drugs and biological substances; Z79.899 Other long term (current) drug therapy; Z98.84 Bariatric surgery status; Z86.718 Personal history of other venous thrombosis and embolism; Z82.61 Family history of arthritis; Z80.9 Family history of malignant neoplasm, unspecified; Z82.49 Family history of ischemic heart disease and other diseases of the circulatory system; Z82.5 Family history of asthma and other chronic lower respiratory diseases
CPT/HCPCS: 36415; 71010; 74022; 74176; 74230; 80048; 80053; 80307; 82803; 82962; 83690; 83735; 84100; 84132; 84484; 85025; 87040; 93005; 93010; 93306; 94640; 94799; 96365; 99285; G0378; J0456; J0696; J1650; J1885; J2270; J2920; J2930; J3475; J3490; J7030; J7060; J7620; S0028

== ENCOUNTER 2016-11-21 19:15 | Emergency (ER) | payer OTHER ==
--- NOTE | 2016-11-21 20:17 | ER Document Report ---
ED Medical Screen (RME) - General Chief Complaint: Abdominal Pain Stated Complaint: ABDOMINAL PAIN,BLOOD IN STOOL Time Seen by Provider: 11/21/16 20:03 Mode of Arrival: Ambulatory Information source: Patient Notes: 9-year-old male presents to ED for generalized abdominal pain. He states he was admitted to the hospital for pneumonia and discharged on November 13 after being in the hospital for over a week. He states during his hospital stay he took the multiple times that he had generalized abdominal pain and that they did CAT scans and blood work and send him home even though he still had abdominal pain. He states he was told that there was something wrong but that they did not want to put him on the anesthesia at that time. He has a history of a gastric bypass in 2015 and had a perforated floor of the pelvis and stomach in 2016. He states he been nauseated with no vomiting fever coughing up some blood in his had bloody stools for the last couple days. I have greeted and performed a rapid initial assessment of this patient. A comprehensive ED assessment and evaluation of the patient, analysis of test results and completion of medical decision making process will be conducted by an additional ED providers. TRAVEL OUTSIDE OF THE [place] IN LAST 30 DAYS: No - HPI Onset: Other - several weeks - Related Data Allergies/Adverse Reactions: iodine [Iodine] Allergy (Severe, Verified 11/21/16 19:26) oxycodone HCl [From Percocet] Allergy (Severe, Verified 11/21/16 19:26) fish derived [Fish derived] Allergy (Verified 11/21/16 19:26) Shellfish * [Shellfish] Allergy (Verified 11/21/16 19:26) ibuprofen [Ibuprofen] Adverse Reaction (Severe, Verified 11/21/16 19:26) bleeding Past Medical History - Social History Chew tobacco use (# tins/day): No Frequency of alcohol use: Social Drug Abuse: Marijuana Family history: Hypertension, Malignancy - Past Medical History Cardiac Medical History: Reports: Hx DVT - Possible history; has undergone vena caval filter implant., Hx Hypercholesterolemia, Hx Hypertension - Resolved after bariatric surgery Denies: Hx Atrial Fibrillation, Hx Congestive Heart Failure, Hx Pulmonary Embolism Pulmonary Medical History: Reports: Hx Asthma, Hx COPD, Hx Pneumonia, Hx Sleep Apnea - Resolved after bariatric surgery Neurological Medical History: Denies: Hx Seizures Endocrine Medical History: Reports: Hx Diabetes Mellitus Type 2 - Resolved after bariatric surgery. Denies: Hx Diabetes Mellitus Type 1, Hx Hyperthyroidism, Hx Hypothyroidism Renal/ Medical History: Denies: Hx Peritoneal Dialysis GI Medical History: Reports: Hx Gastroesophageal Reflux Disease, Hx Irritable Bowel, Hx Ulcer. Denies: Hx Cirrhosis, Hx Hepatitis Musculoskeltal Medical History: Denies Hx Arthritis, Reports Hx Musculoskeletal Trauma Skin Medical History: Reports Hx Cellulitis Psychiatric Medical History: Reports: Hx Anxiety, Hx Attention Deficit Hyperactivity Disorder, Hx Depression Traumatic Medical History: Reports: Hx Fractures - 5th finger Infectious Medical History: Denies: Hx C-Diff, Hx Hepatitis, Hx MRSA Past Surgical History: Reports: Hx Abdominal Surgery - gastric bypass, Hx Bowel Surgery - hernia repair., Hx Gastric Bypass Surgery, Hx Herniorrhaphy, Other - Vena caval filter implant. History of surgery for perforated ulcer. - Immunizations Immunizations up to date: Yes Hx Diphtheria, Pertussis, Tetanus Vaccination: Yes Physical Exam - Vital signs Vitals: Temp Pulse Resp BP Pulse Ox 98.7 F 99 18 121/69 100 11/21/16 19:19 11/21/16 19:19 11/21/16 19:19 11/21/16 19:19 11/21/16 19:19 Course - Vital Signs Vital signs: Temp Pulse Resp BP Pulse Ox 98.7 F 99 18 121/69 100 11/21/16 19:19 11/21/16 19:19 11/21/16 19:19 11/21/16 19:19 11/21/16 19:19
[2016-11-21 20:36] LABS: ABSOLUTE LYMPHOCYTES (AUTO) 2.7 10^3/uL (0.5-4.7); ABSOLUTE MONOCYTES (AUTO) 0.6 10^3/uL (0.1-1.4); ABSOLUTE NEUT (AUTO) 4.7 10^3/uL (1.7-8.2); BASOPHILS % (AUTO) 0.4 % (0-2); EOSINOPHILS % (AUTO) 0.6 % (0-6); HEMATOCRIT 38.5 % (37.9-51.0); HEMOGLOBIN 13.1 g/dL (13.5-17.0); HGB HCT DIFFERENCE 0.8; LYMPHOCYTES % (AUTO) 33.1 % (13-45); MEAN CORPUSCULAR HEMOGLOBIN 31.9 pg (27.0-33.4); MEAN CORPUSCULAR HGB CONC 34.1 g/dL (32.0-36.0); MEAN CORPUSCULAR VOLUME 94 fl (80-97); MONOCYTES % (AUTO) 7.9 % (3-13); RED BLOOD COUNT 4.11 10^6/uL (4.35-5.55); RED CELL DISTRIBUTION WIDTH 13.5 % (11.5-14.0); WHITE BLOOD COUNT 8.1 10^3/uL (4.0-10.5)
[2016-11-21 20:43] LABS: APPEARANCE,URINE CLEAR; BILIRUBIN,URINE NEGATIVE (NEGATIVE); GLUCOSE, URINE NEGATIVE (NEGATIVE); KETONES,URINE NEGATIVE (NEGATIVE); LEUKOCYTE ESTERASE,URINE NEGATIVE (NEGATIVE); NITRITE,URINE NEGATIVE (NEGATIVE); PROTEIN,URINE NEGATIVE (NEGATIVE); URINE SPECIFIC GRAVITY 1.025; UROBILINOGEN,URINE NEGATIVE mg/dL (<2.0)
[2016-11-21 20:52] LABS: ALANINE AMINOTRANSFERASE 38 U/L (21-72); ALBUMIN 3.6 g/dL (3.5-5.0); ALKALINE PHOSPHATASE 39 U/L (38-126); ANION GAP 7 (5-19); ASPARTATE AMINO TRANSFERASE 18 U/L (17-59); BILIRUBIN,DIRECT 0.2 mg/dL (0.0-0.4); BILIRUBIN,TOTAL 0.5 mg/dL (0.2-1.3); BLOOD UREA NITROGEN 33 mg/dL (7-20); CALCIUM 8.9 mg/dL (8.4-10.2); CARBON DIOXIDE 28 mmol/L (22-30); CHLORIDE 104 mmol/L (98-107); CREATININE RESULT 0.77 mg/dL (0.52-1.25); GLUCOSE 78 mg/dL (75-110); LIPASE 170.1 U/L (23-300); POTASSIUM 4.6 mmol/L (3.6-5.0); SODIUM 139.3 mmol/L (137-145); TOTAL PROTEIN 6.4 g/dL (6.3-8.2)
--- NOTE | 2016-11-21 22:56 | ER Document Report ---
ED General - General Chief Complaint: Abdominal Pain Stated Complaint: ABDOMINAL PAIN,BLOOD IN STOOL Time Seen by Provider: 11/21/16 20:03 Mode of Arrival: Ambulatory Notes: Patient is a 26-year-old male with a history of a Maura-en-Y gastric surgery. This was done at [facility] by Dr. Villar. Just over a week ago is admitted to the hospital because of an asthma exacerbation and pneumonia. While he was very also mentioned that he has been having a lot of abdominal pain for the previous week. Pain is over the epigastric area. There is a CT scan which showed a possible small bowel small bowel intussusception. He was seen by the general surgeon is determined at this time they would hold off on any surgery or laparoscopy as it seems unlikely that this was causing any significant problems except is no dilation of the proximal small bowel. Since then patient says he continue have the same pain. Will bit worse after eating. He says that today he started noticing blood in his stool and therefore is come to the ER. He says he has had 4 bowel movements today and all of them has had associated blood. He did bring pictures from the toilet which shows blood in the toilet with associated stool. No vomiting. No fevers. No other complaints at this time. TRAVEL OUTSIDE OF THE [place] IN LAST 30 DAYS: No - Related Data Allergies/Adverse Reactions: iodine [Iodine] Allergy (Severe, Verified 11/21/16 19:26) oxycodone HCl [From Percocet] Allergy (Severe, Verified 11/21/16 19:26) fish derived [Fish derived] Allergy (Verified 11/21/16 19:26) Shellfish * [Shellfish] Allergy (Verified 11/21/16 19:26) ibuprofen [Ibuprofen] Adverse Reaction (Severe, Verified 11/21/16 19:26) bleeding Past Medical History - General Information source: Patient - Social History Smoking Status: Current Every Day Smoker Chew tobacco use (# tins/day): No Frequency of alcohol use: Social Drug Abuse: Marijuana Family History: Arthritis, CAD, Hypertension, Malignancy, Other - Seizures Patient has suicidal ideation: No Patient has homicidal ideation: No - Past Medical History Cardiac Medical History: Reports: Hx DVT - Possible history; has undergone vena caval filter implant., Hx Hypercholesterolemia, Hx Hypertension - Resolved after bariatric surgery Denies: Hx Atrial Fibrillation, Hx Congestive Heart Failure, Hx Pulmonary Embolism Pulmonary Medical History: Reports: Hx Asthma, Hx COPD, Hx Pneumonia, Hx Sleep Apnea - Resolved after bariatric surgery Neurological Medical History: Denies: Hx Seizures Endocrine Medical History: Reports: Hx Diabetes Mellitus Type 2 - Resolved after bariatric surgery. Denies: Hx Diabetes Mellitus Type 1, Hx Hyperthyroidism, Hx Hypothyroidism Renal/ Medical History: Denies: Hx Peritoneal Dialysis GI Medical History: Reports: Hx Gastroesophageal Reflux Disease, Hx Irritable Bowel, Hx Ulcer. Denies: Hx Cirrhosis, Hx Hepatitis Musculoskeltal Medical History: Denies Hx Arthritis, Reports Hx Musculoskeletal Trauma Skin Medical History: Reports Hx Cellulitis Psychiatric Medical History: Reports: Hx Anxiety, Hx Attention Deficit Hyperactivity Disorder, Hx Depression Traumatic Medical History: Reports: Hx Fractures - 5th finger Infectious Medical History: Denies: Hx C-Diff, Hx Hepatitis, Hx MRSA Past Surgical History: Reports: Hx Abdominal Surgery - gastric bypass, Hx Bowel Surgery - hernia repair., Hx Gastric Bypass Surgery, Hx Herniorrhaphy, Other - Vena caval filter implant. History of surgery for perforated ulcer. - Immunizations Immunizations up to date: Yes Hx Diphtheria, Pertussis, Tetanus Vaccination: Yes Hx Pneumococcal Vaccination: 01/23/11 Review of Systems - Review of Systems Notes: My Normal Review Basic REVIEW OF SYSTEMS: CONSTITUTIONAL : Denies fever, chills, or sweats. Denies recent illness. EENT: Denies eye, ear, throat, or mouth pain or symptoms. Denies nasal or sinus congestion. RESPIRATORY: Denies cough, cold, or chest congestion. Denies shortness of breath, difficulty breathing, or wheezing. GASTROINTESTINAL: Has abdominal pain. Blood in stool. MUSCULOSKELETAL: Denies neck or back pain or joint pain or swelling. SKIN: Denies rash or skin lesions. NEUROLOGICAL: Denies altered mental status or loss of consciousness. Denies headache. Denies weakness or paralysis or loss of use of either side. Denies problems with gait or speech. Denies sensory or motor loss. ALL OTHER SYSTEMS REVIEWED AND NEGATIVE. Physical Exam - Vital signs Vitals: Temp Pulse Resp BP Pulse Ox 98.7 F 99 18 121/69 100 11/21/16 19:19 11/21/16 19:19 11/21/16 19:19 11/21/16 19:19 11/21/16 19:19 - Notes Notes: General Appearance: Well nourished, alert, cooperative, no acute distress, no obvious discomfort. Vitals: reviewed, See vital signs table. Head: no swelling or tenderness to the head Eyes: PERRL, EOMI, Conjuctiva clear Mouth: No decreasd moisture Lungs: No wheezing, No rales, No rhonci, No accessory muscle use, good air exchange bilaterally. Heart: Normal rate, Regular rythm, No murmur, no rub Abdomen: Normal BS, soft, No rigidity, moderate epigastric abdominal tenderness to palpation, no abdominal masses, Extremities: strength 5/5 in all extremities, good pulses in all extremities, no swelling or tenderness in the extremities, no edema. Skin: warm, dry, appropriate color, no rash Neuro: speech clear, oriented x 3, normal affect, responds appropriately to questions. Course - Re-evaluation Re-evalutation: 11/22/16 01:[address] Staley the surgeons. He did review the patient's records from there. He agrees that the patient most likely does have a developing ulcer. He recommends patient continues Nexium. Recommend patient stop smoking. She does recommend I place the patient on Carafate. He says that he would write a note to the office to move up the patient's appointment very soon. I did speak with the patient informed him of this. I informed him he must return to ER if he has any vomiting of blood, worsening continuous blood in the stool, worsening pain, fevers, or she feels symptoms are worsening. I informed him that he cannot drink alcohol. I informed him that the only liquid he should be drinking his water. I informed him to quit smoking. I encouraged him to continue take Nexium. Patient agrees with plan will be discharged home. I told him to avoid all NSAID medications. I told him Tylenol is safe to take. - Vital Signs Vital signs: Temp Pulse Resp BP Pulse Ox 98.7 F 99 18 121/69 100 11/21/16 19:19 11/21/16 19:19 11/21/16 19:19 11/21/16 19:19 11/21/16 19:19 - Laboratory Result Diagrams: 11/21/16 20:20 11/21/16 20:20 Laboratory results interpreted by me: 11/21/16 11/21/16 20:20 20:20 RBC 4.11 L Hgb 13.1 L BUN 33 H Discharge - Discharge Clinical Impression: Hematochezia Abdominal pain Qualifiers: Abdominal location: epigastric Qualified Code(s): R10.13 - Epigastric pain Condition: Good Disposition: HOME, SELF-CARE Additional Instructions: Please call Your surgical office in [place] tomorrow. Tell them that you were seen in the ER and your case was discussed with Dr. Staley who wants you to follow up closely in the clinic. Please continue to take Nexium. please try to fill the prescription for the Carafate. Please stop smoking. Please avoid all alcohol. Take Tylenol for pain. Return to the ER immediately if you have any vomiting of blood, worsening pain, fevers, or increasing amounts of blood in your stool. Prescriptions: Sucralfate [Carafate 1 gm Tablet] 1 gm PO ACHS #120 tablet
[2016-11-22] MEDS ORDERED: MORPHINE SULFATE 10 MG/ML INJ IV ONE (00:22)
--- NOTE | 2016-11-22 01:23 | RADIOLOGY REPORT (SQ) ---
EXAM DESCRIPTION: CT ABD/PELVIS ORAL ONLY COMPLETED DATE/TIME: 11/22/2016 1:03 am REASON FOR STUDY: abdominal pain COMPARISON: 11.08.16 TECHNIQUE: CT scan of the abdomen and pelvis performed without intravenous or oral contrast. Images reviewed with lung, soft tissue, and bone windows. Reconstructed coronal and sagittal MPR images revi ewed. All images stored on PACS. All CT scanners at this facility use dose modulation, iterative reconstruction, and/or weight based d osing when appropriate to reduce radiation dose to as low as reasonably achievable (ALARA). [facility]: Dose Right [facility]: CareDose [facility]: Dose Right [facility]: Teradose 4D [facility]: Sensorly RADIATION DOSE: 644 LIMITATIONS: None. FINDINGS: LOWER CHEST: No significant findings. No nodules or infiltrates. NON-CONTRASTED LIVER, SPLEEN, ADRENALS: Evaluation limited by lack of IV contrast. No identified sign ificant masses. PANCREAS: No masses. No peripancreatic inflammatory changes. GALLBLADDER: Punctate cholelithiasis. RIGHT KIDNEY AND URETER: No suspicious masses. Assessment limited by lack of IV contrast. No signif icant calcifications. No hydronephrosis or hydroureter. LEFT KIDNEY AND URETER: No suspicious masses. Assessment limited by lack of IV contrast. No signifi cant calcifications. No hydronephrosis or hydroureter. AORTA AND RETROPERITONEUM: No aneurysm. No retroperitoneal masses or adenopathy. BOWEL AND PERITONEAL CAVITY: No obvious masses or inflammatory changes. No free fluid. Gastric bypas s suture material. Mid abdominal bowel suture material. No significant obstructive findings. Orall y administered contrast is seen in the large colon. APPENDIX: Normal. PELVIS, BLADDER, AND ABDOMINAL WALL:No abnormal masses. No free fluid. Bladder normal. BONES: No significant findings. OTHER: IVC filter. IMPRESSION: No acute findings. TECHNICAL DOCUMENTATION: JOB ID: [id number] Quality ID # [id number]: Final reports with documentation of one or more dose reduction techniques (e.g., Au tomated exposure control, adjustment of the mA and/or kV according to patient size, use of iterative reconstruction technique) 2010 [employer]- All Rights Reserved
[2016-11-22 02:20] VITALS: BP 117/74
== END 2016-11-22 02:21 | disposition home or self-care (01) ==
LOC: ER 19:15
DX: K21.9 Gastro-esophageal reflux disease without esophagitis (principal); R10.13 Epigastric pain; K92.1 Melena; Z98.84 Bariatric surgery status; J44.9 Chronic obstructive pulmonary disease, unspecified; F17.200 Nicotine dependence, unspecified, uncomplicated; Z88.5 Allergy status to narcotic agent; Z91.013 Allergy to seafood; Z79.899 Other long term (current) drug therapy
CPT/HCPCS: 99284; 96374; 36415; 87086; 83690; 85025; 82272; 80053; 81001; 74176; J2270

== ENCOUNTER 2017-02-17 02:02 | Emergency (ER) | payer OTHER ==
[2017-02-17] MEDS ORDERED: IPRATROPIUM/ALBUTEROL 0.5-2.5 MG/3 ML AMPUL NEB ONE (02:29)
[2017-02-17] MEDS: ALBUTEROL SULFATE 0.083% NEB 2.5 MG/3 ML AMPUL NEB SCH ×2 (02:33→04:04)
[2017-02-17] MEDS ORDERED: PREDNISONE 20 MG TABLET PO ONE (02:51)
--- NOTE | 2017-02-17 02:53 | ER Document Report ---
ED Respiratory Problem - General Chief Complaint: Shortness Of Breath Stated Complaint: DIFFICULTY BREATHING Time Seen by Provider: 02/17/17 02:50 Notes: The patient is a 26-year-old male, past medical history asthma, presents with increased shortness of breath and wheezing starting 2 days ago. He is also having a dry cough and chest pain that occurs when he coughs. He tried some albuterol without much relief of his symptoms. Patient's last exacerbation was 3 months ago when he had asthma and pneumonia and was admitted for 1 week for further treatment. Patient denies fevers, sputum, leg swelling, hemoptysis, nausea, vomiting, rash or recent travel. TRAVEL OUTSIDE OF THE [place] IN LAST 30 DAYS: No - Related Data Allergies/Adverse Reactions: iodine [Iodine] Allergy (Severe, Verified 11/21/16 19:26) oxycodone HCl [From Percocet] Allergy (Severe, Verified 11/21/16 19:26) fish derived [Fish derived] Allergy (Verified 11/21/16 19:26) Shellfish * [Shellfish] Allergy (Verified 11/21/16 19:26) ibuprofen [Ibuprofen] Adverse Reaction (Severe, Verified 11/21/16 19:26) bleeding Past Medical History - General Information source: Patient - Social History Smoking Status: Current Every Day Smoker Family History: Arthritis, CAD, Hypertension, Malignancy, Other - Seizures Patient has suicidal ideation: No Patient has homicidal ideation: No - Past Medical History Cardiac Medical History: Reports: Hx DVT - Possible history; has undergone vena caval filter implant., Hx Hypercholesterolemia, Hx Hypertension - Resolved after bariatric surgery Denies: Hx Atrial Fibrillation, Hx Congestive Heart Failure, Hx Pulmonary Embolism Pulmonary Medical History: Reports: Hx Asthma, Hx COPD, Hx Pneumonia, Hx Sleep Apnea - Resolved after bariatric surgery Neurological Medical History: Denies: Hx Seizures Endocrine Medical History: Reports: Hx Diabetes Mellitus Type 2 - Resolved after bariatric surgery. Denies: Hx Diabetes Mellitus Type 1, Hx Hyperthyroidism, Hx Hypothyroidism Renal/ Medical History: Denies: Hx Peritoneal Dialysis GI Medical History: Reports: Hx Gastroesophageal Reflux Disease, Hx Irritable Bowel, Hx Ulcer. Denies: Hx Cirrhosis, Hx Hepatitis Musculoskeltal Medical History: Denies Hx Arthritis, Reports Hx Musculoskeletal Trauma Skin Medical History: Reports Hx Cellulitis Psychiatric Medical History: Reports: Hx Anxiety, Hx Attention Deficit Hyperactivity Disorder, Hx Depression Traumatic Medical History: Reports: Hx Fractures - 5th finger Infectious Medical History: Denies: Hx C-Diff, Hx Hepatitis, Hx MRSA Past Surgical History: Reports: Hx Abdominal Surgery - gastric bypass, Hx Bowel Surgery - hernia repair., Hx Gastric Bypass Surgery, Hx Herniorrhaphy, Other - Vena caval filter implant. History of surgery for perforated ulcer. - Immunizations Immunizations up to date: Yes Hx Diphtheria, Pertussis, Tetanus Vaccination: Yes Hx Pneumococcal Vaccination: 01/23/11 Review of Systems - Review of Systems Notes: REVIEW OF SYSTEMS: CONSTITUTIONAL: -fevers, -chills EENT: -eye pain, -difficulty swallowing, -nasal congestion CARDIOVASCULAR: +chest pain, -syncope. RESPIRATORY: +cough, +SOB GASTROINTESTINAL: -abdominal pain, - nausea, -vomiting, -diarrhea GENITOURINARY: -dysuria, -hematuria MUSCULOSKELETAL: -back pain, -neck pain SKIN: -rash or skin lesions. HEMATOLOGIC: -easy bruising or bleeding. LYMPHATIC: -swollen, enlarged glands. NEUROLOGICAL: -altered mental status or loss of consciousness, -headache, - neurologic symptoms PSYCHIATRIC: -anxiety, -depression. ALL OTHER SYSTEMS REVIEWED AND NEGATIVE. Physical Exam - Vital signs Vitals: Temp Pulse Resp BP Pulse Ox 98.9 F 116 H 20 145/66 H 94 02/17/17 02:40 02/17/17 02:40 02/17/17 02:40 02/17/17 02:40 02/17/17 02:40 - Notes Notes: PHYSICAL EXAMINATION: GENERAL: Well-appearing, well-nourished and in no acute distress. HEAD: Atraumatic, normocephalic. EYES: Pupils equal round and reactive to light, extraocular movements intact, sclera anicteric, conjunctiva are normal. ENT: nares patent, oropharynx clear without exudates. Moist mucous membranes. NECK: Normal range of motion, supple without lymphadenopathy LUNGS: Wheezing. HEART: Tachycardia. Regular rhythm. ABDOMEN: Soft, nontender, normoactive bowel sounds. No guarding, no rebound. No masses appreciated. EXTREMITIES: Normal range of motion, no pitting or edema. No cyanosis. NEUROLOGICAL: Cranial nerves grossly intact. Normal speech, normal gait. Normal sensory and motor exams. PSYCH: Normal mood, normal affect. SKIN: Warm, Dry, normal turgor, no rashes or lesions noted. Course - Re-evaluation Re-evalutation: Patient presents with wheezing and mild respiratory distress that resolved after steroids and 3 duonebs. Repeat exam does not show any wheezing and he is satting 100% on room air. Chest x-ray does not show any acute abnormalities and blood work is unremarkable, other than a slight leukocytosis. Patient does not have a fever and lactate is normal. Patient says he smokes weed intermittently to help with his pain from his abdominal ulcer. Instructed him that this may be leading to his asthma exacerbations and advised him to stop smoking. Patient also has not been taking his Singulair or Spiriva inhaler and has not followed up with his skin specialist invited because he does not have the time. Refilled the Singulair and Spiriva and albuterol nebs and instructed him that he must follow-up with the skin specialist. Will discharge patient home with steroids and a refill of his albuterol with follow-up at his primary care physician. Given strict return precautions and he understands. - Vital Signs Vital signs: Temp Pulse Resp BP Pulse Ox 98.9 F 116 H 24 H 145/66 H 94 02/17/17 02:40 02/17/17 02:40 02/17/17 03:13 02/17/17 02:40 02/17/17 02:40 - Laboratory Result Diagrams: 02/17/17 02:50 02/17/17 02:50 Laboratory results interpreted by me: 02/17/17 02/17/17 02:50 02:50 WBC 11.0 H Hgb 10.8 L Hct 33.8 L MCV 76 L MCH 24.4 L RDW 18.2 H Absolute Neutrophils 8.4 H Sodium 145.1 H Chloride 108 H Glucose 116 H - Diagnostic Test Radiology reviewed: Image reviewed, Reports reviewed Radiology results interpreted by me: CXR: NAD - EKG Interpretation by Me EKG shows normal: Sinus rhythm, [place], Intervals, QRS Complexes, ST-T Waves Rate: Tachycardia When compared to previous EKG there are: No significant change Discharge - Discharge Clinical Impression: Asthma exacerbation Qualifiers: Asthma severity: unspecified severity Asthma persistence: intermittent Qualified Code(s): J45.21 - Mild intermittent asthma with (acute) exacerbation Condition: Stable Disposition: HOME, SELF-CARE Additional Instructions: ASTHMA: You have been diagnosed as having asthma. This is a condition where there is episodic tightness in the bronchial tubes. Allergies, infections, and polluted or cold air may be contributing factors. Emergency treatment of a severe asthma attack may include adrenaline shots , or bronchodilator aerosol. You may feel lightheaded, have a decreased exercise tolerance and a rapid pulse for an hour or two. Rest and get plenty of fluids. Home treatment of asthma requires bronchodilator drugs. These can be administered by injection, inhalation, or by mouth. Antibiotics and corticosteroids may be required for some patients. You should avoid chemical fumes, dusts, pollens, and exercising in very cold or dry air. If you smoke, stop!! If you develop a fever, increased wheezing, chest pain, or severe shortness of breath, you should contact the doctor immediately. STEROID MEDICATION: You have been given an injection of or oral medicine of the cortisone/ steroid class. This medication is used to control inflammation or allergy. Jermain t is usually only given for a short period of time, until the acute process subsides. There are usually no side effects from short-term use of cortisone-like medications. Some persons feel an increased sense of well-being and are not sleepy at bedtime. Long-term use of cortisone medications is best avoided, unless required for a severe condition. If your condition does not remit, or relapses after the course of corticosteroid medication, you should consult your physician. INHALED BRONCHODILATORS: You have received treatment(s) of and/or prescription for an inhaled bronchodilator -- a medication which stimulates the airways in the lung to dilate. This improves the flow of air in asthma, bronchitis, and emphysema. These medicines have some similarity to adrenaline, and can cause similar side effects: shakiness, racing heart, and a sense of nervousness. These side effects decrease with time. Contact your doctor if these side effects are severe. Do not over-use the medicine. Too-frequent use of the inhaler may make it ineffective. Call your doctor if the inhaler is not controlling your symptoms at the prescribed doses. SMOKING: If you smoke, you should stop smoking. The tar and chemicals in cigarette smoke are harmful. Smoking has been shown to cause: emphysema chronic bronchitis lung cancer mouth and throat cancer stomach and pancreas cancer premature aging defects In addition, smoking increases ear and lung infections in children of smokers. USE OF ACETAMINOPHEN: Acetaminophen may be taken for pain relief or fever control. It's much safer than aspirin, offering a wider range of "safe" dosages. It is safe during . Some brand names are Tylenol, Panadol, Datril, Anacin 3, Tempra, and Liquiprin. Acetaminophen can be repeated every four hours. The following are maximum recommended dosages: USE OF ACETAMINOPHEN (Tylenol): Acetaminophen may be taken for pain relief or fever control. It's much safer than aspirin, offering a wider range of "safe" dosages. It is safe during . Some brand names are Tylenol, Panadol, Datril, Anacin 3, Tempra, and Liquiprin. Acetaminophen can be repeated every four hours. The following are maximum recommended dosages: WEIGHT Dose Drops Elixir Chewable( 80mg) (LBS.) drprs=droppers tsp=teaspoon 6 40 mg 0.4 ml (1/2) 6-11 80 mg 0.8 ml (full) tsp 1 tab 12-16 120 mg 1 1/2 drprs 3/4 tsp 1 1/2 tabs 17-23 160 mg 2 drprs 1 tsp 2 tabs 24-30 240 mg 3 drprs 1 1/2 tsp 3 tabs 30-35 320 mg 2 tsp 4 tabs 36-41 360 mg 2 1/4 tsp 4 1/2 tabs 42-47 400 mg 2 1/2 tsp 5 tabs 48-53 480 mg 3 tsp 6 tabs 54-59 520 mg 3 1/4 tsp 6 1/2 tabs 60-64 560 mg 3 1/2 tsp 7 tabs 65-70 600 mg 3 3/4 tsp 7 1/2 tabs 71-76 640 mg 4 tsp 8 tabs 77-82 720 mg 4 1/2 tsp 9 tabs 83-88 800 mg 5 tsp 10 tabs >89 pounds or adults 650 mg to 900 mg Acetaminophen can be repeated every four hours. Maximum dose not to exceed 4000 mg a day. These maximum recommended dosages are slightly higher than the dosages written on the product container, but these dosages are very safe and below the toxic dosage for acetaminophen. FOLLOW-UP CARE: If you have been referred to a physician for follow-up care, call the physician s office for an appointment as you were instructed or within the next two days. If you experience worsening or a significant change in your symptoms, notify the physician immediately or return to the Emergency Department at any time for re-evaluation. Prescriptions: Montelukast Sodium [Singulair 10 mg Tablet] 10 mg PO QHS #30 tablet Albuterol Sulfate [Proair HFA Inhalation Aerosol 8.5 gm MDI] 2 puff IH Q4H PRN # 1 mdi PRN Reason: Albuterol Sulfate [Albuterol Sulfate 2.5mg/3 mL] 1 vial IH Q4 PRN #30 vial PRN Reason: Prednisone [Deltasone 10 mg Tablet] 10 mg PO ASDIR PRN #21 tablet PRN Reason: Tiotropium [place] [Spiriva Handihaler 5 Cap/Kit (18 Mcg/Cap)] 1 cap IH DAILY # 5 capsule
[2017-02-17 03:09] LABS: ABSOLUTE EOSINOPHILS # (AUTO) 0.2 10^3/uL (0.0-0.6); ABSOLUTE LYMPHOCYTES (AUTO) 1.5 10^3/uL (0.5-4.7); ABSOLUTE MONOCYTES (AUTO) 0.9 10^3/uL (0.1-1.4); ABSOLUTE NEUT (AUTO) 8.4 10^3/uL (1.7-8.2); BASOPHILS % (AUTO) 0.4 % (0-2); EOSINOPHILS % (AUTO) 1.9 % (0-6); HEMATOCRIT 33.8 % (37.9-51.0); HEMOGLOBIN 10.8 g/dL (13.5-17.0); HGB HCT DIFFERENCE -1.4; LYMPHOCYTES % (AUTO) 13.5 % (13-45); MEAN CORPUSCULAR HEMOGLOBIN 24.4 pg (27.0-33.4); MEAN CORPUSCULAR VOLUME 76 fl (80-97); MONOCYTES % (AUTO) 7.8 % (3-13); RED BLOOD COUNT 4.43 10^6/uL (4.35-5.55); RED CELL DISTRIBUTION WIDTH 18.2 % (11.5-14.0); SEGMENTED NEUTROPHILS % (AUTO) 76.4 % (42-78)
[2017-02-17 03:29] LABS: ALANINE AMINOTRANSFERASE 29 U/L (21-72); ALBUMIN 4.1 g/dL (3.5-5.0); ALKALINE PHOSPHATASE 56 U/L (38-126); ANION GAP 13 (5-19); ASPARTATE AMINO TRANSFERASE 23 U/L (17-59); BILIRUBIN,DIRECT 0.2 mg/dL (0.0-0.4); BILIRUBIN,TOTAL 0.4 mg/dL (0.2-1.3); BLOOD UREA NITROGEN 16 mg/dL (7-20); CALCIUM 9.4 mg/dL (8.4-10.2); CARBON DIOXIDE 24 mmol/L (22-30); CHLORIDE 108 mmol/L (98-107); CREATININE RESULT 0.64 mg/dL (0.52-1.25); GLUCOSE 116 mg/dL (75-110); SODIUM 145.1 mmol/L (137-145); TOTAL PROTEIN 6.8 g/dL (6.3-8.2)
[2017-02-17 03:42] LABS: VENOUS BLOOD BASE EXCESS -0.6 mmol/L; VENOUS BLOOD HCO3 24.1 mmol/L (20-32); VENOUS BLOOD PH 7.4 (7.30-7.42)
[2017-02-17] MEDS ORDERED: ACETAMINOPHEN 325 MG TABLET PO ONE (03:56)
[2017-02-17] MEDS ORDERED: ALBUTEROL SULFATE 0.083% NEB 2.5 MG/3 ML AMPUL NEB ONE (04:20)
--- NOTE | 2017-02-17 04:31 | RADIOLOGY REPORT (SQ) ---
EXAM DESCRIPTION: CHEST SINGLE VIEW COMPLETED DATE/TIME: 02/17/2017 3:44 am REASON FOR STUDY: sob COMPARISON: 11/07/2016. 11/08/2016. EXAM PARAMETERS: NUMBER OF VIEWS: One view. TECHNIQUE: Single frontal radiographic view of the chest acquired. RADIATION DOSE: NA LIMITATIONS: None. FINDINGS: LUNGS AND PLEURA: No opacities, masses or pneumothorax. No pleural effusion. MEDIASTINUM AND HILAR STRUCTURES: No masses. Contour normal. HEART AND VASCULAR STRUCTURES: Heart normal in size. Normal vasculature. BONES: No acute findings. HARDWARE: None in the chest. OTHER: No other significant finding. IMPRESSION: NO ACUTE RADIOGRAPHIC FINDING IN THE CHEST. TECHNICAL DOCUMENTATION: JOB ID: [id number]
[2017-02-17 05:13] VITALS: BP 137/63
--- NOTE | 2017-02-17 09:07 | EKG REPORT ---
SEVERITY:- BORDERLINE ECG - SINUS TACHYCARDIA INFERIOR Q WAVES, PROBABLY NORMAL VARIATION : Confirmed by: Festus Bill 17-Feb-2017 09:06:32
== END 2017-02-17 04:55 | disposition home or self-care (01) ==
LOC: ER 02:02
DX: J45.21 Mild intermittent asthma with (acute) exacerbation (principal); T48.6X6A Underdosing of antiasthmatics, initial encounter; T44.3X6A Underdosing of other parasympatholytics [anticholinergics and antimuscarinics] and spasmolytics, initial encounter; Z91.128 Patient's intentional underdosing of medication regimen for other reason; Z91.14 Patient's other noncompliance with medication regimen; J44.9 Chronic obstructive pulmonary disease, unspecified; R06.02 Shortness of breath; R05 Cough; R07.89 Other chest pain; R00.0 Tachycardia, unspecified; D72.829 Elevated white blood cell count, unspecified; F17.200 Nicotine dependence, unspecified, uncomplicated; Z87.01 Personal history of pneumonia (recurrent); Z88.5 Allergy status to narcotic agent; Z91.013 Allergy to seafood; Z98.84 Bariatric surgery status
CPT/HCPCS: 93005; 94640 ×2; 99285; 36415; 85025; 80053; 84484; 82803; 83605; 71010; 93010; J7512; J7620

== ENCOUNTER 2017-05-22 11:42 | Emergency (ER) | payer OTHER ==
[2017-05-22 12:59] LABS: A TYPE INFLUENZA AG NEGATIVE (NEGATIVE); B INFLUENZA AG NEGATIVE (NEGATIVE)
[2017-05-22] MEDS ORDERED: PENICILLIN G BENZATHINE 1.2 MILLION UNIT/2 ML DISP.SYRIN IM ONE (13:04)
--- NOTE | 2017-05-22 13:05 | ER Document Report ---
ED General - General Chief Complaint: Flu Symptoms Stated Complaint: FLU SYMPTOMS Time Seen by Provider: 05/22/17 12:23 Mode of Arrival: Ambulatory Information source: Patient Notes: 27-year-old male presents with complaints of sore throat body aches nausea fevers of 2 day duration. Patient notes no sick contacts. Admits to pain in his throat TRAVEL OUTSIDE OF THE [place] IN LAST 30 DAYS: No - HPI Onset: Yesterday Onset/Duration: Persistent Quality of pain: Achy Severity: Mild Pain Level: 1 Associated symptoms: Body/muscle aches, Fever, Nausea Exacerbated by: Denies Relieved by: Denies Similar symptoms previously: No Recently seen / treated by doctor: No - Related Data Allergies/Adverse Reactions: iodine [Iodine] Allergy (Severe, Verified 05/22/17 11:43) oxycodone HCl [From Percocet] Allergy (Severe, Verified 05/22/17 11:43) fish derived [Fish derived] Allergy (Verified 05/22/17 11:43) Shellfish * [Shellfish] Allergy (Verified 05/22/17 11:43) ibuprofen [Ibuprofen] Adverse Reaction (Severe, Verified 05/22/17 11:43) bleeding Past Medical History - Social History Smoking Status: Current Every Day Smoker Cigarette use (# per day): Yes Chew tobacco use (# tins/day): No Smoking Education Provided: No Frequency of alcohol use: Occasional Drug Abuse: None Family History: Arthritis, CAD, Hypertension, Malignancy, Other - Seizures Patient has suicidal ideation: No Patient has homicidal ideation: No - Past Medical History Cardiac Medical History: Reports: Hx DVT - Possible history; has undergone vena caval filter implant., Hx Hypercholesterolemia, Hx Hypertension - Resolved after bariatric surgery Denies: Hx Atrial Fibrillation, Hx Congestive Heart Failure, Hx Pulmonary Embolism Pulmonary Medical History: Reports: Hx Asthma, Hx COPD, Hx Pneumonia, Hx Sleep Apnea - Resolved after bariatric surgery Neurological Medical History: Denies: Hx Seizures Endocrine Medical History: Reports: Hx Diabetes Mellitus Type 2 - Resolved after bariatric surgery. Denies: Hx Diabetes Mellitus Type 1, Hx Hyperthyroidism, Hx Hypothyroidism Renal/ Medical History: Denies: Hx Peritoneal Dialysis GI Medical History: Reports: Hx Gastroesophageal Reflux Disease, Hx Irritable Bowel, Hx Ulcer. Denies: Hx Cirrhosis, Hx Hepatitis Musculoskeltal Medical History: Denies Hx Arthritis, Reports Hx Musculoskeletal Trauma Skin Medical History: Reports Hx Cellulitis Psychiatric Medical History: Reports: Hx Anxiety, Hx Attention Deficit Hyperactivity Disorder, Hx Depression Traumatic Medical History: Reports: Hx Fractures - 5th finger Infectious Medical History: Denies: Hx C-Diff, Hx Hepatitis, Hx MRSA Past Surgical History: Reports: Hx Abdominal Surgery - gastric bypass, Hx Bowel Surgery - hernia repair., Hx Gastric Bypass Surgery, Hx Herniorrhaphy, Other - Vena caval filter implant. History of surgery for perforated ulcer. - Immunizations Immunizations up to date: Yes Hx Diphtheria, Pertussis, Tetanus Vaccination: Yes Hx Pneumococcal Vaccination: 01/23/11 Review of Systems - Review of Systems Notes: REVIEW OF SYSTEMS: CONSTITUTIONAL : Ms. fever EENT: Admits to sore throat CARDIOVASCULAR: Denies chest pain. Denies palpitations or racing or irregular heart beat. Denies ankle edema. RESPIRATORY: Denies cough, cold, or chest congestion. Denies shortness of breath, difficulty breathing, or wheezing. GASTROINTESTINAL: Admits to nausea GENITOURINARY: Denies difficulty urinating, painful urination, burning, frequency, blood in urine, or discharge. MUSCULOSKELETAL: Admits to body aches SKIN: Denies rash, lesions or sores. HEMATOLOGIC : Denies easy bruising or bleeding. LYMPHATIC: Denies swollen, enlarged glands. NEUROLOGICAL: Denies confusion or altered mental status. Denies passing out or loss of consciousness. Denies dizziness or lightheadedness. Denies headache. Denies weakness or paralysis or loss of use of either side. Denies problems with gait or speech. Denies sensory loss, numbness, or tingling. Denies seizures. PSYCHIATRIC: Denies anxiety or stress. Denies depression, suicidal ideation, or homicidal ideation. ALL OTHER SYSTEMS REVIEWED AND NEGATIVE. Dictation was performed using [employer] voice recognition software PHYSICAL EXAMINATION: GENERAL: Well-appearing, well-nourished and in no acute distress. HEAD: Atraumatic, normocephalic. EYES: Pupils equal round and reactive to light, extraocular movements intact, sclera anicteric, conjunctiva are normal. ENT: The lateral tonsillar erythema with exudates +2 uvula midline no peritonsillar abscess noted NECK: Normal range of motion, supple without lymphadenopathy LUNGS: Breath sounds clear to auscultation bilaterally and equal. No wheezes rales or rhonchi. HEART: Regular rate and rhythm without murmurs ABDOMEN: Soft, nontender, nondistended abdomen. No guarding, no rebound. No masses appreciated. Musculoskeletal: Normal range of motion, no pitting or edema. No cyanosis. NEUROLOGICAL: Cranial nerves grossly intact. Normal speech, normal gait. Normal sensory, motor exams PSYCH: Normal mood, normal affect. SKIN: Warm, Dry, normal turgor, no rashes or lesions noted. Physical Exam - Vital signs Vitals: Temp Pulse BP Pulse Ox 99.0 F 86 118/96 H 94 05/22/17 11:52 05/22/17 11:52 05/22/17 11:52 05/22/17 11:52 Course - Re-evaluation Re-evalutation: 05/22/17 13:15 Patient has symptoms consistent with strep pharyngitis and this was confirmed with testing. He did request IM medication which was provided. Otherwise he looks well is in no distress very strict return precautions been provided After performing a Medical Screening Examination, I estimate there is LOW risk for CENTRAL CORD SYNDROME, LUDWIGS ANGINA, PERITONSILLAR ABSCESS, RETROPHARYNGEAL ABSCESS, EPIDURAL MASS LESION, SEVERE SPINAL STENOSIS, ARTERIAL DISSECTION, MENINGITIS, or ACUTE CORONARY SYNDROME, thus I consider the discharge disposition reasonable. I have reevaluated this patient multiple times and no significant life threatening changes are noted. The patient and I have discussed the diagnosis and risks, and we agree with discharging home to follow-up on an outpatient basis with the understanding that symptoms and presentations can change. We also discussed returning to the Emergency Department immediately if new or worsening symptoms occur. We have discussed the symptoms which are most concerning (e.g., saddle anesthesia, urinary or bowel incontinence or retention, changing or worsening pain) that necessitate immediate return. - Vital Signs Vital signs: Temp Pulse Resp BP Pulse Ox 99.0 F 86 118/96 H 94 05/22/17 11:52 05/22/17 11:52 05/22/17 11:52 05/22/17 11:52 Discharge - Discharge Clinical Impression: Strep pharyngitis, Body aches Fever Qualifiers: Fever type: unspecified Qualified Code(s): R50.9 - Fever, unspecified Condition: Stable Disposition: HOME, SELF-CARE Instructions: Strep Throat ([facility]) Forms: Return to Work
[2017-05-22] MEDS ORDERED: ACETAMINOPHEN 325 MG TABLET PO ONE (13:10)
[2017-05-22] MEDS ORDERED: ACETAMINOPHEN 325 MG TABLET ONE (13:10)
[2017-05-22 13:18] VITALS: BP 120/90
== END 2017-05-22 13:16 | disposition home or self-care (01) ==
LOC: ER 11:42
DX: J02.0 Streptococcal pharyngitis (principal); R11.0 Nausea; R50.9 Fever, unspecified; M79.1 Myalgia; F17.210 Nicotine dependence, cigarettes, uncomplicated; Z88.5 Allergy status to narcotic agent; Z91.013 Allergy to seafood; Z98.84 Bariatric surgery status
CPT/HCPCS: 99283; 96372; 87880; 87804; J0561

== ENCOUNTER 2017-12-12 23:36 | Emergency (ER) | payer SELFPAY ==
[2017-12-13] MEDS ORDERED: IPRATROPIUM/ALBUTEROL 0.5-2.5 MG/3 ML AMPUL NEB ONE (01:28)
[2017-12-13] MEDS ORDERED: PREDNISONE 20 MG TABLET PO ONE (01:28)
[2017-12-13] MEDS ORDERED: ALBUTEROL SULFATE 0.083% NEB 2.5 MG/3 ML AMPUL NEB ONE ×2 (01:28→03:26)
--- NOTE | 2017-12-13 02:04 | ER Document Report ---
ED Respiratory Problem - General Chief Complaint: Asthma Exacerbation Stated Complaint: DIFFICULTY BREATHING Time Seen by Provider: 12/13/17 00:51 Mode of Arrival: Ambulatory Information source: Patient Notes: Patient is an otherwise healthy 27-year-old male who presents with chief complaint of wheezing. Patient reports history of asthma and states he ran out of his albuterol inhaler. Patient denies use of any daily inhaled corticosteroid. Patient reports he has flareups of his asthma every couple of months. Patient denies any fever or any other symptoms. TRAVEL OUTSIDE OF THE [place] IN LAST 30 DAYS: No - Related Data Allergies/Adverse Reactions: iodine [Iodine] Allergy (Severe, Verified 05/22/17 11:43) oxycodone HCl [From Percocet] Allergy (Severe, Verified 05/22/17 11:43) fish derived [Fish derived] Allergy (Verified 05/22/17 11:43) Shellfish * [Shellfish] Allergy (Verified 05/22/17 11:43) ibuprofen [Ibuprofen] Adverse Reaction (Severe, Verified 05/22/17 11:43) bleeding Past Medical History - General Information source: Patient - Social History Smoking Status: Current Every Day Smoker Frequency of alcohol use: Occasional Drug Abuse: None Family History: Arthritis, CAD, Hypertension, Malignancy, Other - Seizures Patient has suicidal ideation: No Patient has homicidal ideation: No - Past Medical History Cardiac Medical History: Reports: Hx DVT - Possible history; has undergone vena caval filter implant., Hx Hypercholesterolemia, Hx Hypertension - Resolved after bariatric surgery Denies: Hx Atrial Fibrillation, Hx Congestive Heart Failure, Hx Pulmonary Embolism Pulmonary Medical History: Reports: Hx Asthma, Hx COPD, Hx Pneumonia, Hx Sleep Apnea - Resolved after bariatric surgery Neurological Medical History: Denies: Hx Seizures Endocrine Medical History: Reports: Hx Diabetes Mellitus Type 2 - Resolved after bariatric surgery. Denies: Hx Diabetes Mellitus Type 1, Hx Hyperthyroidism, Hx Hypothyroidism Renal/ Medical History: Denies: Hx Peritoneal Dialysis GI Medical History: Reports: Hx Gastroesophageal Reflux Disease, Hx Irritable Bowel, Hx Ulcer. Denies: Hx Cirrhosis, Hx Hepatitis Musculoskeletal Medical History: Denies Hx Arthritis, Reports Hx Musculoskeletal Trauma Skin Medical History: Reports Hx Cellulitis Psychiatric Medical History: Reports: Hx Anxiety, Hx Attention Deficit Hyperactivity Disorder, Hx Depression Traumatic Medical History: Reports: Hx Fractures - 5th finger Infectious Medical History: Denies: Hx C-Diff, Hx Hepatitis, Hx MRSA Past Surgical History: Reports: Hx Abdominal Surgery - gastric bypass, Hx Bowel Surgery - hernia repair., Hx Gastric Bypass Surgery, Hx Herniorrhaphy, Other - Vena caval filter implant. History of surgery for perforated ulcer. - Immunizations Immunizations up to date: Yes Hx Diphtheria, Pertussis, Tetanus Vaccination: Yes Hx Pneumococcal Vaccination: 01/23/11 Review of Systems - Review of Systems Constitutional: No symptoms reported EENT: No symptoms reported Cardiovascular: No symptoms reported Respiratory: See HPI Gastrointestinal: No symptoms reported Genitourinary: No symptoms reported Male Genitourinary: No symptoms reported Musculoskeletal: No symptoms reported Skin: No symptoms reported Hematologic/Lymphatic: No symptoms reported Neurological/Psychological: No symptoms reported Physical Exam - Vital signs Vitals: Temp Pulse Resp BP Pulse Ox 98.5 F 74 18 133/76 H 98 12/12/17 23:46 12/12/17 23:46 12/12/17 23:46 12/12/17 23:46 12/12/17 23:46 - Notes Notes: PHYSICAL EXAMINATION: GENERAL: Well-appearing, well-nourished and in no acute distress. HEAD: Atraumatic, normocephalic. EYES: Pupils equal round and reactive to light, extraocular movements intact, sclera anicteric, conjunctiva are normal. ENT: Nares patent, oropharynx clear without exudates. Moist mucous membranes. NECK: Normal range of motion, supple without lymphadenopathy LUNGS: Breath sounds clear to auscultation bilaterally and equal. Expiratory wheezing noted bilaterally. HEART: Regular rate and rhythm without murmurs ABDOMEN: Soft, nontender, nondistended abdomen. No guarding, no rebound. No masses appreciated. Musculoskeletal: Normal range of motion, no pitting or edema. No cyanosis. NEUROLOGICAL: Cranial nerves grossly intact. Normal speech, normal gait. Normal sensory, motor exams PSYCH: Normal mood, normal affect. SKIN: Warm, Dry, normal turgor, no rashes or lesions noted. Course - Re-evaluation Re-evalutation: 12/13/17 02:55 Patient reports resolution of his symptoms, wheezing has resolved. Patient will be discharged home in stable condition, will be provided with an albuterol inhaler to take home as well as prescriptions for prednisone, albuterol inhaler and albuterol for his nebulizer machine. When nurse attempting to discharge patient patient now requesting a strep test. Patient's throat is non-erythematous and without exudates. Will send rapid strep although I feel it is unlikely that this patient has strep throat. Rapid strep is negative, patient will be discharged home at this time. - Vital Signs Vital signs: Temp Pulse Resp BP Pulse Ox 98.5 F 83 16 121/76 97 12/13/17 02:52 12/13/17 02:52 12/13/17 02:52 12/13/17 02:52 12/13/17 02:52 Discharge - Discharge Clinical Impression: Asthma exacerbation Qualifiers: Asthma severity: moderate Asthma persistence: unspecified Qualified Code(s): J45.901 - Unspecified asthma with (acute) exacerbation Condition: Stable Disposition: HOME, SELF-CARE Additional Instructions: Asthma You have been diagnosed as having asthma. This is a condition where there is episodic tightness in the bronchial tubes. Allergies, infections, and polluted or cold air may be contributing factors. Emergency treatment of a severe asthma attack may include adrenaline shots , or bronchodilator aerosol. You may feel lightheaded, have a decreased exercise tolerance and a rapid pulse for an hour or two. Rest and get plenty of fluids. Home treatment of asthma requires bronchodilator drugs. These can be administered by injection, inhalation, or by mouth. Antibiotics and corticosteroids may be required for some patients. You should avoid chemical fumes, dusts, pollens, and exercising in very cold or dry air. If you smoke, stop!! If you develop a fever, increased wheezing, chest pain, or severe shortness of breath, you should contact the doctor immediately Prescriptions: Albuterol Sulfate [Proair HFA Inhalation Aerosol 8.5 gm MDI] 2 puff IH Q4H PRN # 1 mdi PRN Reason: Albuterol Sulfate [Albuterol Sulfate 5mg/1 mL] 5 mg NEB Q4 PRN #30 ml PRN Reason: Prednisone [Deltasone 20 mg Tablet] 3 tab PO DAILY 5 Days #15 tablet
[2017-12-13] MEDS ORDERED: ALBUTEROL SULFATE HFA (90 MCG/PUFF) 8 GM MDI (1 MDI/ER DISP) IH ONE (02:37)
[2017-12-13 02:53] VITALS: BP 121/76
== END 2017-12-13 03:36 | disposition home or self-care (01) ==
LOC: ER 23:36
DX: J45.901 Unspecified asthma with (acute) exacerbation (principal); T48.6X6A Underdosing of antiasthmatics, initial encounter; Z91.128 Patient's intentional underdosing of medication regimen for other reason; Z91.14 Patient's other noncompliance with medication regimen; J44.9 Chronic obstructive pulmonary disease, unspecified; F17.200 Nicotine dependence, unspecified, uncomplicated; Z98.84 Bariatric surgery status; Z88.5 Allergy status to narcotic agent; Z91.013 Allergy to seafood; Z87.01 Personal history of pneumonia (recurrent)
CPT/HCPCS: 94640 ×2; 99285; 87070; 87880; J7512; J3490; J7620

== ENCOUNTER 2018-03-19 00:06 | Emergency (ER) | payer SELFPAY ==
[2018-03-19] MEDS ORDERED: IPRATROPIUM/ALBUTEROL 0.5-2.5 MG/3 ML AMPUL NEB ONE ×2 (01:07→01:47)
--- NOTE | 2018-03-19 01:29 | ER Document Report ---
ED General - General Chief Complaint: Cold Symptoms Stated Complaint: COLD SYMPTOMS Time Seen by Provider: 03/19/18 00:37 Notes: Patient is a 27-year-old male who presents to the emergency department with chief complaints of a cough and wheezing. He does have history of asthma. He states he has been having these symptoms for the past week. His cough is productive with clear to mild yellow sputum. He has been taking over-the- counter cold medications and home albuterol nebulizer treatments to help with his symptoms, but has had no relief. Other medical history includes gastric bypass and pneumonia. He is a current everyday smoker. TRAVEL OUTSIDE OF THE [place] IN LAST 30 DAYS: No - Related Data Allergies/Adverse Reactions: iodine [Iodine] Allergy (Severe, Verified 03/19/18 00:07) oxycodone HCl [From Percocet] Allergy (Severe, Verified 03/19/18 00:07) fish derived [Fish derived] Allergy (Verified 03/19/18 00:07) Shellfish * [Shellfish] Allergy (Verified 03/19/18 00:07) ibuprofen [Ibuprofen] Adverse Reaction (Severe, Verified 03/19/18 00:07) bleeding Past Medical History - General Information source: Patient - Social History Smoking Status: Current Every Day Smoker Frequency of alcohol use: Rare Drug Abuse: None Family History: Arthritis, CAD, Hypertension, Malignancy, Other - Seizures Patient has suicidal ideation: No Patient has homicidal ideation: No - Past Medical History Cardiac Medical History: Reports: Hx DVT - Possible history; has undergone vena caval filter implant., Hx Hypercholesterolemia, Hx Hypertension - Resolved after bariatric surgery Denies: Hx Atrial Fibrillation, Hx Congestive Heart Failure, Hx Pulmonary Embolism Pulmonary Medical History: Reports: Hx Asthma, Hx COPD, Hx Pneumonia, Hx Sleep Apnea - Resolved after bariatric surgery Neurological Medical History: Denies: Hx Seizures Endocrine Medical History: Reports: Hx Diabetes Mellitus Type 2 - Resolved after bariatric surgery. Denies: Hx Diabetes Mellitus Type 1, Hx Hyperthyroidism, Hx Hypothyroidism Renal/ Medical History: Denies: Hx Peritoneal Dialysis GI Medical History: Reports: Hx Gastroesophageal Reflux Disease, Hx Irritable Bowel, Hx Ulcer. Denies: Hx Cirrhosis, Hx Hepatitis Musculoskeletal Medical History: Denies Hx Arthritis, Reports Hx Musculoskeletal Trauma Skin Medical History: Reports Hx Cellulitis Psychiatric Medical History: Reports: Hx Anxiety, Hx Attention Deficit Hyperactivity Disorder, Hx Depression Traumatic Medical History: Reports: Hx Fractures - 5th finger Infectious Medical History: Denies: Hx C-Diff, Hx Hepatitis, Hx MRSA Past Surgical History: Reports: Hx Abdominal Surgery - gastric bypass, Hx Bowel Surgery - hernia repair., Hx Gastric Bypass Surgery, Hx Herniorrhaphy, Other - Vena caval filter implant. History of surgery for perforated ulcer. - Immunizations Immunizations up to date: Yes Hx Diphtheria, Pertussis, Tetanus Vaccination: Yes Hx Pneumococcal Vaccination: 01/23/11 Review of Systems - Review of Systems Notes: REVIEW OF SYSTEMS: CONSTITUTIONAL : Denies recent illness. Denies recent unintentional weight loss. Denies fever, chills, or sweats. EENT: Denies eye, ear, throat, or mouth pain, discharge, or symptoms. Denies nasal or sinus congestion. CARDIOVASCULAR: Denies chest pain. RESPIRATORY: See HPI GASTROINTESTINAL: Denies nausea, vomiting, and diarrhea. Denies abdominal pain. Denies constipation. GENITOURINARY: Denies difficulty urinating, burning, blood in urine, urgency or frequency. MUSCULOSKELETAL: Denies neck and back pain. Denies joint pain or swelling. SKIN: Denies rash, itchiness, or lesions HEMATOLOGIC : Denies easy bruising or bleeding. LYMPHATIC: Denies swollen, painful, enlarged glands. NEUROLOGICAL: Denies no numbness or tingling denies weakness. Denies headache. Denies altered mental status. Denies alteration in speech. PSYCHIATRIC: Denies stress, anxiety, alteration in sleep patterns, or depression. All other systems reviewed and negative. Physical Exam - Vital signs Vitals: Temp Pulse Resp BP Pulse Ox 98.4 F 94 20 155/68 H 96 03/19/18 00:07 03/19/18 00:07 03/19/18 00:07 03/19/18 00:07 03/19/18 00:07 - Notes Notes: PHYSICAL EXAMINATION: GENERAL: Appears well, healthy, well-nourished, no acute distress. HEAD: Normocephalic, atraumatic. EYES: PERRL, conjunctiva normal, all extraocular movements intact, sclera nonicteric ENT: Moist mucous membranes. Clear nasal drainage. Erythema to oropharynx. NECK: Supple, no noticeable swelling, redness, rash. Normal range of motion. LUNGS: Wheezes bilaterally. Normal rate and depth of breathing. CARDIOVASCULAR: S1-S2, regular rate, regular rhythm. Radial pulses 2+, normal. ABDOMEN: Normoactive bowel sounds. Soft, nontender, no guarding, no rebound tenderness, and no masses palpated. EXTREMITIES: Normal strength and range of motion, no pitting or edema. No cyanosis. NEUROLOGICAL: Moves all extremities upon command. Strength 5/5 in all extremities. PSYCH: Normal mood, normal affect. SKIN: Warm, dry. No rash, lesions, ulcerations noted. Normal skin turgor. Course - Re-evaluation Re-evalutation: 03/19/18 01:48 I have reassessed the patient and still has expiratory wheezes in the right upper lobe, but has markedly improved breath sounds in other lung gregory. I will order 1 more DuoNeb treatment to help clear his wheezing in his right upper lobe. Patient was educated on smoking cessation. He verbalized understanding and states he needs to quit smoking. 03/19/18 02:25 I have reassessed the patient and his lung sounds are clear. His chest x-ray is clear. I have updated him on his chest x-ray results and told him he does not have pneumonia. I gave him his discharge instructions and he verbalized understanding. He will go home with Tessalon Perles to help with his cough. He was given instructions to use Tylenol for his pain. - Vital Signs Vital signs: Temp Pulse Resp BP Pulse Ox 98.4 F 95 18 108/66 96 03/19/18 02:51 03/19/18 02:51 03/19/18 02:51 03/19/18 02:51 03/19/18 02:51 Discharge - Discharge Clinical Impression: Cough Asthma Qualifiers: Asthma severity: mild Asthma persistence: intermittent Asthma complication type : with acute exacerbation Qualified Code(s): J45.21 - Mild intermittent asthma with (acute) exacerbation Condition: Stable Disposition: HOME, SELF-CARE Additional Instructions: You have been seen in the emergency department for a cough and asthma. You were treated with breathing treatments here in the emergency department. Your chest x-ray was clear and does not show pneumonia. You have been sent home with a prescription for Tessalon Perles to help with your cough, use them as directed. You may take Tylenol 1000 mg every 6 hours as needed for the pain, as we have discussed. If you develop shortness of breath, difficulty breathing , or any symptoms that are worrisome to you, please return to the emergency department. Prescriptions: Benzonatate [Tessalon Perles 100 mg Capsule] 100 mg PO Q8HP PRN #40 capsule PRN Reason: Ipratropium/Albuterol Sulfate [Duoneb 3 ml Ampul] 3 ml NEB [id number] PRN #20 vial.neb PRN Reason:
--- NOTE | 2018-03-19 02:02 | RADIOLOGY REPORT (SQ) ---
Chest single view on 03/19/2018 at 1:48 AM CLINICAL INDICATION: Cough COMPARISON: 02/17/2017 FINDINGS: The lungs are clear. Cardiac, hilar and mediastinal contours are within normal limits. Pulmonary vascularity is within normal limits. No bony abnormality is noted. IMPRESSION: No active disease.
[2018-03-19] MEDS ORDERED: DEXAMETHASONE SOD PHOS INJ 10 MG/1 ML VIAL IM ONE (02:15)
[2018-03-19 02:57] VITALS: BP 108/66
== END 2018-03-19 02:58 | disposition home or self-care (01) ==
LOC: ER 00:06
DX: J45.21 Mild intermittent asthma with (acute) exacerbation (principal); J44.9 Chronic obstructive pulmonary disease, unspecified; R05 Cough; F17.200 Nicotine dependence, unspecified, uncomplicated; Z87.01 Personal history of pneumonia (recurrent); Z98.84 Bariatric surgery status; Z88.5 Allergy status to narcotic agent; Z91.013 Allergy to seafood
CPT/HCPCS: 94640 ×2; 99283; 96372; 71045; J1100; J7620

== ENCOUNTER 2018-03-21 12:16 | Emergency (ER) | payer SELFPAY ==
[2018-03-21] MEDS ORDERED: IPRATROPIUM/ALBUTEROL 0.5-2.5 MG/3 ML AMPUL NEB ONE (13:37)
[2018-03-21] MEDS ORDERED: PREDNISONE 20 MG TABLET PO ONE (13:37)
--- NOTE | 2018-03-21 13:48 | ER Document Report ---
HPI - HPI Patient complains to provider of: Cough Time Seen by Provider: 03/21/18 13:14 Onset/Duration: Persistent Quality of pain: Achy Pain Level: 5 Context: Patient presents complaining of cough for the past 1-2 weeks and is concerned about an asthma flare. Patient states he has been wheezing for the past week. Patient was here 2 days ago for similar complaint and states he is not better after using his nebulizer treatments. Patient denies any fever. Associated Symptoms: Nonproductive cough, Shortness of breath. denies: Fever, Vomiting Exacerbated by: Denies Relieved by: Denies Similar symptoms previously: Yes Recently seen / treated by doctor: Yes - ROS ROS below otherwise negative: Yes Systems Reviewed and Negative: Yes All other systems reviewed and negative - CONSTITUTIONAL Constitutional: DENIES: Fever, Chills - EENT EENT: DENIES: Sore Throat, Congestion - CARDIOVASCULAR Cardiovascular: DENIES: Chest pain - RESPIRATORY Respiratory: REPORTS: Coughing. DENIES: Trouble Breathing - GASTROINTESTINAL Gastrointestinal: DENIES: Nausea, Patient vomiting - MUSCULOSKELETAL Musculoskeletal: DENIES: Back Pain - DERM Skin Color: Normal Skin Problems: None Past Medical History - General Information source: Patient - Social History Smoking Status: Current Every Day Smoker Smoking Education Provided: Yes Frequency of alcohol use: None Drug Abuse: None Occupation: billing services manager Family History: Reviewed & Not Pertinent, Arthritis, CAD, Hypertension, Malignancy, Other - Seizures - Past Medical History Cardiac Medical History: Reports: Hx DVT - Possible history; has undergone vena caval filter implant., Hx Hypercholesterolemia, Hx Hypertension - Resolved after bariatric surgery Denies: Hx Atrial Fibrillation, Hx Congestive Heart Failure, Hx Pulmonary Embolism Pulmonary Medical History: Reports: Hx Asthma, Hx COPD, Hx Pneumonia, Hx Sleep Apnea - Resolved after bariatric surgery Neurological Medical History: Denies: Hx Seizures Endocrine Medical History: Reports: Hx Diabetes Mellitus Type 2 - Resolved after bariatric surgery. Denies: Hx Diabetes Mellitus Type 1, Hx Hyperthyroidism, Hx Hypothyroidism Renal/ Medical History: Denies: Hx Peritoneal Dialysis GI Medical History: Reports: Hx Gastroesophageal Reflux Disease, Hx Irritable Bowel, Hx Ulcer. Denies: Hx Cirrhosis, Hx Hepatitis Musculoskeletal Medical History: Denies Hx Arthritis, Reports Hx Musculoskeletal Trauma Skin Medical History: Reports Hx Cellulitis Psychiatric Medical History: Reports: Hx Anxiety, Hx Attention Deficit Hyperactivity Disorder, Hx Depression Traumatic Medical History: Reports: Hx Fractures - 5th finger Infectious Medical History: Denies: Hx C-Diff, Hx Hepatitis, Hx MRSA Past Surgical History: Reports: Hx Abdominal Surgery - gastric bypass, Hx Bowel Surgery - hernia repair., Hx Gastric Bypass Surgery, Hx Herniorrhaphy, Other - Vena caval filter implant. History of surgery for perforated ulcer. - Immunizations Immunizations up to date: Yes Hx Diphtheria, Pertussis, Tetanus Vaccination: Yes Hx Pneumococcal Vaccination: 01/23/11 Vertical Provider Document - CONSTITUTIONAL Agree With Documented VS: Yes Exam Limitations: No Limitations General Appearance: WD/WN, No Apparent Distress - INFECTION CONTROL TRAVEL OUTSIDE OF THE [place] IN LAST 30 DAYS: No - HEENT HEENT: Atraumatic, Normocephalic, Pharyngeal Erythema. negative: Pharyngeal Exudate, Pharyngeal Tenderness - NECK Neck: Normal Inspection, Supple. negative: Lymphadenopathy-Left, Lymphadenopathy-Right - RESPIRATORY Respiratory: No Respiratory Distress, Chest Non-Tender, Wheezing - CARDIOVASCULAR Cardiovascular: Regular Rate, Regular Rhythm, No Murmur. negative: Tachycardia - BACK Back: Normal Inspection - MUSCULOSKELETAL/EXTREMETIES Musculoskeletal/Extremeties: MAEW, FROM, Non-Tender - NEURO Level of Consciousness: Awake, Alert, Appropriate Motor/Sensory: No Motor Deficit - DERM Integumentary: Warm, Dry, No Rash Course - Re-evaluation Re-evalutation: 03/21/18 14:52 Patient's respirations even and unlabored, patient nontoxic in appearance. No concern for pneumonia or pneumothorax. Will add steroid coverage for patient in addition to his nebulizers that he has been using at home. - Vital Signs Vital signs: Temp Pulse Resp BP Pulse Ox 97.8 F 95 18 111/81 98 03/21/18 12:31 03/21/18 12:31 03/21/18 12:31 03/21/18 12:31 03/21/18 12:31 - Diagnostic Test Radiology reviewed: Reports reviewed Discharge - Discharge Clinical Impression: Tobacco dependency, Wheezing Asthma exacerbation Qualifiers: Asthma severity: unspecified severity Asthma persistence: unspecified Qualified Code(s): J45.901 - Unspecified asthma with (acute) exacerbation Condition: Stable Disposition: HOME, SELF-CARE Instructions: Asthma ([facility]), Steroid Medication Additional Instructions: Return immediately for any new or worsening symptoms Followup with your primary care provider, call tomorrow to make a followup appointment Continue to use your nebulizer that you have at home as prescribed Prescriptions: Albuterol Sulfate [Proair Hfa Inhalation Aerosol 8.5 gm Mdi] 2 puff IH Q4 PRN # 1 mdi PRN Reason: Prednisone [Deltasone 20 mg Tablet] 3 tab PO DAILY 4 Days tablet Forms: Smoking Cessation Education, Return to Work Referrals: [facility] [Provider Group] - Follow up as needed
[2018-03-21] MEDS: ALBUTEROL SULFATE 0.083% NEB 2.5 MG/3 ML AMPUL NEB SCH ×2 (14:05→14:06)
--- NOTE | 2018-03-21 14:20 | RADIOLOGY REPORT (SQ) ---
EXAM DESCRIPTION: CHEST 2 VIEWS COMPLETED DATE/TIME: 03/21/2018 1:56 pm REASON FOR STUDY: cough COMPARISON: Chest films 03/19/2018, 02/17/2017 EXAM PARAMETERS: NUMBER OF VIEWS: two views TECHNIQUE: Digital Frontal and Lateral radiographic views of the chest acquired. RADIATION DOSE: NA LIMITATIONS: none FINDINGS: LUNGS AND PLEURA: No opacities, masses or pneumothorax. No pleural effusion. MEDIASTINUM AND HILAR STRUCTURES: No masses or contour abnormalities. HEART AND VASCULAR STRUCTURES: Heart normal size. No evidence for failure. BONES: No acute findings. HARDWARE: None in the chest. OTHER: No other significant finding. IMPRESSION: NO ACUTE RADIOGRAPHIC FINDING IN THE CHEST. TECHNICAL DOCUMENTATION: JOB ID: [id number] [employer]- All Rights Reserved Reading location - IP/workstation name: [email or web address]
[2018-03-21 14:42] VITALS: BP 110/60
== END 2018-03-21 15:06 | disposition home or self-care (01) ==
LOC: ER 12:16
DX: J45.901 Unspecified asthma with (acute) exacerbation (principal); R05 Cough; R06.02 Shortness of breath; F17.200 Nicotine dependence, unspecified, uncomplicated; E11.9 Type 2 diabetes mellitus without complications; Z86.718 Personal history of other venous thrombosis and embolism; Z98.84 Bariatric surgery status
CPT/HCPCS: 94640 ×2; 99283; 71046; J7512; J7620

== ENCOUNTER 2018-03-23 21:27 | Emergency (ER) | payer SELFPAY ==
[2018-03-23] MEDS ORDERED: IPRATROPIUM/ALBUTEROL 0.5-2.5 MG/3 ML AMPUL NEB ONE (22:43)
--- NOTE | 2018-03-23 23:15 | RADIOLOGY REPORT (SQ) ---
EXAM DESCRIPTION: XR CHEST 2 VIEWS COMPLETED DATE/TME: 03/23/2018 22:43 CLINICAL HISTORY: 27 years, Male, cough wheezing fever COMPARISON: 03/21/2018 chest x-ray NUMBER OF VIEWS: 2 TECHNIQUE: Frontal and lateral views of the chest LIMITATIONS: None. FINDINGS: Heart size is normal. Lungs are clear. No pneumothorax. IMPRESSION: Negative chest copyright 2010 [employer]- All Rights Reserved
--- NOTE | 2018-03-23 23:52 | ER Document Report ---
ED Respiratory Problem - General Chief Complaint: Shortness Of Breath Stated Complaint: CONGESTION, RECHECK FROM LAST VISIT Time Seen by Provider: 03/23/18 21:52 Mode of Arrival: Ambulatory Information source: Patient Notes: 27-year-old male presented to ED for cough cold congestion shortness of breath. He states he has been seen and given prescription for prednisone and albuterol and DuoNeb. He states he did not fill the prednisone until today just before coming to the emergency room because he lost the prescription. He states he found this afternoon and filled it and took it just before coming to the emergency room. He states she has been trying the albuterol with no relief but he is now has the DuoNeb medicine that he can take at home. Patient states she has a history of asthma. Patient also states she is continuing to smoke but has decreased the number of cigarettes he is smoking. TRAVEL OUTSIDE OF THE [place] IN LAST 30 DAYS: No - HPI Patient complains to provider of: Asthma, Cough, Short of breath Onset: Other - 1-2 weeks not getting better was seen on the and 21 March for the same Duration: Continuous Initiating Event: URI Quality of pain: Other - Tightness Severity: Moderate Pain Level: 4 Context: Hx asthma, Smoker Short of Breath: Mild Cough: Nonproductive At home treatment: Bronchodilators, Oral steroids Associated symptoms: Congestion, Cough, PND, Runny nose, Sinus pain/pressure, Short of breath, Wheezing Similar symptoms previously: Yes Recently seen / treated by doctor: Yes - Related Data Allergies/Adverse Reactions: iodine [Iodine] Allergy (Severe, Verified 03/19/18 00:07) oxycodone HCl [From Percocet] Allergy (Severe, Verified 03/19/18 00:07) fish derived [Fish derived] Allergy (Verified 03/19/18 00:07) Shellfish * [Shellfish] Allergy (Verified 03/19/18 00:07) ibuprofen [Ibuprofen] Adverse Reaction (Severe, Verified 03/19/18 00:07) bleeding Past Medical History - General Information source: Patient - Social History Smoking Status: Current Every Day Smoker Cigarette use (# per day): Yes - States he is cut way back but he is still smoking Chew tobacco use (# tins/day): No Smoking Education Provided: Yes - 4 minutes Frequency of alcohol use: None Drug Abuse: None Lives with: Family Family History: Reviewed & Not Pertinent, Arthritis, CAD, Hypertension, Malignancy, Other - Seizures Patient has suicidal ideation: No Patient has homicidal ideation: No - Past Medical History Cardiac Medical History: Reports: Hx DVT - Possible history; has undergone vena caval filter implant., Hx Hypercholesterolemia, Hx Hypertension - Resolved after bariatric surgery Pulmonary Medical History: Reports: Hx Asthma, Hx COPD, Hx Pneumonia, Hx Sleep Apnea - Resolved after bariatric surgery EENT Medical History: Reports: None Neurological Medical History: Reports: None Endocrine Medical History: Reports: Hx Diabetes Mellitus Type 2 - Resolved after bariatric surgery Renal/ Medical History: Reports: None Malignancy Medical History: Reports None GI Medical History: Reports: Hx Gastroesophageal Reflux Disease, Hx Irritable Bowel, Hx Ulcer Musculoskeletal Medical History: Reports Hx Musculoskeletal Trauma Skin Medical History: Reports Hx Cellulitis Psychiatric Medical History: Reports: Hx Anxiety, Hx Attention Deficit Hyperactivity Disorder, Hx Depression Traumatic Medical History: Reports: Hx Fractures - 5th finger Infectious Medical History: Reports: None Past Surgical History: Reports: Hx Abdominal Surgery - gastric bypass, Hx Bowel Surgery - hernia repair., Hx Gastric Bypass Surgery, Hx Herniorrhaphy, Other - Vena caval filter implant. History of surgery for perforated ulcer. - Immunizations Immunizations up to date: Yes Hx Diphtheria, Pertussis, Tetanus Vaccination: Yes Hx Pneumococcal Vaccination: 01/23/11 Review of Systems - Review of Systems Notes: REVIEW OF SYSTEMS: CONSTITUTIONAL : States she has had cough cold congestion for 1-2 weeks with wheezing and shortness of breath. States she had a fever yesterday. EENT: Nasal drainage with sometimes sore throat. CARDIOVASCULAR: Denies chest pain. Denies palpitations or racing or irregular heart beat. Denies ankle edema. RESPIRATORY: Denies cough, cold, or chest congestion. Denies shortness of breath, difficulty breathing, or wheezing. GASTROINTESTINAL: Denies abdominal pain or distention. Denies nausea, vomiting , or diarrhea. Denies blood in vomitus, stools, or per rectum. Denies black, tarry stools. Denies constipation. GENITOURINARY: Denies difficulty urinating, painful urination, burning, frequency, blood in urine, or discharge. MUSCULOSKELETAL: Denies back or neck pain or stiffness. Denies joint pain or swelling. SKIN: Denies rash, lesions or sores. HEMATOLOGIC : Denies easy bruising or bleeding. LYMPHATIC: Denies swollen, enlarged glands. NEUROLOGICAL: Denies confusion or altered mental status. Denies passing out or loss of consciousness. Denies dizziness or lightheadedness. Denies headache. Denies weakness or paralysis or loss of use of either side. Denies problems with gait or speech. Denies sensory loss, numbness, or tingling. Denies seizures. PSYCHIATRIC: Denies anxiety or stress. Denies depression, suicidal ideation, or homicidal ideation. ALL OTHER SYSTEMS REVIEWED AND NEGATIVE. Dictation was performed using [employer] voice recognition software PHYSICAL EXAMINATION: GENERAL: Well-appearing, well-nourished and in no acute distress. HEAD: Atraumatic, normocephalic. EYES: Pupils equal round and reactive to light, extraocular movements intact, sclera anicteric, conjunctiva are normal. ENT: Nares patent, oropharynx clear without exudates. Moist mucous membranes. NECK: Normal range of motion, supple without lymphadenopathy LUNGS: Lungs contain wheezes and rhonchi. Respirations regular and unlabored HEART: Regular rate and rhythm without murmurs ABDOMEN: Soft, nontender, nondistended abdomen. No guarding, no rebound. No masses appreciated. Musculoskeletal: Normal range of motion, no pitting or edema. No cyanosis. NEUROLOGICAL: Cranial nerves grossly intact. Normal speech, normal gait. Normal sensory, motor exams PSYCH: Normal mood, normal affect. SKIN: Warm, Dry, normal turgor, no rashes or lesions noted. Physical Exam - Vital signs Vitals: Temp Pulse Resp BP Pulse Ox 98.3 F 81 16 142/69 H 96 03/23/18 21:36 03/23/18 21:36 03/23/18 21:36 03/23/18 21:36 03/23/18 21:36 Course - Vital Signs Vital signs: Temp Pulse Resp BP Pulse Ox 98.2 F 73 20 131/65 H 96 03/24/18 00:00 03/24/18 00:00 03/24/18 00:00 03/24/18 00:00 03/24/18 00:00 - Diagnostic Test Radiology reviewed: Image reviewed, Reports reviewed Discharge - Discharge Clinical Impression: Wheezing URI (upper respiratory infection) Qualifiers: URI type: unspecified URI Qualified Code(s): J06.9 - Acute upper respiratory infection, unspecified Condition: Stable Disposition: HOME, SELF-CARE Instructions: Family Physicians / Practices Additional Instructions: UPPER RESPIRATORY ILLNESS: You have a viral infection of the respiratory passages -- a "cold." This common infection causes nasal congestion, drainage, and often sore throat and cough. It is highly contagious. The disease usually lasts about 10 to 14 days. There is no "cure" for the viral infection -- it must run its course. If there is a complication, such as bacterial infection in the nose, sinuses, middle ear, or bronchial tubes, antibiotics may be required. The antibiotics won't affect the virus. Drink plenty of fluids. A humidifier may help. An expectorant medication or decongestant may make you more comfortable. Use acetaminophen or ibuprofen for fever or aches. See the doctor if fever persists over two days, if there is any significant worsening of your symptoms, or if you simply fail to improve as expected. BRONCHOSPASM: You have tightness in the bronchial tubes, called bronchospasm. This often occurs with bronchial infections. Allergies, inhaled chemicals, and polluted or cold air can also provoke bronchospasm. It's more likely in patients with asthma in the family. Emergency treatment of bronchospasm may include adrenaline shots or bronchodilator aerosol. You may feel lightheaded and have a rapid pulse for an hour or two. Rest and get plenty of fluids. At home, we'll treat you with a bronchodilator inhaler. Antibiotics and corticosteroids may be required for some patients. Until you recover, avoid chemical fumes, dusts, pollens, and exercising in very cold or dry air. If you smoke, stop now!! If you develop a fever, increased wheezing, chest pain, or severe shortness of breath, you should contact the doctor immediately. COUGH-SUPPRESSANT & EXPECTORANT MEDICATION: You are to use a cough medication as needed for relief of symptoms. This medicine is a combination of an expectorant (to make the mucous thinner and more easily "coughed up") and a cough suppressant (to reduce the frequency of coughing). The cough-suppressant medicine is related to narcotics. You may experience mild nausea and sleepiness. Some patients who are very sensitive to narcotics may have stomach pain from this medicine. Taking the medicine with food reduces these side effects. Do not drive or work with machinery until you know how this medicine affects you. The expectorant should have no side effects. Iodine-containing expectorants (such as organidin) should not be taken by persons with active thyroid disease unless approved by your doctor. Call the doctor if you develop shortness of breath, hives, rash, itching, lightheadedness, or severe nausea and vomiting. INHALED BRONCHODILATORS: You have received a treatment of and/or prescription for an inhaled bronchodilator -- a medication which stimulates the airways in the lung to dilate. This improves the flow of air in asthma, bronchitis, and emphysema. These medicines have some similarity to adrenaline, and can cause similar side effects: shakiness, racing heart, and a sense of nervousness. These side effects decrease with time. Contact your doctor if these side effects are severe. Do not over-use the medicine. Too-frequent use of the inhaler may make it ineffective. Call your doctor if the inhaler is not controlling your symptoms at the prescribed doses. USE OF ACETAMINOPHEN (Tylenol): Acetaminophen may be taken for pain relief or fever control. It's much safer than aspirin, offering a wider range of "safe" dosages. It is safe during . Some brand names are Tylenol, Panadol, Datril, Anacin 3, Tempra, and Liquiprin. Acetaminophen can be repeated every four hours. The following are maximum recommended dosages: >89 pounds or adults 650 mg to 900 mg Acetaminophen can be repeated every four hours. Maximum dose not to exceed 4000 mg a day. SMOKING: If you smoke, you should stop smoking. The tar and chemicals in cigarette smoke are harmful. Smoking has been shown to cause: emphysema chronic bronchitis lung cancer mouth and throat cancer stomach and pancreas cancer premature aging defects In addition, smoking increases ear and lung infections in children of smokers. FOLLOW-UP CARE: If you have been referred to a physician for follow-up care, call the physician s office for an appointment as you were instructed or within the next two days. If you experience worsening or a significant change in your symptoms, notify the physician immediately or return to the Emergency Department at any time for re-evaluation. Forms: Elevated Blood Pressure, Return to Work
[2018-03-24 00:01] VITALS: BP 131/65
== END 2018-03-24 | disposition home or self-care (01) ==
LOC: ER 21:27
DX: J06.9 Acute upper respiratory infection, unspecified (principal); R06.02 Shortness of breath; R05 Cough; R09.81 Nasal congestion; F17.210 Nicotine dependence, cigarettes, uncomplicated; R09.89 Other specified symptoms and signs involving the circulatory and respiratory systems; R09.82 Postnasal drip; R51 Headache; I10 Essential (primary) hypertension; J44.9 Chronic obstructive pulmonary disease, unspecified; E11.9 Type 2 diabetes mellitus without complications
CPT/HCPCS: 99406; 94640; 99283; 71046; J7620

== ENCOUNTER 2018-05-27 07:58 | Emergency (ER) | payer SELFPAY ==
[2018-05-27 08:10] VITALS: BP 125/66
[2018-05-27] MEDS ORDERED: HYDROCODONE/ACETAMINOPHEN 5-325 MG TABLET PO ONE (09:23)
[2018-05-27] MEDS ORDERED: DIPH/PERTUSS(ACELL)/TETANUS VAC/PF 0.5 ML SYR (>=10YO) IM ONE (09:23)
--- NOTE | 2018-05-27 09:26 | ER Document Report ---
ED Medical Screen (RME) - General Chief Complaint: Puncture Wound Stated Complaint: PUNCTURE WOUND - FOOT Time Seen by Provider: 05/27/18 09:12 Mode of Arrival: Ambulatory Notes: Patient reports stepping on a nail that went through a shoe into his foot yesterday. Patient states that he feels as though he is getting sick and complains of increased pain swelling and redness to the bottom of his foot. I have greeted and performed a rapid initial assessment of this patient. A comprehensive ED assessment and evaluation of the patient, analysis of test results and completion of the medical decision making process will be conducted by additional ED providers. TRAVEL OUTSIDE OF THE [place] IN LAST 30 DAYS: No - Related Data Allergies/Adverse Reactions: iodine [Iodine] Allergy (Severe, Verified 05/27/18 08:00) oxycodone HCl [From Percocet] Allergy (Severe, Verified 05/27/18 08:00) fish derived [Fish derived] Allergy (Verified 05/27/18 08:00) Shellfish * [Shellfish] Allergy (Verified 05/27/18 08:00) ibuprofen [Ibuprofen] Adverse Reaction (Severe, Verified 05/27/18 08:00) bleeding Past Medical History - Social History Frequency of alcohol use: Occasional Drug Abuse: Marijuana Family history: Hypertension, Malignancy - Past Medical History Cardiac Medical History: Reports: Hx DVT - Possible history; has undergone vena caval filter implant., Hx Hypercholesterolemia, Hx Hypertension - Resolved after bariatric surgery Denies: Hx Atrial Fibrillation, Hx Congestive Heart Failure, Hx Pulmonary Embolism Pulmonary Medical History: Reports: Hx Asthma, Hx COPD, Hx Pneumonia, Hx Sleep Apnea - Resolved after bariatric surgery Neurological Medical History: Denies: Hx Seizures Endocrine Medical History: Reports: Hx Diabetes Mellitus Type 2 - Resolved after bariatric surgery. Denies: Hx Diabetes Mellitus Type 1, Hx Hyperthyroidism, Hx Hypothyroidism Renal/ Medical History: Denies: Hx Peritoneal Dialysis GI Medical History: Reports: Hx Gastroesophageal Reflux Disease, Hx Irritable Bowel, Hx Ulcer. Denies: Hx Cirrhosis, Hx Hepatitis Musculoskeltal Medical History: Denies Hx Arthritis, Reports Hx Musculoskeletal Trauma Skin Medical History: Reports Hx Cellulitis Psychiatric Medical History: Reports: Hx Anxiety, Hx Attention Deficit Hyperactivity Disorder, Hx Depression Traumatic Medical History: Reports: Hx Fractures - 5th finger Infectious Medical History: Denies: Hx C-Diff, Hx Hepatitis, Hx MRSA Past Surgical History: Reports: Hx Abdominal Surgery - gastric bypass, Hx Bowel Surgery - hernia repair., Hx Gastric Bypass Surgery, Hx Herniorrhaphy, Other - Vena caval filter implant. History of surgery for perforated ulcer. - Immunizations Immunizations up to date: Yes Hx Diphtheria, Pertussis, Tetanus Vaccination: Yes Physical Exam - Vital signs Vitals: Temp Pulse Resp BP Pulse Ox 98.9 F 99 16 125/66 99 05/27/18 08:03 05/27/18 08:03 05/27/18 08:03 05/27/18 08:03 05/27/18 08:03 - Skin Skin Color: Erythema - Plantar surface of right foot surrounding puncture wound Course - Vital Signs Vital signs: Temp Pulse Resp BP Pulse Ox 98.9 F 99 16 125/66 99 05/27/18 08:03 05/27/18 08:03 05/27/18 08:03 05/27/18 08:03 05/27/18 08:03
--- NOTE | 2018-05-27 10:01 | RADIOLOGY REPORT (SQ) ---
EXAM DESCRIPTION: FOOT RIGHT COMPLETE COMPLETED DATE/TIME: 05/27/2018 9:47 am REASON FOR STUDY: plantar PW COMPARISON: None. NUMBER OF VIEWS: Three views. TECHNIQUE: AP, lateral and oblique radiographic images acquired of the right foot. LIMITATIONS: None. FINDINGS: MINERALIZATION: Normal. BONES: No acute fracture or dislocation. No worrisome bone lesions. JOINTS: No effusions. SOFT TISSUES: No soft tissue swelling. No foreign body. OTHER: No other significant finding. IMPRESSION: NEGATIVE STUDY OF THE RIGHT FOOT. NO RADIOGRAPHIC EVIDENCE OF ACUTE INJURY. No foreign body. TECHNICAL DOCUMENTATION: JOB ID: [id number] [employer]- All Rights Reserved Reading location - IP/workstation name: [email or web address]
--- NOTE | 2018-05-27 11:41 | ER Document Report ---
ED General - General Chief Complaint: Puncture Wound Stated Complaint: PUNCTURE WOUND - FOOT Time Seen by Provider: 05/27/18 09:12 Mode of Arrival: Ambulatory Notes: 28-year-old male with history of lymphedema presents to the emergency department after stepping on a nail at work that went through his work boot and punctured his right sole approximately mid sole. Patient states the board of what initially stuck to his boot and he kicked it off. He inspected the boot but does not think that there is any rubber or sock that was introduced into the wound. Patient states over the last day though he has been getting sicker and complains of increased pain and swelling to the bottom of his foot. He also reports worsening redness as well. Patient denies fever, complains of chills, denies nausea, vomiting, diarrhea. Patient has no other symptoms. TRAVEL OUTSIDE OF THE [place] IN LAST 30 DAYS: No - Related Data Allergies/Adverse Reactions: iodine [Iodine] Allergy (Severe, Verified 05/27/18 08:00) oxycodone HCl [From Percocet] Allergy (Severe, Verified 05/27/18 08:00) fish derived [Fish derived] Allergy (Verified 05/27/18 08:00) Shellfish * [Shellfish] Allergy (Verified 05/27/18 08:00) ibuprofen [Ibuprofen] Adverse Reaction (Severe, Verified 05/27/18 08:00) bleeding Past Medical History - Social History Smoking Status: Current Every Day Smoker Frequency of alcohol use: Occasional Drug Abuse: Marijuana Family History: Reviewed & Not Pertinent, Arthritis, CAD, Hypertension, Malignancy, Other - Seizures Patient has suicidal ideation: No Patient has homicidal ideation: No - Past Medical History Cardiac Medical History: Reports: Hx DVT - Possible history; has undergone vena caval filter implant., Hx Hypercholesterolemia, Hx Hypertension - Resolved after bariatric surgery Denies: Hx Atrial Fibrillation, Hx Congestive Heart Failure, Hx Pulmonary Embolism Pulmonary Medical History: Reports: Hx Asthma, Hx COPD, Hx Pneumonia, Hx Sleep Apnea - Resolved after bariatric surgery Neurological Medical History: Denies: Hx Seizures Endocrine Medical History: Reports: Hx Diabetes Mellitus Type 2 - Resolved after bariatric surgery. Denies: Hx Diabetes Mellitus Type 1, Hx Hyperthyroidism, Hx Hypothyroidism Renal/ Medical History: Denies: Hx Peritoneal Dialysis GI Medical History: Reports: Hx Gastroesophageal Reflux Disease, Hx Irritable Bowel, Hx Ulcer. Denies: Hx Cirrhosis, Hx Hepatitis Musculoskeletal Medical History: Denies Hx Arthritis, Reports Hx Musculoskeletal Trauma Skin Medical History: Reports Hx Cellulitis Psychiatric Medical History: Reports: Hx Anxiety, Hx Attention Deficit Hyperactivity Disorder, Hx Depression Traumatic Medical History: Reports: Hx Fractures - 5th finger Infectious Medical History: Denies: Hx C-Diff, Hx Hepatitis, Hx MRSA Past Surgical History: Reports: Hx Abdominal Surgery - gastric bypass, Hx Bowel Surgery - hernia repair., Hx Gastric Bypass Surgery, Hx Herniorrhaphy, Other - Vena caval filter implant. History of surgery for perforated ulcer. - Immunizations Immunizations up to date: Yes Hx Diphtheria, Pertussis, Tetanus Vaccination: Yes Hx Pneumococcal Vaccination: 01/23/11 Review of Systems - Review of Systems Constitutional: See HPI EENT: No symptoms reported Cardiovascular: No symptoms reported Respiratory: No symptoms reported Gastrointestinal: See HPI Genitourinary: No symptoms reported Male Genitourinary: No symptoms reported Musculoskeletal: No symptoms reported Skin: See HPI Hematologic/Lymphatic: No symptoms reported Neurological/Psychological: No symptoms reported Physical Exam - Vital signs Vitals: Temp Pulse Resp BP Pulse Ox 98.9 F 99 16 125/66 99 05/27/18 08:03 05/27/18 08:03 05/27/18 08:03 05/27/18 08:03 05/27/18 08:03 - Notes Notes: PHYSICAL EXAMINATION: Reviewed vital signs and charting by RN GENERAL: Alert, interacts well. No acute distress. HEAD: Normocephalic, atraumatic. EYES: Pupils equal, round. Extraocular movements intact. ENT: Oral mucosa moist. NECK: Full range of motion. Trachea midline. EXTREMITIES: Moves all 4 extremities spontaneously. No edema, No cyanosis. NEUROLOGICAL: Alert and oriented. Normal speech. PSYCH: Normal affect, normal mood. SKIN: Warm, dry, normal turgor. Small puncture wound right sole midfoot with mild surrounding erythema. No evidence of edema. Course - Re-evaluation Re-evalutation: 05/27/18 11:40 Well-appearing 28-year-old male at work yesterday presents after sustaining a puncture wound. Patient did receive his tetanus immunization here in the emergency department. X-ray showed no evidence of opaque foreign body. Discussed case with Dr. Shaw. Plan is to anesthetize the area and core out the puncture wound and explore it with irrigation. 05/27/18 13:[address] Shaw, supervising physician. Cored out the wound after local anesthetic with lidocaine 1% injected. Then irrigated wound and explored for any retained foreign bodies. None were found in the wound. Placed 1/4 inch iodoform gauze in the wound and placed a small compression dressing on his foot. Patient received gentamicin 150 mg IM 1 time. Patient given a prescription for Keflex 500 mg p.o. 4 times a day. Patient instructed to return to ER in 48 hours for wick removal and wound recheck. Strict return precautions were given in the interim and patient clearly understood them. Patient is safe and stable for discharge. - Vital Signs Vital signs: Temp Pulse Resp BP Pulse Ox 98.9 F 99 16 125/66 99 05/27/18 08:03 05/27/18 08:03 05/27/18 08:03 05/27/18 08:03 05/27/18 08:03 Discharge - Discharge Clinical Impression: Puncture wound Condition: Good Disposition: HOME, SELF-CARE Additional Instructions: You were seen in the emergency department today for a puncture wound. Because it went through the sole of your boot there is a potential for worsening infection. We cleaned out the wound, cord out a small piece of skin, then irrigated it and inspected for foreign bodies. I did not see any rubber or any material that would resemble a sock when I was cleaning it. The plan, per my supervising physician and myself, is to put a small "wick "in the wound and have you follow-up in 2 days for wick removal and a wound check. Also, you were given an intramuscular injection of the medication called gentamicin. I am sending you home with a prescription for medication called Keflex which she needs take 4 times a day for 7 days, 28 tablets in total. Please take this medication to completion. If over the next 48 hours you develop fever, become acutely ill or start to feel worse, you have worsening redness or numbness of your right foot, you notice red streaks moving up your leg, your foot or the area of the wound on your sole becomes red and hot, or you have any other concerns please return to the emergency department as you may require IV antibiotics and a CT scan of your foot. Please do not hesitate to contact us if you have any concerns. Prescriptions: Cephalexin Monohydrate [Keflex 500 mg Capsule] 500 mg PO QID #28 capsule
[2018-05-27] MEDS ORDERED: GENTAMICIN SULFATE INJ 80 MG/2 ML VIAL IM ONE (12:49)
[2018-05-27] MEDS ORDERED: HYDROCODONE/ACETAMINOPHEN 5-325 MG (6 TAB/ER DISP) PO PRN (13:26)
== END 2018-05-27 13:43 | disposition home or self-care (01) ==
LOC: ER 07:58
DX: S91.331A Puncture wound without foreign body, right foot, initial encounter (principal); W45.0XXA Nail entering through skin, initial encounter; Y93.H3 Activity, building and construction; Y99.0 Civilian activity done for income or pay; J44.9 Chronic obstructive pulmonary disease, unspecified; F12.10 Cannabis abuse, uncomplicated; F17.200 Nicotine dependence, unspecified, uncomplicated; Z23 Encounter for immunization; Z88.5 Allergy status to narcotic agent; Z91.013 Allergy to seafood; Z98.84 Bariatric surgery status
CPT/HCPCS: 99283; 96372; 90471; 87070; 87205; 73630; 90715; A6266; J1580

== ENCOUNTER 2018-05-29 15:36 | Emergency (ER) | payer SELFPAY ==
[2018-05-29 15:51] VITALS: BP 127/69
[2018-05-29] MEDS ORDERED: AMOXICILLIN TR/POT CLAVULANATE 500-125 MG TAB PO ONE (17:15)
--- NOTE | 2018-05-29 17:15 | ER Document Report ---
HPI - HPI Patient complains to provider of: recheck foot wound Time Seen by Provider: 05/29/18 17:01 Onset: Other - tuesday Onset/Duration: Intermittent Quality of pain: Pressure Severity: Moderate Pain Level: 3 Associated Symptoms: Other - Pain to the bottom of the right foot front of the foot after he stepped on a nail on Tuesday the continued to work and he came to the emergency room on Tuesday the wound has been record. It does not look like it is infected at this time. Exacerbated by: Walking Relieved by: Denies Similar symptoms previously: Yes Recently seen / treated by doctor: Yes - ROS ROS below otherwise negative: Yes - CONSTITUTIONAL Constitutional: DENIES: Fever, Chills - EENT EENT: DENIES: Sore Throat, Ear Pain, Nasal Drainage-Clear, Nasal Drainage- Purulent, Congestion, Eye problems - NEURO Neurology: DENIES: Headache, Weakness, Vision blurred, Dizzinesss / Vertigo - CARDIOVASCULAR Cardiovascular: DENIES: Chest pain - RESPIRATORY Respiratory: DENIES: Trouble Breathing, Coughing - GASTROINTESTINAL Gastrointestinal: DENIES: Abdominal Pain, Nausea, Patient vomiting, Diarrhea, Constipation, Black / Bloody Stools - URINARY Urinary: DENIES: Dysuria, Urgency, Frequency - REPRODUCTIVE Reproductive: DENIES: :, Postmenopausal, Abnormal bleeding / discharge - MUSCULOSKELETAL Musculoskeletal: REPORTS: Extremity pain - Pain to the bottom of the righ - DERM Skin Color: Erythema - Mild erythema to the bottom of the right foot no drainage Skin Problems: Laceration - Puncture wound to the bottom of the right foot Past Medical History - General Information source: Patient - Social History Smoking Status: Current Every Day Smoker Cigarette use (# per day): Yes - Half pack a day Chew tobacco use (# tins/day): No Smoking Education Provided: Yes - 4 minutes Frequency of alcohol use: Occasional Drug Abuse: Marijuana Family History: Reviewed & Not Pertinent, Arthritis, CAD, Hypertension, Malignancy, Other - Seizures Patient has suicidal ideation: No - Past Medical History Cardiac Medical History: Reports: Hx DVT - Possible history; has undergone vena caval filter implant., Hx Hypercholesterolemia, Hx Hypertension - Resolved after bariatric surgery Pulmonary Medical History: Reports: Hx Asthma, Hx COPD, Hx Pneumonia, Hx Sleep Apnea - Resolved after bariatric surgery Neurological Medical History: Reports: None Endocrine Medical History: Reports: None Renal/ Medical History: Reports: None Malignancy Medical History: Reports None GI Medical History: Reports: Hx Gastroesophageal Reflux Disease, Hx Irritable Bowel, Hx Ulcer Musculoskeletal Medical History: Reports Hx Musculoskeletal Trauma Skin Medical History: Reports Hx Cellulitis Psychiatric Medical History: Reports: Hx Anxiety, Hx Attention Deficit Hyperactivity Disorder, Hx Depression Traumatic Medical History: Reports: Hx Fractures - 5th finger Infectious Medical History: Reports: None Past Surgical History: Reports: Hx Abdominal Surgery - gastric bypass, Hx Bowel Surgery - hernia repair., Hx Gastric Bypass Surgery, Hx Herniorrhaphy, Other - Vena caval filter implant. History of surgery for perforated ulcer. - Immunizations Immunizations up to date: Yes Hx Diphtheria, Pertussis, Tetanus Vaccination: Yes Hx Pneumococcal Vaccination: 01/23/11 Vertical Provider Document - CONSTITUTIONAL Agree With Documented VS: Yes Exam Limitations: No Limitations General Appearance: WD/WN, No Apparent Distress - INFECTION CONTROL TRAVEL OUTSIDE OF THE [place] IN LAST 30 DAYS: No - HEENT HEENT: Atraumatic, Normal ENT Exam, Normocephalic, PERRLA - NECK Neck: Normal Inspection, Supple - RESPIRATORY Respiratory: Breath Sounds Normal, No Respiratory Distress - CARDIOVASCULAR Cardiovascular: Regular Rate, Regular Rhythm - BACK Back: Normal Inspection - MUSCULOSKELETAL/EXTREMETIES Musculoskeletal/Extremeties: Tender Notes: Puncture wound to the bottom of the right foot no signs of drainage no signs of inflammation there is mild redness to the bottom of the foot that is approximately the same as the bottom of the left foot. There is no signs of gross infection at this time. Patient was changed from Keflex to Augmentin. Patient was recommended to get labs as he states he was continuing to feel sick but he states he cannot stay for labs he will follow-up with her primary doctor in the next 48 hours. Patient states he has too much to do today to stay to get blood work drawn. Wound was rinsed dressing change patient was given instructions on soak with Epsom salt and change dressing 3 times a day. Patient was instructed to return to the emergency room immediately for any increase in symptoms. Patient verbalized understanding and agreement with treatment plan. Patient was discharged home with prescription for Augmentin. - NEURO Level of Consciousness: Awake Course - Re-evaluation Re-evalutation: 05/29/18 17:26 Puncture wound to the bottom of the right foot no signs of drainage no signs of inflammation there is mild redness to the bottom of the foot that is approximately the same as the bottom of the left foot. There is no signs of gross infection at this time. Patient was changed from Keflex to Augmentin. Patient was recommended to get labs as he states he was continuing to feel sick but he states he cannot stay for labs he will follow-up with her primary doctor in the next 48 hours. Patient states he has too much to do today to stay to get blood work drawn. Wound was rinsed dressing change patient was given instructions on soak with Epsom salt and change dressing 3 times a day. Patient was instructed to return to the emergency room immediately for any increase in symptoms. Patient verbalized understanding and agreement with treatment plan. Patient was discharged home with prescription for Augmentin. - Vital Signs Vital signs: Temp Pulse Resp BP Pulse Ox 99.4 F 94 20 127/69 H 96 05/29/18 15:50 05/29/18 15:50 05/29/18 15:50 05/29/18 15:50 05/29/18 15:50 Discharge - Discharge Clinical Impression: recheck puncture wound Condition: Stable Disposition: HOME, SELF-CARE Instructions: Family Physicians / Practices Additional Instructions: You were seen today for recheck on your puncture wound to your right foot. You state your continued to have pain but there is no signs or symptoms of increased infection. I am changing her antibiotics from Keflex to Augmentin. Epsom Salt Soaks Soak the wound area in a container of warm epsom salt water. If you can't get the wound area into a bucket or valdez, use a folded towel soaked in the epsom salt solution and apply to the area. Use clean hot tap water (about the temperature of a very warm bath), mixing in about one (1) teaspoon for every pint of water. Two gallon --> 16 teaspoons Epsom Salts One gallon --> 8 teaspoons Epsom Salts Two quarts --> 4 teaspoons Epsom Salts One quart --> 2 teaspoons Epsom Salts Soak the wound for about 20 minutes while gently moving it around in the water. Repeat this four (4) times a day. Augmentin Augmentin is a mixture of amoxicillin and clavulanate. Amoxicillin is a member of the penicillin family. It covers the germs likely to cause ear, bronchial, and urinary infections better than plain penicillin. The addition of clavulanate allows it to cover staph infections of the skin, as well as resistant cases of ear and sinus infections. Your physician has chosen Augmentin for you because of the special nature of your situation. Augmentin is best taken with meals. Nausea after taking the medication is rare, but can occur. Diarrhea can occur, particularly in small children. Vaginal yeast infections, and oral thrush in infants are also common. Contact your physician if these problems occur. Allergy to penicillins is common. If you have had an allergic reaction to any drug of the penicillin family, you should never take any other penicillin. Notify your doctor at once if you develop hives, shortness of breath, swelling, or faintness. Acetaminophen Acetaminophen may be taken for pain relief or fever control. It's much safer than aspirin, offering a wider range of "safe" dosages. It is safe during . Some brand names are Tylenol, Panadol, Datril, Anacin 3, Tempra, and Liquiprin. Acetaminophen can be repeated every four hours. The following are maximum recommended dosages: WEIGHT Dose Drops Elixir Chewable(80mg) (LBS.) drprs=droppers tsp=teaspoon 6 40 mg .4 ml (1/2) 6-11 80 mg .8 ml (full) 1/2 tsp 1 tab 12-16 120 mg 1 1/2 drprs 3/4 tsp 1 1/2 tabs 17-23 160 mg 2 drprs 1 tsp 2 tabs 24-30 240 mg 3 drprs 1 1/2 tsp 3 tabs 30-35 320 mg 2 tsp 4 tabs 36-41 360 mg 2 1/4 tsp 4 1/2 tabs 42-47 400 mg 2 1/2 tsp 5 tabs 48-53 480 mg 3 tsp 6 tabs 54-59 520 mg 3 1/4 tsp 6 1/2 tabs 60-64 560 mg 3 1/2 tsp 7 tabs 65-70 600 mg 3 3/4 tsp 7 1/2 tabs 71-76 640 mg 4 tsp 8 tabs 77-82 720 mg 4 1/2 tsp 9 tabs 83-88 800 mg 5 tsp 10 tabs >89 pounds or adults 650 mg to 900 mg Acetaminophen can be repeated every four hours. Maximum daily dose not to exceed 4000 mg. These maximum recommended dosages are slightly higher than the dosages written on the product container, but these dosages are very safe and well below the toxic dosage for acetaminophen. FOLLOW-UP CARE: If you have been referred to a physician for follow-up care, call the physicians office for an appointment as you were instructed or within the next two days. If you experience worsening or a significant change in your symptoms, notify the physician immediately or return to the Emergency Department at any time for re-evaluation. You have agreed that she will follow-up with a primary doctor within the next 48 hours to ensure that this wound continues to heal. Prescriptions: Amox Tr/Potassium Clavulanate [Augmentin 875-125 Tablet] 1 tab PO BID 10 Days tablet Forms: Elevated Blood Pressure, Smoking Cessation Education
== END 2018-05-29 17:27 | disposition home or self-care (01) ==
LOC: ER 15:36
DX: M79.671 Pain in right foot (principal); W26.9XXD Contact with unspecified sharp object(s), subsequent encounter; F17.210 Nicotine dependence, cigarettes, uncomplicated; I10 Essential (primary) hypertension; J44.9 Chronic obstructive pulmonary disease, unspecified
CPT/HCPCS: 99282; 99406

== ENCOUNTER 2018-06-29 23:54 | Emergency (ER) | payer SELFPAY ==
--- NOTE | 2018-06-30 00:53 | ER Document Report ---
ED Medical Screen (RME) - General Chief Complaint: Leg Swelling Stated Complaint: LEG PAIN Time Seen by Provider: 06/30/18 00:51 Mode of Arrival: Ambulatory Information source: Patient Notes: 28-year-old male presented to ED for complaint of severe swelling to the left lower extremity. He states he always has swelling to his legs but Tuesday they started increasing and becoming more painful. His left leg is much greater than his right leg. He states he cut himself on his left leg. He states he did have a gastric bypass in the past and has lost a lot of weight he did weigh 500 pounds. He states he has a history of lymphedema high blood pressure sleep apnea and perforated ulcers. He states he did have surgery for the perforated ulcers. He does smoke half pack a day drinks occasionally and lives with his significant other. His blood pressure is 125/66 with a pulse of 61 and a sat of 98% while I examined him. He is alert oriented respirations regular and unlabored speaking in full sentences. I have greeted and performed a rapid initial assessment of this patient. A comprehensive ED assessment and evaluation of the patient, analysis of test results and completion of medical decision making process will be conducted by an additional ED providers. TRAVEL OUTSIDE OF THE [place] IN LAST 30 DAYS: No - Related Data Allergies/Adverse Reactions: iodine [Iodine] Allergy (Severe, Verified 05/27/18 08:00) oxycodone HCl [From Percocet] Allergy (Severe, Verified 05/27/18 08:00) fish derived [Fish derived] Allergy (Verified 05/27/18 08:00) Shellfish * [Shellfish] Allergy (Verified 05/27/18 08:00) ibuprofen [Ibuprofen] Adverse Reaction (Severe, Verified 05/27/18 08:00) bleeding Past Medical History - Social History Family history: Hypertension, Malignancy - Past Medical History Cardiac Medical History: Reports: Hx DVT - Possible history; has undergone vena caval filter implant., Hx Hypercholesterolemia, Hx Hypertension - Resolved after bariatric surgery Denies: Hx Atrial Fibrillation, Hx Congestive Heart Failure, Hx Pulmonary Embolism Pulmonary Medical History: Reports: Hx Asthma, Hx COPD, Hx Pneumonia, Hx Sleep Apnea - Resolved after bariatric surgery Neurological Medical History: Denies: Hx Seizures Endocrine Medical History: Reports: Hx Diabetes Mellitus Type 2 - Resolved after bariatric surgery. Denies: Hx Diabetes Mellitus Type 1, Hx Hyperthyroidism, Hx Hypothyroidism Renal/ Medical History: Denies: Hx Peritoneal Dialysis GI Medical History: Reports: Hx Gastroesophageal Reflux Disease, Hx Irritable Bowel, Hx Ulcer. Denies: Hx Cirrhosis, Hx Hepatitis Musculoskeltal Medical History: Denies Hx Arthritis, Reports Hx Musculoskeletal Trauma Skin Medical History: Reports Hx Cellulitis Psychiatric Medical History: Reports: Hx Anxiety, Hx Attention Deficit H yperactivity Disorder, Hx Depression Traumatic Medical History: Reports: Hx Fractures - 5th finger Infectious Medical History: Denies: Hx C-Diff, Hx Hepatitis, Hx MRSA Past Surgical History: Reports: Hx Abdominal Surgery - gastric bypass, Hx Bowel Surgery - hernia repair., Hx Gastric Bypass Surgery, Hx Herniorrhaphy, Other - Vena caval filter implant. History of surgery for perforated ulcer. - Immunizations Immunizations up to date: Yes Hx Diphtheria, Pertussis, Tetanus Vaccination: Yes Physical Exam - Vital signs Vitals: Temp Pulse Resp BP Pulse Ox 98.1 F 70 18 142/49 H 98 06/30/18 00:11 06/30/18 00:11 06/30/18 00:11 06/30/18 00:11 06/30/18 00:11 Course - Vital Signs Vital signs: Temp Pulse Resp BP Pulse Ox 98.1 F 70 18 142/49 H 98 06/30/18 00:11 06/30/18 00:11 06/30/18 00:11 06/30/18 00:11 06/30/18 00:11
[2018-06-30 01:23] LABS: ABSOLUTE EOSINOPHILS # (AUTO) 0.2 10^3/uL (0.0-0.6); ABSOLUTE LYMPHOCYTES (AUTO) 2.4 10^3/uL (0.5-4.7); ABSOLUTE MONOCYTES (AUTO) 0.7 10^3/uL (0.1-1.4); ABSOLUTE NEUT (AUTO) 3.1 10^3/uL (1.7-8.2); BASOPHILS % (AUTO) 0.5 % (0-2); EOSINOPHILS % (AUTO) 2.8 % (0-6); HEMOGLOBIN 13.4 g/dL (13.5-17.0); LYMPHOCYTES % (AUTO) 37.8 % (13-45); MEAN CORPUSCULAR HEMOGLOBIN 31.7 pg (27.0-33.4); MEAN CORPUSCULAR HGB CONC 34.3 g/dL (32.0-36.0); MEAN CORPUSCULAR VOLUME 93 fl (80-97); MONOCYTES % (AUTO) 10.9 % (3-13); PLATELET COUNT 206 10^3/uL (150-450); RED BLOOD COUNT 4.21 10^6/uL (4.35-5.55); TOTAL CELLS COUNTED % (AUTO) 100 %; WHITE BLOOD COUNT 6.3 10^3/uL (4.0-10.5)
[2018-06-30 01:34] LABS: ALANINE AMINOTRANSFERASE 37 U/L (21-72); ALBUMIN 4.2 g/dL (3.5-5.0); ALKALINE PHOSPHATASE 50 U/L (38-126); ANION GAP 8 (5-19); ASPARTATE AMINO TRANSFERASE 38 U/L (17-59); BILIRUBIN,DIRECT 0.1 mg/dL (0.0-0.4); BILIRUBIN,TOTAL 0.3 mg/dL (0.2-1.3); BLOOD UREA NITROGEN 19 mg/dL (7-20); CALCIUM 9.5 mg/dL (8.4-10.2); CARBON DIOXIDE 26 mmol/L (22-30); CHLORIDE 107 mmol/L (98-107); GLUCOSE 84 mg/dL (75-110); POTASSIUM 4.1 mmol/L (3.6-5.0); SODIUM 140.5 mmol/L (137-145); TOTAL PROTEIN 6.5 g/dL (6.3-8.2)
[2018-06-30 01:49] LABS: APPEARANCE,URINE SLIGHTLY-CLOUDY; BILIRUBIN,URINE NEGATIVE (NEGATIVE); COLOR,URINE YELLOW; GLUCOSE, URINE NEGATIVE (NEGATIVE); KETONES,URINE NEGATIVE (NEGATIVE); LEUKOCYTE ESTERASE,URINE TRACE (NEGATIVE); NITRITE,URINE NEGATIVE (NEGATIVE); PROTEIN,URINE NEGATIVE (NEGATIVE); URINE SPECIFIC GRAVITY 1.024; UROBILINOGEN,URINE NEGATIVE mg/dL (<2.0)
--- NOTE | 2018-06-30 02:49 | ER Document Report ---
ED General - General Chief Complaint: Leg Swelling Stated Complaint: LEG PAIN Time Seen by Provider: 06/30/18 00:51 Mode of Arrival: Ambulatory Notes: Patient is a 28-year-old male with a past medical history of gastric bypass, apparently was over 500 pounds in the past, has chronic lymphedema to bilateral lower extremities presents complaining of increasing swelling and pain to the bilateral lower extremities, worse on the left versus the right. Patient describes a dull, throbbing, constant pain worsened with prolonged periods of standing which also resulted in increased swelling. States he was sent to the emergency room by his boss today due to having difficulty at work secondary to swelling and pain. States that he is not trying to improve his symptoms. This is a long-standing, chronic issue. Has not seen his primary care doctor regarding today's concerns. TRAVEL OUTSIDE OF THE [place] IN LAST 30 DAYS: No - Related Data Allergies/Adverse Reactions: iodine [Iodine] Allergy (Severe, Verified 05/27/18 08:00) oxycodone HCl [From Percocet] Allergy (Severe, Verified 05/27/18 08:00) fish derived [Fish derived] Allergy (Verified 05/27/18 08:00) Shellfish * [Shellfish] Allergy (Verified 05/27/18 08:00) ibuprofen [Ibuprofen] Adverse Reaction (Severe, Verified 05/27/18 08:00) bleeding Past Medical History - General Information source: Patient - Social History Smoking Status: Current Every Day Smoker Chew tobacco use (# tins/day): No Frequency of alcohol use: Social Drug Abuse: None Lives with: Spouse/Significant other Family History: Reviewed & Not Pertinent, Arthritis, CAD, Hypertension, Malignancy, Other - Seizures Patient has suicidal ideation: No Patient has homicidal ideation: No - Past Medical History Cardiac Medical History: Reports: Hx DVT - Possible history; has undergone vena caval filter implant., Hx Hypercholesterolemia, Hx Hypertension - Resolved after bariatric surgery Denies: Hx Atrial Fibrillation, Hx Congestive Heart Failure, Hx Pulmonary Embolism Pulmonary Medical History: Reports: Hx Asthma, Hx COPD, Hx Pneumonia, Hx Sleep Apnea - Resolved after bariatric surgery Neurological Medical History: Denies: Hx Seizures Endocrine Medical History: Reports: Hx Diabetes Mellitus Type 2 - Resolved after bariatric surgery. Denies: Hx Diabetes Mellitus Type 1, Hx Hyperthyroidism, Hx Hypothyroidism Renal/ Medical History: Denies: Hx Peritoneal Dialysis GI Medical History: Reports: Hx Gastroesophageal Reflux Disease, Hx Irritable Bowel, Hx Ulcer. Denies: Hx Cirrhosis, Hx Hepatitis Musculoskeletal Medical History: Denies Hx Arthritis, Reports Hx Musculoskeletal Trauma Skin Medical History: Reports Hx Cellulitis Psychiatric Medical History: Reports: Hx Anxiety, Hx Attention Deficit Hyperactivity Disorder, Hx Depression Traumatic Medical History: Reports: Hx Fractures - 5th finger Infectious Medical History: Denies: Hx C-Diff, Hx Hepatitis, Hx MRSA Past Surgical History: Reports: Hx Abdominal Surgery - gastric bypass, Hx Bowel Surgery - hernia repair, Hx Gastric Bypass Surgery, Hx Herniorrhaphy, Other - Vena caval filter implant. History of surgery for perforated ulcer. - Immunizations Immunizations up to date: Yes Hx Diphtheria, Pertussis, Tetanus Vaccination: Yes Hx Pneumococcal Vaccination: 01/23/11 Review of Systems - Review of Systems Notes: Constitutional: Negative for fever. HENT: Negative for sore throat. Eyes: Negative for visual changes. Cardiovascular: Negative for chest pain. Respiratory: Negative for shortness of breath. Gastrointestinal: Negative for abdominal pain, vomiting or diarrhea. Genitourinary: Negative for dysuria. Musculoskeletal: Positive bilateral lower extremity edema and pain Skin: Negative for rash. Neurological: Negative for headaches, weakness or numbness. 10 point ROS negative except as marked above and in HPI. Physical Exam - Vital signs Vitals: Temp Pulse Resp BP Pulse Ox 98.1 F 70 18 142/49 H 98 06/30/18 00:11 06/30/18 00:11 06/30/18 00:11 06/30/18 00:11 06/30/18 00:11 Interpretation: Hypertensive Notes: PHYSICAL EXAMINATION: GENERAL: Well-appearing, well-nourished and in no acute distress. HEAD: Atraumatic, normocephalic. EYES: Pupils equal round and reactive to light, extraocular movements intact, sclera anicteric, conjunctiva are normal. ENT: nares patent, oropharynx clear without exudates. Moist mucous membranes. NECK: Normal range of motion, supple without lymphadenopathy LUNGS: Breath sounds clear to auscultation bilaterally and equal. No wheezes rales or rhonchi. HEART: Regular rate and rhythm without murmurs, 2+ DP pulses bilaterally ABDOMEN: Soft, nontender, normoactive bowel sounds. No guarding, no rebound. No masses appreciated. EXTREMITIES: Normal range of motion, 2+ pitting edema in the bilateral lower extremities relatively symmetric. No cyanosis. NEUROLOGICAL: No focal neurological deficits. Moves all extremities spontaneously and on command. PSYCH: Normal mood, normal affect. SKIN: Warm, Dry, normal turgor, no rashes or lesions noted. Course - Re-evaluation Re-evalutation: 06/30/18 02:47 Patient presents with chronic pain and swelling to his bilateral lower extremities has been worse since he has been standing and working for prolonged periods of time. Has known chronic lymphedema always worse than the left versus the right. On exam the patient has 2+ pitting edema that is relatively symmetric bilaterally. No obvious areas of erythema or cellulitis. Labs obtained in triage including a d-dimer noted to be under O. The patient has not been wearing compression stockings. The patient has been placed in compression stockings here in the emergency department, has been advised to wear these throughout the day to help reduce swelling and pain. Patient is also been prescribed topical diclofenac which she can use as needed for pain. I do not clinically suspect a cellulitis or DVT based on exam, labs and history. At this time will discharge with return precautions and follow-up recommendations. Ve rbal discharge instructions given a the bedside and opportunity for questions given. Medication warnings reviewed. Patient is in agreement with this plan and has verbalized understanding of return precautions and the need for primary care follow-up in the next 24-72 hours. - Vital Signs Vital signs: Temp Pulse Resp BP Pulse Ox 98.1 F 70 18 142/49 H 98 06/30/18 00:11 06/30/18 00:11 06/30/18 00:11 06/30/18 00:11 06/30/18 00:11 - Laboratory Result Diagrams: 06/30/18 01:05 06/30/18 01:05 Laboratory results interpreted by me: 06/30/18 06/30/18 01:05 01:18 RBC 4.21 L Hgb 13.4 L Ur Leukocyte Esterase TRACE H Urine Ascorbic Acid 40 H Discharge - Discharge Clinical Impression: Lymphedema, Bilateral lower extremity pain Condition: Good Disposition: HOME, SELF-CARE Additional Instructions: Please wear compression stockings on both your legs throughout the day to help reduce the swelling in your legs. This should also help with your pain. Return if you develop worsening pain on one side, fever greater than 101F, vomiting, weakness, numbness or any other symptoms that are concerning to you. Prescriptions: Diclofenac Sodium [Voltaren] 100 gm TP TID PRN #100 gel..gm. PRN Reason:
[2018-06-30 03:06] VITALS: BP 118/60
== END 2018-06-30 03:06 | disposition home or self-care (01) ==
LOC: ER 23:54
DX: I89.0 Lymphedema, not elsewhere classified (principal); M79.605 Pain in left leg; M79.604 Pain in right leg; F17.200 Nicotine dependence, unspecified, uncomplicated; E78.00 Pure hypercholesterolemia, unspecified; E11.9 Type 2 diabetes mellitus without complications; Z88.6 Allergy status to analgesic agent; Z86.718 Personal history of other venous thrombosis and embolism; Z91.013 Allergy to seafood; Z98.84 Bariatric surgery status
CPT/HCPCS: 36415; 80053; 81001; 85025; 85379; 99283

== ENCOUNTER 2018-12-17 06:26 | Emergency (ER) | payer SELFPAY ==
[2018-12-17 08:49] LABS: ABSOLUTE EOSINOPHILS # (AUTO) 0.2 10^3/uL (0.0-0.6); ABSOLUTE LYMPHOCYTES (AUTO) 1.6 10^3/uL (0.5-4.7); ABSOLUTE MONOCYTES (AUTO) 0.7 10^3/uL (0.1-1.4); ABSOLUTE NEUT (AUTO) 6.4 10^3/uL (1.7-8.2); BASOPHILS % (AUTO) 0.3 % (0-2); EOSINOPHILS % (AUTO) 2.5 % (0-6); HEMATOCRIT 43.1 % (37.9-51.0); HEMOGLOBIN 14.8 g/dL (13.5-17.0); LYMPHOCYTES % (AUTO) 17.8 % (13-45); MEAN CORPUSCULAR HEMOGLOBIN 32.3 pg (27.0-33.4); MEAN CORPUSCULAR HGB CONC 34.3 g/dL (32.0-36.0); MEAN CORPUSCULAR VOLUME 94 fl (80-97); MONOCYTES % (AUTO) 7.7 % (3-13); PLATELET COUNT 212 10^3/uL (150-450); RED BLOOD COUNT 4.58 10^6/uL (4.35-5.55); RED CELL DISTRIBUTION WIDTH 13.8 % (11.5-14.0); SEGMENTED NEUTROPHILS % (AUTO) 71.7 % (42-78); TOTAL CELLS COUNTED % (AUTO) 100 %; WHITE BLOOD COUNT 8.9 10^3/uL (4.0-10.5)
[2018-12-17 09:06] LABS: ALBUMIN 4.2 g/dL (3.5-5.0); ALKALINE PHOSPHATASE 53 U/L (38-126); ANION GAP 7 (5-19); ASPARTATE AMINO TRANSFERASE 25 U/L (17-59); BILIRUBIN,DIRECT 0.1 mg/dL (0.0-0.4); BILIRUBIN,TOTAL 0.2 mg/dL (0.2-1.3); BLOOD UREA NITROGEN 18 mg/dL (7-20); CALCIUM 9.1 mg/dL (8.4-10.2); CARBON DIOXIDE 28 mmol/L (22-30); CHLORIDE 105 mmol/L (98-107); TOTAL PROTEIN 6.8 g/dL (6.3-8.2)
[2018-12-17 09:10] LABS: GLUCOSE 68 mg/dL (75-110)
--- NOTE | 2018-12-17 09:36 | ER Document Report ---
ED Medical Screen (RME) - General Chief Complaint: Low Blood Sugar Stated Complaint: REPORTS LOW BLOOD SUGAR Time Seen by Provider: 12/17/18 09:31 Mode of Arrival: Ambulatory Information source: Patient Notes: 28 yo male presents to ed for low blood sugar at work and ate a lot of food then came to ed. Having bad headaches in the am. Has been having low sugar in the morning after eating and taking his vitamins. this started happening after his gastric bypass surgery. Patient is alert oriented respirations regular and unlabored speaking in full sentences walks with even steady gait. I have greeted and performed a rapid initial assessment of this patient. A comprehensive ED assessment and evaluation of the patient, analysis of test results and completion of medical decision making process will be conducted by an additional ED providers. TRAVEL OUTSIDE OF THE [place] IN LAST 30 DAYS: No - Related Data Allergies/Adverse Reactions: iodine [Iodine] Allergy (Severe, Verified 05/27/18 08:00) oxycodone HCl [From Percocet] Allergy (Severe, Verified 05/27/18 08:00) fish derived [Fish derived] Allergy (Verified 05/27/18 08:00) Shellfish * [Shellfish] Allergy (Verified 05/27/18 08:00) ibuprofen [Ibuprofen] Adverse Reaction (Severe, Verified 05/27/18 08:00) bleeding Past Medical History - Social History Cigarette use (# per day): Yes - 4-5 cig a day Family history: Hypertension, Malignancy - Past Medical History Cardiac Medical History: Reports: Hx DVT - Possible history; has undergone vena caval filter implant., Hx Hypercholesterolemia, Hx Hypertension - Resolved after bariatric surgery Denies: Hx Atrial Fibrillation, Hx Congestive Heart Failure, Hx Pulmonary Embolism Pulmonary Medical History: Reports: Hx Asthma, Hx COPD, Hx Pneumonia, Hx Sleep Apnea - Resolved after bariatric surgery Neurological Medical History: Denies: Hx Seizures Endocrine Medical History: Reports: Hx Diabetes Mellitus Type 2 - Resolved after bariatric surgery. Denies: Hx Diabetes Mellitus Type 1, Hx Hyperthyroidism, Hx Hypothyroidism Renal/ Medical History: Denies: Hx Peritoneal Dialysis GI Medical History: Reports: Hx Gastroesophageal Reflux Disease, Hx Irritable Bowel, Hx Ulcer. Denies: Hx Cirrhosis, Hx Hepatitis Musculoskeltal Medical History: Denies Hx Arthritis, Reports Hx Musculoskeletal Trauma Skin Medical History: Reports Hx Cellulitis Psychiatric Medical History: Reports: Hx Anxiety, Hx Attention Deficit Hyperactivity Disorder, Hx Depression Traumatic Medical History: Reports: Hx Fractures - 5th finger Infectious Medical History: Denies: Hx C-Diff, Hx Hepatitis, Hx MRSA Past Surgical History: Reports: Hx Gastric Bypass Surgery, Hx Inguinal Hernia, Other - Vena caval filter implant. History of surgery for perforated ulcer. - Immunizations Immunizations up to date: Yes Hx Diphtheria, Pertussis, Tetanus Vaccination: Yes Physical Exam - Vital signs Vitals: Temp Pulse Resp BP Pulse Ox 97.9 F 91 14 137/69 H 100 12/17/18 06:43 12/17/18 06:43 12/17/18 06:43 12/17/18 06:43 12/17/18 06:43 Course - Vital Signs Vital signs: Temp Pulse Resp BP Pulse Ox 97.9 F 53 L 16 132/77 H 99 12/17/18 10:53 12/17/18 10:53 12/17/18 10:53 12/17/18 10:53 12/17/18 10:53 - Laboratory Result Diagrams: 12/17/18 08:30 12/17/18 08:30 Laboratory results interpreted by me: 12/17/18 12/17/18 12/17/18 06:41 08:30 09:54 Glucose 68 L POC Glucose 159 H Urine Urobilinogen 2.0 H Urine Ascorbic Acid 40 H Doctor's Discharge - Discharge Clinical Impression: Lightheaded, Hypoglycemia after GI (gastrointestinal) surgery Condition: Good Disposition: HOME, SELF-CARE Additional Instructions: Please eat smaller more frequent meals to help prevent drops in your blood sugar. Forms: Return to Work
--- NOTE | 2018-12-17 10:33 | ER Document Report ---
ED General - General Chief Complaint: Low Blood Sugar Stated Complaint: REPORTS LOW BLOOD SUGAR Time Seen by Provider: 12/17/18 09:31 Mode of Arrival: Ambulatory TRAVEL OUTSIDE OF THE [place] IN LAST 30 DAYS: No - HPI Notes: She was at work started feeling lightheaded with gastric bypass surgery in 2012 when his blood sugar drops that he feels this way. He ate and then came to the emergency department. No recent fevers or illnesses denies any pain at this time. - Related Data Allergies/Adverse Reactions: iodine [Iodine] Allergy (Severe, Verified 05/27/18 08:00) oxycodone HCl [From Percocet] Allergy (Severe, Verified 05/27/18 08:00) fish derived [Fish derived] Allergy (Verified 05/27/18 08:00) Shellfish * [Shellfish] Allergy (Verified 05/27/18 08:00) ibuprofen [Ibuprofen] Adverse Reaction (Severe, Verified 05/27/18 08:00) bleeding Past Medical History - General Information source: Patient - Social History Smoking Status: Never Smoker Cigarette use (# per day): Yes - 4-5 cig a day Family History: Reviewed & Not Pertinent, Arthritis, CAD, Hypertension, Malign allie, Other - Seizures Patient has suicidal ideation: No Patient has homicidal ideation: No - Past Medical History Cardiac Medical History: Reports: Hx DVT - Possible history; has undergone vena caval filter implant., Hx Hypercholesterolemia, Hx Hypertension - Resolved after bariatric surgery Denies: Hx Atrial Fibrillation, Hx Congestive Heart Failure, Hx Pulmonary Embolism Pulmonary Medical History: Reports: Hx Asthma, Hx COPD, Hx Pneumonia, Hx Sleep Apnea - Resolved after bariatric surgery Neurological Medical History: Denies: Hx Seizures Endocrine Medical History: Reports: Hx Diabetes Mellitus Type 2 - Resolved after bariatric surgery. Denies: Hx Diabetes Mellitus Type 1, Hx Hyperthyroidism, Hx Hypothyroidism Renal/ Medical History: Denies: Hx Peritoneal Dialysis GI Medical History: Reports: Hx Gastroesophageal Reflux Disease, Hx Irritable Bowel, Hx Ulcer. Denies: Hx Cirrhosis, Hx Hepatitis Musculoskeletal Medical History: Denies Hx Arthritis, Reports Hx Musculoskeletal Trauma Skin Medical History: Reports Hx Cellulitis Psychiatric Medical History: Reports: Hx Anxiety, Hx Attention Deficit Hyperactivity Disorder, Hx Depression Traumatic Medical History: Reports: Hx Fractures - 5th finger Infectious Medical History: Denies: Hx C-Diff, Hx Hepatitis, Hx MRSA Past Surgical History: Reports: Hx Abdominal Surgery - gastric bypass, Hx Bowel Surgery - hernia repair, Hx Gastric Bypass Surgery, Hx Inguinal Hernia, Other - Vena caval filter implant. History of surgery for perforated ulcer. - Immunizations Immunizations up to date: Yes Hx Diphtheria, Pertussis, Tetanus Vaccination: Yes Hx Pneumococcal Vaccination: 01/23/11 Review of Systems - Review of Systems Constitutional: No symptoms reported EENT: No symptoms reported Cardiovascular: No symptoms reported Respiratory: No symptoms reported Gastrointestinal: No symptoms reported Genitourinary: No symptoms reported Male Genitourinary: No symptoms reported Musculoskeletal: No symptoms reported Skin: No symptoms reported Hematologic/Lymphatic: No symptoms reported Neurological/Psychological: See HPI Physical Exam - Vital signs Vitals: Temp Pulse Resp BP Pulse Ox 97.9 F 91 14 137/69 H 100 12/17/18 06:43 12/17/18 06:43 12/17/18 06:43 12/17/18 06:43 12/17/18 06:43 - General General appearance: Appears well, Alert - HEENT Head: Normocephalic, Atraumatic Eyes: Normal Conjunctiva: Normal Cornea: Normal Extraocular movements intact: Yes - Respiratory Respiratory status: No respiratory distress Chest status: Nontender Breath sounds: Normal Chest palpation: Normal - Cardiovascular Rhythm: Regular Heart sounds: Normal auscultation Murmur: No - Abdominal Inspection: Normal Distension: No distension Bowel sounds: Normal Tenderness: Nontender - Back Back: Normal - Extremities General upper extremity: Normal inspection, Normal ROM General lower extremity: Normal inspection, Normal ROM - Neurological Neuro grossly intact: Yes Cognition: Normal Orientation: AAOx4 - Psychological Associated symptoms: Normal affect Course - Re-evaluation Re-evalutation: 12/17/18 10:30 Well-appearing patient asymptomatic in the emergency department with negative work-up. No recent falls traumas fevers or illnesses. Symptoms consistent with when he is not eating his blood sugar drops. This is been going on since 2012 since his gastric bypass surgery. Patient will be discharged at this time with return precautions advised to eat smaller frequent meals throughout the day. - Vital Signs Vital signs: Temp Pulse Resp BP Pulse Ox 97.9 F 91 14 137/69 H 100 12/17/18 06:43 12/17/18 06:43 12/17/18 06:43 12/17/18 06:43 12/17/18 06:43 - Laboratory Result Diagrams: 12/17/18 08:30 12/17/18 08:30 Laboratory results interpreted by me: 12/17/18 12/17/18 06:41 08:30 Glucose 68 L POC Glucose 159 H Discharge - Discharge Clinical Impression: Lightheaded, Hypoglycemia after GI (gastrointestinal) surgery Condition: Good Disposition: HOME, SELF-CARE Additional Instructions: Please eat smaller more frequent meals to help prevent drops in your blood sugar. Forms: Return to Work
[2018-12-17 10:37] LABS: APPEARANCE,URINE SLIGHTLY-CLOUDY; BILIRUBIN,URINE NEGATIVE (NEGATIVE); COLOR,URINE AMBER; GLUCOSE, URINE NEGATIVE (NEGATIVE); KETONES,URINE NEGATIVE (NEGATIVE); LEUKOCYTE ESTERASE,URINE NEGATIVE (NEGATIVE); NITRITE,URINE NEGATIVE (NEGATIVE); PROTEIN,URINE NEGATIVE (NEGATIVE); URINE SPECIFIC GRAVITY 1.035
[2018-12-17 10:56] VITALS: BP 132/77
== END 2018-12-17 10:56 | disposition home or self-care (01) ==
LOC: ER 06:26
DX: R42 Dizziness and giddiness (principal); E16.2 Hypoglycemia, unspecified; F17.210 Nicotine dependence, cigarettes, uncomplicated; E78.00 Pure hypercholesterolemia, unspecified; J44.9 Chronic obstructive pulmonary disease, unspecified; Z91.013 Allergy to seafood; Z88.6 Allergy status to analgesic agent; Z86.718 Personal history of other venous thrombosis and embolism; Z98.84 Bariatric surgery status
CPT/HCPCS: 36415; 80053; 81001; 82962; 85025; 99283

== ENCOUNTER 2019-02-06 14:31 | Emergency (ER) | payer SELFPAY ==
[2019-02-06 14:38] VITALS: BP 144/80
[2019-02-06] MEDS ORDERED: ALBUTEROL SULFATE HFA (90 MCG/PUFF) 8 GM MDI (1 MDI/ER DISP) IH PRN (14:55)
--- NOTE | 2019-02-06 14:57 | ER Document Report ---
ED Medical Screen (RME) - General Chief Complaint: Chest Congestion Stated Complaint: CONGESTION Time Seen by Provider: 02/06/19 14:46 Notes: Patient is a 28-year-old male who presents to the emergency department with a chief complaint of nasal congestion, cough, and chills. Patient states that a week ago he started having rhinorrhea and progressively has gotten thicker mucus. Patient admits to dark yellow mucus that he coughs up. Patient admits to having some chills. He was taking [id number] medications and Lizzie to help with symptoms, but has not had any relief. Patient also has asthma. He took a breathing treatment this morning. He does not have a rescue inhaler at home. Patient has history of pneumonia in the past. Exam: Diminished lung sounds in bases bilaterally. I have greeted and performed a rapid initial assessment of this patient. A comprehensive ED assessment and evaluation of the patient, analysis of test results and completion of medical decision making process will be conducted by an additional ED providers. TRAVEL OUTSIDE OF THE [place] IN LAST 30 DAYS: No - Related Data Allergies/Adverse Reactions: iodine [Iodine] Allergy (Severe, Verified 05/27/18 08:00) oxycodone HCl [From Percocet] Allergy (Severe, Verified 05/27/18 08:00) fish derived [Fish derived] Allergy (Verified 05/27/18 08:00) Shellfish * [Shellfish] Allergy (Verified 05/27/18 08:00) ibuprofen [Ibuprofen] Adverse Reaction (Severe, Verified 05/27/18 08:00) bleeding Past Medical History - Social History Chew tobacco use (# tins/day): No Frequency of alcohol use: None Drug Abuse: None Family history: Hypertension, Malignancy - Past Medical History Cardiac Medical History: Reports: Hx DVT - Possible history; has undergone vena caval filter implant., Hx Hypercholesterolemia, Hx Hypertension - Resolved after bariatric surgery Denies: Hx Atrial Fibrillation, Hx Congestive Heart Failure, Hx Pulmonary Embolism Pulmonary Medical History: Reports: Hx Asthma, Hx COPD, Hx Pneumonia, Hx Sleep Apnea - Resolved after bariatric surgery Neurological Medical History: Denies: Hx Seizures Endocrine Medical History: Reports: Hx Diabetes Mellitus Type 2 - Resolved after bariatric surgery. Denies: Hx Diabetes Mellitus Type 1, Hx Hyperthyroidism, Hx Hypothyroidism Renal/ Medical History: Denies: Hx Peritoneal Dialysis GI Medical History: Reports: Hx Gastroesophageal Reflux Disease, Hx Irritable Bowel, Hx Ulcer. Denies: Hx Cirrhosis, Hx Hepatitis Musculoskeltal Medical History: Denies Hx Arthritis, Reports Hx Musculoskeletal Trauma Skin Medical History: Reports Hx Cellulitis Psychiatric Medical History: Reports: Hx Anxiety, Hx Attention Deficit Hyperactivity Disorder, Hx Depression Traumatic Medical History: Reports: Hx Fractures - 5th finger Infectious Medical History: Denies: Hx C-Diff, Hx Hepatitis, Hx MRSA Past Surgical History: Reports: Hx Abdominal Surgery - gastric bypass, Hx Bowel Surgery - hernia repair, Hx Gastric Bypass Surgery, Hx Inguinal Hernia, Other - Vena caval filter implant. History of surgery for perforated ulcer. - Immunizations Immunizations up to date: Yes Hx Diphtheria, Pertussis, Tetanus Vaccination: Yes Physical Exam - Vital signs Vitals: Temp Pulse Resp BP Pulse Ox 98.4 F 68 18 144/80 H 100 02/06/19 14:38 02/06/19 14:38 02/06/19 14:38 02/06/19 14:38 02/06/19 14:38 Course - Vital Signs Vital signs: Temp Pulse Resp BP Pulse Ox 98.4 F 68 18 144/80 H 100 02/06/19 14:38 02/06/19 14:38 02/06/19 14:38 02/06/19 14:38 02/06/19 14:38
--- NOTE | 2019-02-06 15:42 | RADIOLOGY REPORT (SQ) ---
EXAM DESCRIPTION: CHEST SINGLE VIEW COMPLETED DATE/TIME: 02/06/2019 3:33 pm REASON FOR STUDY: cough/congestion x1 week COMPARISON: 03/24/2018 EXAM PARAMETERS: NUMBER OF VIEWS: One view. TECHNIQUE: Single frontal radiographic view of the chest acquired. RADIATION DOSE: NA LIMITATIONS: None. FINDINGS: LUNGS AND PLEURA: No opacities, masses or pneumothorax. No pleural effusion. MEDIASTINUM AND HILAR STRUCTURES: No masses. Contour normal. HEART AND VASCULAR STRUCTURES: Heart normal in size. Normal vasculature. BONES: No acute findings. HARDWARE: None in the chest. OTHER: No other significant finding. IMPRESSION: NO ACUTE RADIOGRAPHIC FINDING IN THE CHEST. TECHNICAL DOCUMENTATION: JOB ID: [id number] [employer]- All Rights Reserved Reading location - IP/workstation name: [email or web address]
[2019-02-06] MEDS ORDERED: PREDNISONE 20 MG TABLET PO ONE (15:52)
--- NOTE | 2019-02-06 15:57 | ER Document Report ---
ED Respiratory Problem - General Chief Complaint: Congestion Stated Complaint: CONGESTION Time Seen by Provider: 02/06/19 14:46 Notes: 28-year-old male with history of asthma who presents to the emergency department with a chief complaint of nasal congestion, productive cough, and chills. Patient states that a week ago he started having rhinorrhea and progressively has gotten thicker mucus. Patient admits to having some chills and intermittent fevers over the last week. States he has some sinus pressure. He was taking [id number] medications and Lizzie to help with symptoms, but has not had any relief. He took a breathing treatment this morning. He does not have a rescue inhaler at home. Patient has history of pneumonia in the past. TRAVEL OUTSIDE OF THE [place] IN LAST 30 DAYS: No - Related Data Allergies/Adverse Reactions: iodine [Iodine] Allergy (Severe, Verified 02/06/19 14:56) oxycodone HCl [From Percocet] Allergy (Severe, Verified 02/06/19 14:56) fish derived [Fish derived] Allergy (Verified 02/06/19 14:56) Shellfish * [Shellfish] Allergy (Verified 02/06/19 14:56) ibuprofen [Ibuprofen] Adverse Reaction (Severe, Verified 02/06/19 14:56) bleeding Past Medical History - Social History Smoking Status: Current Every Day Smoker Chew tobacco use (# tins/day): No Frequency of alcohol use: None Drug Abuse: None Family History: Reviewed & Not Pertinent, Arthritis, CAD, Hypertension, Malignancy, Other - Seizures Patient has suicidal ideation: No Patient has homicidal ideation: No - Past Medical History Cardiac Medical History: Reports: Hx DVT - Possible history; has undergone vena caval filter implant., Hx Hypercholesterolemia, Hx Hypertension - Resolved after bariatric surgery Denies: Hx Atrial Fibrillation, Hx Congestive Heart Failure, Hx Pulmonary Embolism Pulmonary Medical History: Reports: Hx Asthma, Hx COPD, Hx Pneumonia, Hx Sleep Apnea - Resolved after bariatric surgery Neurological Medical History: Denies: Hx Seizures Endocrine Medical History: Reports: Hx Diabetes Mellitus Type 2 - Resolved after bariatric surgery. Denies: Hx Diabetes Mellitus Type 1, Hx Hyperthyroidism, Hx Hypothyroidism Renal/ Medical History: Denies: Hx Peritoneal Dialysis GI Medical History: Reports: Hx Gastroesophageal Reflux Disease, Hx Irritable Bowel, Hx Ulcer. Denies: Hx Cirrhosis, Hx Hepatitis Musculoskeletal Medical History: Denies Hx Arthritis, Reports Hx Musculoskeletal Trauma Skin Medical History: Reports Hx Cellulitis Psychiatric Medical History: Reports: Hx Anxiety, Hx Attention Deficit Hyperactivity Disorder, Hx Depression Traumatic Medical History: Reports: Hx Fractures - 5th finger Infectious Medical History: Denies: Hx C-Diff, Hx Hepatitis, Hx MRSA Past Surgical History: Reports: Hx Abdominal Surgery - gastric bypass, Hx Bowel Surgery - hernia repair, Hx Gastric Bypass Surgery, Hx Inguinal Hernia, Other - Vena caval filter implant. History of surgery for perforated ulcer. - Immunizations Immunizations up to date: Yes Hx Diphtheria, Pertussis, Tetanus Vaccination: Yes Hx Pneumococcal Vaccination: 01/23/11 Review of Systems - Review of Systems Constitutional: See HPI EENT: See HPI Cardiovascular: No symptoms reported Respiratory: See HPI Gastrointestinal: No symptoms reported Genitourinary: No symptoms reported Male Genitourinary: No symptoms reported Musculoskeletal: No symptoms reported Skin: No symptoms reported Hematologic/Lymphatic: No symptoms reported Neurological/Psychological: No symptoms reported Physical Exam - Vital signs Vitals: Temp Pulse Resp BP Pulse Ox 98.4 F 68 18 144/80 H 100 02/06/19 14:38 02/06/19 14:38 02/06/19 14:38 02/06/19 14:38 02/06/19 14:38 - Notes Notes: PHYSICAL EXAMINATION: Reviewed vital signs and charting by RN GENERAL: Alert, interacts well. No acute distress. HEAD: Normocephalic, atraumatic. EYES: Pupils equal and round. Extraocular movements intact. ENT: Oral mucosa moist, tongue midline. NECK: Full range of motion. Trachea midline. LUNGS: Clear to auscultation bilaterally, no wheezes, rales, or rhonchi. No respiratory distress. HEART: Regular rate and rhythm. No murmur ABDOMEN: soft, non-tender. No distention. Bowel sounds present EXTREMITIES: Moves all 4 extremities spontaneously. No edema, No cyanosis. PSYCH: Normal affect, normal mood. SKIN: Warm, dry, normal turgor. No rashes or lesions noted. Course - Re-evaluation Re-evalutation: 02/06/19 15:56 Presentation is most consistent with a viral upper respiratory infection. Patient is overall well appearance, vitals within normal limits, well-hydrated. Patient denies any headache, neck pain, and has no evidence of meningismus on examination. Lungs are clear bilaterally. No evidence of respiratory distress. Based on clinical exam and history, I do not suspect an acute pneumonia, meningitis, strep pharyngitis, or an acute encephalitis. CBC did not have leukocytosis and chest consolidation or pulmonary infiltrate. Will discharge patient with return precautions and followup recommendations. They are in agreement this plan have verbalized understanding return precautions. - Vital Signs Vital signs: Temp Pulse Resp BP Pulse Ox 98.4 F 68 18 144/80 H 100 02/06/19 14:38 02/06/19 14:38 02/06/19 14:38 02/06/19 14:38 02/06/19 14:38 - Laboratory Result Diagrams: 02/06/19 15:09 Discharge - Discharge Clinical Impression: Upper respiratory infection Qualifiers: URI type: unspecified viral URI Qualified Code(s): J06.9 - Acute upper respiratory infection, unspecified Condition: Good Disposition: HOME, SELF-CARE Instructions: Upper Respiratory Illness ([facility]) Additional Instructions: You have been seen and treated in the emergency department for an upper respiratory infection. These are typically caused by viruses and do not respond to antibiotics. Your rapid strep was negative. Please make sure you using any prescription medications as prescribed. Please also continue to take [id number] Tylenol and Motrin for your generalized body aches, fever. Please stay well-hydrated and get plenty of rest. Please follow-up with your primary care provider in the next 24 to 48 hours. Please return to the emergency room should you have any other concerning symptoms. Prescriptions: Prednisone [Deltasone 20 mg Tablet] 3 tab PO DAILY 5 Days tablet
== END 2019-02-06 17:15 | disposition home or self-care (01) ==
LOC: ER 14:31
DX: J06.9 Acute upper respiratory infection, unspecified (principal); R09.81 Nasal congestion; R05 Cough; R50.9 Fever, unspecified; R51 Headache; F17.200 Nicotine dependence, unspecified, uncomplicated; I10 Essential (primary) hypertension; J44.9 Chronic obstructive pulmonary disease, unspecified; E11.9 Type 2 diabetes mellitus without complications
CPT/HCPCS: 87070; 87880; 71045; J7512; J3490; 87077

== ENCOUNTER 2019-07-07 13:17 | Emergency (ER) | payer SELFPAY ==
[2019-07-07] MEDS ORDERED: NORMAL SALINE 1000 ML 1,000 ML IV PRN (13:27)
--- NOTE | 2019-07-07 13:29 | ER Document Report ---
ED Medical Screen (RME) - General Chief Complaint: Abdominal Pain Stated Complaint: ABDOMINAL PAIN,BACK PAIN Time Seen by Provider: 07/07/19 13:27 Information source: Patient Cannot obtain history due to: Other - This is a 29-year-old male presented to the emergency room today stating he had abdominal pain 6 out of 10 over the course of 4 to 5 days. It is midabdominal radiating around to his back he does states that it hurts more when he urinates. Does go to both sides of his back. TRAVEL OUTSIDE OF THE [place] IN LAST 30 DAYS: No - Related Data Allergies/Adverse Reactions: iodine [Iodine] Allergy (Severe, Verified 07/07/19 13:21) oxycodone HCl [From Percocet] Allergy (Severe, Verified 07/07/19 13:21) fish derived [Fish derived] Allergy (Verified 07/07/19 13:21) Shellfish * [Shellfish] Allergy (Verified 07/07/19 13:21) ibuprofen [Ibuprofen] Adverse Reaction (Severe, Verified 07/07/19 13:21) bleeding Past Medical History - Social History Family history: Hypertension, Malignancy - Past Medical History Cardiac Medical History: Reports: Hx DVT - Possible history; has undergone vena caval filter implant., Hx Hypercholesterolemia, Hx Hypertension - Resolved after bariatric surgery Denies: Hx Atrial Fibrillation, Hx Congestive Heart Failure, Hx Pulmonary Embolism Pulmonary Medical History: Reports: Hx Asthma, Hx COPD, Hx Pneumonia, Hx Sleep Apnea - Resolved after bariatric surgery Neurological Medical History: Denies: Hx Seizures Endocrine Medical History: Reports: Hx Diabetes Mellitus Type 2 - Resolved after bariatric surgery. Denies: Hx Diabetes Mellitus Type 1, Hx Hyperthyroidism, Hx Hypothyroidism Renal/ Medical History: Denies: Hx Peritoneal Dialysis GI Medical History: Reports: Hx Gastroesophageal Reflux Disease, Hx Irritable Bowel, Hx Ulcer. Denies: Hx Cirrhosis, Hx Hepatitis Musculoskeltal Medical History: Denies Hx Arthritis, Reports Hx Musculoskeletal Trauma Skin Medical History: Reports Hx Cellulitis Psychiatric Medical History: Reports: Hx Anxiety, Hx Attention Deficit Hyperactivity Disorder, Hx Depression Traumatic Medical History: Reports: Hx Fractures - 5th finger Infectious Medical History: Denies: Hx C-Diff, Hx Hepatitis, Hx MRSA Past Surgical History: Reports: Hx Abdominal Surgery - gastric bypass, Hx Bowel Surgery - hernia repair, Hx Gastric Bypass Surgery, Hx Inguinal Hernia, Other - Vena caval filter implant. History of surgery for perforated ulcer. - Immunizations Immunizations up to date: Yes Hx Diphtheria, Pertussis, Tetanus Vaccination: Yes Physical Exam - Vital signs Vitals: Temp Pulse Resp BP Pulse Ox 98 F 85 18 153/71 H 100 07/07/19 13:21 07/07/19 13:21 07/07/19 13:21 07/07/19 13:21 07/07/19 13:21 Course - Vital Signs Vital signs: Temp Pulse Resp BP Pulse Ox 98 F 85 18 153/71 H 100 07/07/19 13:21 07/07/19 13:21 07/07/19 13:21 07/07/19 13:21 07/07/19 13:21
[2019-07-07 14:32] LABS: APPEARANCE,URINE CLEAR; BILIRUBIN,URINE NEGATIVE (NEGATIVE); COLOR,URINE YELLOW; GLUCOSE, URINE NEGATIVE (NEGATIVE); KETONES,URINE NEGATIVE (NEGATIVE); LEUKOCYTE ESTERASE,URINE NEGATIVE (NEGATIVE); NITRITE,URINE NEGATIVE (NEGATIVE); PROTEIN,URINE NEGATIVE (NEGATIVE); URINE SPECIFIC GRAVITY 1.017; UROBILINOGEN,URINE NEGATIVE mg/dL (<2.0)
[2019-07-07 14:37] LABS: ABSOLUTE EOSINOPHILS # (AUTO) 0.3 10^3/uL (0.0-0.6); ABSOLUTE LYMPHOCYTES (AUTO) 1.7 10^3/uL (0.5-4.7); ABSOLUTE MONOCYTES (AUTO) 0.6 10^3/uL (0.1-1.4); ABSOLUTE NEUT (AUTO) 5.7 10^3/uL (1.7-8.2); BASOPHILS % (AUTO) 0.3 % (0-2); HEMOGLOBIN 16.3 g/dL (13.5-17.0); LYMPHOCYTES % (AUTO) 20.3 % (13-45); MEAN CORPUSCULAR HGB CONC 35.5 g/dL (32.0-36.0); MEAN CORPUSCULAR VOLUME 93 fl (80-97); MONOCYTES % (AUTO) 7.2 % (3-13); PLATELET COUNT 234 10^3/uL (150-450); RED BLOOD COUNT 4.94 10^6/uL (4.35-5.55); RED CELL DISTRIBUTION WIDTH 13.4 % (11.5-14.0); SEGMENTED NEUTROPHILS % (AUTO) 69.2 % (42-78); TOTAL CELLS COUNTED % (AUTO) 100 %; WHITE BLOOD COUNT 8.3 10^3/uL (4.0-10.5)
[2019-07-07 14:46] LABS: ALBUMIN 3.8 g/dL (3.5-5.0); ALKALINE PHOSPHATASE 50 U/L (38-126); ANION GAP 7 (5-19); ASPARTATE AMINO TRANSFERASE 29 U/L (17-59); BILIRUBIN,DIRECT 0.3 mg/dL (0.0-0.4); BILIRUBIN,TOTAL 0.4 mg/dL (0.2-1.3); BLOOD UREA NITROGEN 12 mg/dL (7-20); CALCIUM 9.2 mg/dL (8.4-10.2); CARBON DIOXIDE 28 mmol/L (22-30); CHLORIDE 104 mmol/L (98-107); POTASSIUM 4.2 mmol/L (3.6-5.0); TOTAL PROTEIN 6.5 g/dL (6.3-8.2)
[2019-07-07 14:49] LABS: GLUCOSE 63 mg/dL (75-110)
[2019-07-07] MEDS ORDERED: DEXTROSE 50%-WATER 25 GM/50 ML DISP.SYRIN IV ONE (14:52)
[2019-07-07] MEDS ORDERED: ONDANSETRON HCL INJ/PF 4 MG/2 ML SDV IV ONE (15:10)
[2019-07-07] MEDS ORDERED: MORPHINE SULFATE 10 MG/ML INJ IV ONE ×4 (15:10→21:15)
[2019-07-07] MEDS ORDERED: FAMOTIDINE INJ/PF 20 MG/2 ML SDV IV ONE (15:12)
[2019-07-07] MEDS ORDERED: DIPHENHYDRAMINE HCL 25 MG CAPSULE PO ONE (15:12)
[2019-07-07] MEDS ORDERED: METHYLPREDNISOLONE INJ 40 MG/1 ML SDV IV ONE (15:12)
--- NOTE | 2019-07-07 15:28 | ER Document Report ---
ED GI/ - General TRAVEL OUTSIDE OF THE [place] IN LAST 30 DAYS: No - Related Data Home Medications: vitamins. allergy. biotine. iron. vitamin c. bronchiodilator <DYAN MEYER - Last Filed: 07/07/19 19:41> <MENA JACOBS - Last Filed: 07/08/19 07:49> - General Chief Complaint: Abdominal Pain Stated Complaint: ABDOMINAL PAIN,BACK PAIN Time Seen by Provider: 07/07/19 13:27 Notes: CHIEF COMPLAINT: Abdominal pain HPI: 29-year-old male presenting to the emergency department complaining of 3 to 4 days of mid abdominal pain that radiates around through the back. Patient reports a prior history of Maura-en-Y gastric bypass years ago in [place], also with history of gastric ulcer perforation 2 years ago also treated in [facility]. Does not consistently follow with his GI physicians. States he was told previously he had history of gallstones but they could not take his gallbladder out because of scar tissue. States he has had nausea no fevers. States he is passing stools. ROS: See HPI - all other systems were reviewed and are otherwise negative Constitutional: no fever Eyes: no drainage, no blurred vision ENT: no runny nose, no sore throat Cardiovascular: no chest pain Resp: no SOB, no cough GI: no vomiting, no diarrhea, + abdominal pain, positive nausea : no dysuria Integumentary: no rash Allergy: no hives Musculoskeletal: no extremity pain or swelling Neurological: no numbness/tingling, no weakness MEDICATIONS: I agree with the patient medications as charted by the RN. ALLERGIES: I agree with the allergies as charted by the RN. PAST MEDICAL HISTORY/PAST SURGICAL HISTORY: Reviewed and agree as charted by RN. SOCIAL HISTORY: Reviewed and agree as charted by RN. FAMILY HISTORY: No significant familial comorbid conditions directly related to patient complaint EXAM: Reviewed vital signs as charted by RN. CONSTITUTIONAL: Alert and oriented and responds appropriately to questions. Well-appearing; well-nourished, moderately uncomfortable HEAD: Normocephalic; atraumatic EYES: PERRL; Conjunctivae clear, sclerae non-icteric ENT: normal nose; no rhinorrhea; moist mucous membranes; pharynx without lesions noted, no uvula edema or deviation, no tonsillar hypertrophy, phonation normal NECK: Supple without meningismus; non-tender; no cervical lymphadenopathy, no masses CARD: RRR; no murmurs, no clicks, no rubs, no gallops; symmetric distal pulses RESP: Normal chest excursion without splinting or tachypnea; breath sounds clear and equal bilaterally; no wheezes, no rhonchi, no rales, pulse oximetry ABD/GI: Normal bowel sounds; non-distended; soft, generalized abdominal tenderness on palpation with moderate tenderness in the right upper quadrant on palpation I can review, no rebound, no guarding; no palpable organomegaly or masses. BACK: The back appears normal and is non-tender to palpation, there is no CVA tenderness EXT: Normal ROM in all joints; non-tender to palpation; no cyanosis, no effusions, no edema SKIN: Normal color for age and race; warm; dry; good turgor; no acute lesions noted NEURO: Moves all extremities equally; Motor and sensory function intact PSYCH: The patient's mood and manner are appropriate. Grooming and personal hygiene are appropriate. MDM: 29-year-old male with complex abdominal history and surgical history presenting with 3 to 4 days of generalized abdominal pain. Initial screening labs done through the triage process did not show acute emergent abnormalities but given his history will obtain CT imaging. Patient has had no problems with CT in the past stating they normally give him Benadryl prior to the CT. (DYAN MEYER) - Related Data Allergies/Adverse Reactions: iodine [Iodine] Allergy (Severe, Verified 07/07/19 13:21) oxycodone HCl [From Percocet] Allergy (Severe, Verified 07/07/19 13:21) fish derived [Fish derived] Allergy (Verified 07/07/19 13:21) Shellfish * [Shellfish] Allergy (Verified 07/07/19 13:21) ibuprofen [Ibuprofen] Adverse Reaction (Severe, Verified 07/07/19 13:21) bleeding Past Medical History - General Information source: Patient - Social History Smoking Status: Current Every Day Smoker Chew tobacco use (# tins/day): No Frequency of alcohol use: Rare Drug Abuse: None Family History: Reviewed & Not Pertinent, Arthritis, CAD, Hypertension, Malignancy, Other - Seizures Patient has suicidal ideation: No Patient has homicidal ideation: No - Past Medical History Cardiac Medical History: Reports: Hx DVT - Possible history; has undergone vena caval filter implant., Hx Hypercholesterolemia, Hx Hypertension - Resolved after bariatric surgery Denies: Hx Atrial Fibrillation, Hx Congestive Heart Failure, Hx Pulmonary Embolism Pulmonary Medical History: Reports: Hx Asthma, Hx COPD, Hx Pneumonia, Hx Sleep Apnea - Resolved after bariatric surgery Neurological Medical History: Denies: Hx Seizures Endocrine Medical History: Reports: Hx Diabetes Mellitus Type 2 - Resolved after bariatric surgery. Denies: Hx Diabetes Mellitus Type 1, Hx Hyperthyroidism, Hx Hypothyroidism Renal/ Medical History: Denies: Hx Peritoneal Dialysis GI Medical History: Reports: Hx Gastroesophageal Reflux Disease, Hx Irritable Bowel, Hx Ulcer. Denies: Hx Cirrhosis, Hx Hepatitis Musculoskeletal Medical History: Denies Hx Arthritis, Reports Hx Musculoskeletal Trauma Skin Medical History: Reports Hx Cellulitis Psychiatric Medical History: Reports: Hx Anxiety, Hx Attention Deficit Hyperactivity Disorder, Hx Depression Traumatic Medical History: Reports: Hx Fractures - 5th finger Infectious Medical History: Denies: Hx C-Diff, Hx Hepatitis, Hx MRSA Past Surgical History: Reports: Hx Abdominal Surgery - gastric bypass, Hx Bowel Surgery - hernia repair, Hx Gastric Bypass Surgery, Hx Inguinal Hernia, Other - Vena caval filter implant. History of surgery for perforated ulcer. - Immunizations Immunizations up to date: Yes Hx Diphtheria, Pertussis, Tetanus Vaccination: Yes Hx Pneumococcal Vaccination: 01/23/11 <DYAN MEYER - Last Filed: 07/07/19 19:41> Physical Exam - Vital signs Vitals: Temp Pulse Resp BP Pulse Ox 98 F 85 18 153/71 H 100 07/07/19 13:21 07/07/19 13:21 07/07/19 13:21 07/07/19 13:21 07/07/19 13:21 Course - Laboratory Result Diagrams: 07/07/19 14:06 07/07/19 14:06 <DYAN MEYER - Last Filed: 07/07/19 19:41> - Laboratory Result Diagrams: 07/07/19 14:06 07/07/19 14:06 <MENA JACOBS - Last Filed: 07/08/19 07:49> - Re-evaluation Re-evalutation: 07/07/19 19:04 Patient having more pain will give Fentanyl/Protonix. Discussed with Dr. Enrique attending. discussed results with patient. CT/Labs normal. concern still for Peptic ulcer given prior perforation. Will discuss with bariatric surgery at [facility]. Will [employer] images. 07/07/19 19:45 Awaiting callback from [facility]. report will be given to oncoming shift to follow-up and disposition (DYAN MEYER) 07/07/19 20:00 Received report from MICHAEL Resendiz. Awaiting callback from [facility]. 07/07/19 20:[address] Vidal, the bariatric surgeon over at [facility]. She will have the patient transferred ED to ED transport. Dr. Alexandro Palmer, the ED attending, has accepted the patient. 07/07/19 21:16 I was informed that transport will be at bedside and within the next 15 minutes. I evaluated the patient and he is stable for transport to [facility]. (MENA JACOBS) - Vital Signs Vital signs: Temp Pulse Resp BP Pulse Ox 98.5 F 59 L 16 123/74 97 07/07/19 21:18 07/07/19 21:18 07/07/19 21:18 07/07/19 21:18 07/07/19 21:18 - Laboratory Laboratory results interpreted by me: 07/07/19 07/07/19 07/07/19 14:06 14:06 15:11 Glucose 63 L POC Glucose 126 H Urine Ascorbic Acid 20 H Discharge <DYNA MEYER - Last Filed: 07/07/19 19:41> - Discharge Admitting Provider: Dr. Palmer/ ED to ED transfer <MENA JACOBS - Last Filed: 07/08/19 07:49> - Discharge Clinical Impression: Abdominal pain Qualifiers: Abdominal location: epigastric Qualified Code(s): R10.13 - Epigastric pain Condition: Good Disposition: [facility]
--- NOTE | 2019-07-07 18:40 | RADIOLOGY REPORT (SQ) ---
EXAM DESCRIPTION: CT ABD/PELVIS WITH IV ORAL COMPLETED DATE/TIME: 07/07/2019 6:06 pm REASON FOR STUDY: abd pain, hx gastric bypass, perforation COMPARISON: 11/22/2016 TECHNIQUE: CT scan of the abdomen and pelvis performed using helical scanning technique with dynamic intravenous contrast injection. Oral contrast. Images reviewed with lung, soft tissue, and bone win dows. Reconstructed coronal and sagittal MPR images reviewed. Delayed images for evaluation of the ur inary system also acquired. All images stored on PACS. All CT scanners at this facility use dose modulation, iterative reconstruction, and/or weight based d osing when appropriate to reduce radiation dose to as low as reasonably achievable (ALARA). [facility]: Dose Right [facility]: CareDose [facility]: Dose Right [facility]: Teradose 4D [facility]: ReachDynamics CONTRAST TYPE AND DOSE: contrast/concentration: Isovue 350.00 mg/ml; Total Contrast Delivered: 100.0 ml; Total Saline Delivered: 59.7 ml RENAL FUNCTION: BUN 12 creatinine 0.58 RADIATION DOSE: CT Rad equipment meets quality standard of care and radiation dose reduction techniq ues were employed. CTDIvol: 16.5 - 19.7 mGy. DLP: 1933 mGy-cm.. LIMITATIONS: None. FINDINGS: LOWER CHEST: No significant findings. No nodules or infiltrates. LIVER: Normal size. No masses. No dilated ducts. SPLEEN: Normal size. No focal lesions. PANCREAS: No masses. No significant calcifications. No adjacent inflammation or peripancreatic fluid collections. Pancreatic duct not dilated. GALLBLADDER: 2 tiny gallstones are present. ADRENAL GLANDS: No significant masses or asymmetry. RIGHT KIDNEY AND URETER: No solid masses. No significant calcifications. No hydronephrosis or hyd roureter. LEFT KIDNEY AND URETER: No solid masses. No significant calcifications. No hydronephrosis or hydr oureter. AORTA AND VESSELS: No aneurysm. No dissection. Renal arteries, SMA, celiac without stenosis. RETROPERITONEUM: No retroperitoneal adenopathy, hemorrhage or masses. BOWEL AND PERITONEAL CAVITY: No masses or inflammatory changes. No free fluid or peritoneal masses. APPENDIX: Not identified. PELVIS: No mass. No free fluid. Normal bladder. ABDOMINAL WALL: No masses. No hernias. BONES: No significant or acute findings. OTHER: An IVC filter is present. IMPRESSION: NO SIGNIFICANT OR ACUTE FINDING IN THE ABDOMEN OR PELVIS ON CT SCAN WITH IV CONTRAST. TECHNICAL DOCUMENTATION: JOB ID: [id number] Quality ID # [id number]: Final reports with documentation of one or more dose reduction techniques (e.g., Au tomated exposure control, adjustment of the mA and/or kV according to patient size, use of iterative reconstruction technique) 2010 [employer]- All Rights Reserved Reading location - IP/workstation name: [email or web address]
[2019-07-07] MEDS ORDERED: PANTOPRAZOLE SODIUM 40 MG VIAL IV ONE (18:59)
[2019-07-07] MEDS ORDERED: FENTANYL CITRATE INJ/PF 100 MCG/2 ML AMPUL IV ONE (18:59)
[2019-07-07] MEDS ORDERED: SUCRALFATE 1 GM TABLET PO ONE (20:17)
[2019-07-07 21:20] VITALS: BP 123/74
== END 2019-07-07 21:40 | disposition short-term general hospital (02) ==
LOC: ER 13:17
DX: R10.13 Epigastric pain (principal); R11.0 Nausea; F17.200 Nicotine dependence, unspecified, uncomplicated; J44.9 Chronic obstructive pulmonary disease, unspecified; Z98.84 Bariatric surgery status; Z79.899 Other long term (current) drug therapy; Z87.11 Personal history of peptic ulcer disease; R10.817 Generalized abdominal tenderness; Z88.6 Allergy status to analgesic agent; Z88.5 Allergy status to narcotic agent; Z91.013 Allergy to seafood
CPT/HCPCS: 96376; 99285; 96361; 96374; 96375; 36415; 82962; 83690; 85025; 80053; 81001; 74177; J3490; J3010; J2920; J2270; C9113; J2405; J7030; S0028

== ENCOUNTER 2019-10-11 13:38 | Emergency (ER) | payer MEDICAID ==
--- NOTE | 2019-10-11 14:12 | ER Document Report ---
ED Medical Screen (RME) - General Stated Complaint: ABDOMINAL PAIN Time Seen by Provider: 10/11/19 14:05 Notes: Patient is a 29-year-old male who presents to the emergency department with a chief complaint of abdominal pain. Patient states that he has had pain for the past week. Patient has history of a Maura-en-Y gastric bypass in [place]. And also has history of a gastric ulcer perforation. He was sent to [facility] back in June and they did emergency surgery at that time. Patient states that he feels nauseous. Denies any vomiting. Exam: Soft, moderately tender abdomen. I have greeted and performed a rapid initial assessment of this patient. A comprehensive ED assessment and evaluation of the patient, analysis of test results and completion of medical decision making process will be conducted by an additional ED providers. TRAVEL OUTSIDE OF THE [place] IN LAST 30 DAYS: No - Related Data Allergies/Adverse Reactions: iodine [Iodine] Allergy (Severe, Verified 07/07/19 13:21) oxycodone HCl [From Percocet] Allergy (Severe, Verified 07/07/19 13:21) fish derived [Fish derived] Allergy (Verified 07/07/19 13:21) Shellfish * [Shellfish] Allergy (Verified 07/07/19 13:21) ibuprofen [Ibuprofen] Adverse Reaction (Severe, Verified 07/07/19 13:21) bleeding Past Medical History - Social History Family history: Hypertension, Malignancy - Past Medical History Cardiac Medical History: Reports: Hx DVT - Possible history; has undergone vena caval filter implant., Hx Hypercholesterolemia, Hx Hypertension - Resolved after bariatric surgery Denies: Hx Atrial Fibrillation, Hx Congestive Heart Failure, Hx Pulmonary Embolism Pulmonary Medical History: Reports: Hx Asthma, Hx COPD, Hx Pneumonia, Hx Sleep Apnea - Resolved after bariatric surgery Neurological Medical History: Denies: Hx Seizures Endocrine Medical History: Reports: Hx Diabetes Mellitus Type 2 - Resolved after bariatric surgery. Denies: Hx Diabetes Mellitus Type 1, Hx Hyperthyroidism, Hx Hypothyroidism Renal/ Medical History: Denies: Hx Peritoneal Dialysis GI Medical History: Reports: Hx Gastroesophageal Reflux Disease, Hx Irritable Bowel, Hx Ulcer. Denies: Hx Cirrhosis, Hx Hepatitis Musculoskeltal Medical History: Denies Hx Arthritis, Reports Hx Musculoskeletal Trauma Skin Medical History: Reports Hx Cellulitis Psychiatric Medical History: Reports: Hx Anxiety, Hx Attention Deficit Hyperactivity Disorder, Hx Depression Traumatic Medical History: Reports: Hx Fractures - 5th finger Infectious Medical History: Denies: Hx C-Diff, Hx Hepatitis, Hx MRSA Past Surgical History: Reports: Hx Abdominal Surgery - gastric bypass, Hx Bowel Surgery - hernia repair, Hx Gastric Bypass Surgery, Hx Inguinal Hernia, Other - Vena caval filter implant. History of surgery for perforated ulcer. - Immunizations Immunizations up to date: Yes Hx Diphtheria, Pertussis, Tetanus Vaccination: Yes Physical Exam - Vital signs Vitals: Temp Pulse Resp BP Pulse Ox 98.0 F 79 16 143/65 H 95 10/11/19 13:50 10/11/19 13:50 10/11/19 13:50 10/11/19 13:50 10/11/19 13:50 Course - Vital Signs Vital signs: Temp Pulse Resp BP Pulse Ox 98.0 F 79 16 143/65 H 95 10/11/19 13:50 10/11/19 13:50 10/11/19 13:50 10/11/19 13:50 10/11/19 13:50
[2019-10-11] MEDS ORDERED: ONDANSETRON HCL INJ/PF 4 MG/2 ML SDV IV ONE ×2 (14:13→18:45)
[2019-10-11] MEDS ORDERED: NORMAL SALINE 1000 ML 1,000 ML IV ONE (14:13)
[2019-10-11 14:48] LABS: ABSOLUTE EOSINOPHILS # (AUTO) 0.3 10^3/uL (0.0-0.6); ABSOLUTE LYMPHOCYTES (AUTO) 2.2 10^3/uL (0.5-4.7); ABSOLUTE MONOCYTES (AUTO) 0.5 10^3/uL (0.1-1.4); ABSOLUTE NEUT (AUTO) 5.4 10^3/uL (1.7-8.2); BASOPHILS % (AUTO) 0.3 % (0-2); EOSINOPHILS % (AUTO) 3.9 % (0-6); HEMATOCRIT 46.5 % (37.9-51.0); HEMOGLOBIN 16.6 g/dL (13.5-17.0); LYMPHOCYTES % (AUTO) 26.2 % (13-45); MEAN CORPUSCULAR HEMOGLOBIN 33.6 pg (27.0-33.4); MEAN CORPUSCULAR HGB CONC 35.7 g/dL (32.0-36.0); MEAN CORPUSCULAR VOLUME 94 fl (80-97); MONOCYTES % (AUTO) 6.4 % (3-13); PLATELET COUNT 229 10^3/uL (150-450); RED BLOOD COUNT 4.94 10^6/uL (4.35-5.55); RED CELL DISTRIBUTION WIDTH 13.4 % (11.5-14.0); SEGMENTED NEUTROPHILS % (AUTO) 63.2 % (42-78); TOTAL CELLS COUNTED % (AUTO) 100 %; WHITE BLOOD COUNT 8.5 10^3/uL (4.0-10.5)
[2019-10-11 14:57] LABS: APPEARANCE,URINE CLEAR; BILIRUBIN,URINE NEGATIVE (NEGATIVE); COLOR,URINE YELLOW; GLUCOSE, URINE NEGATIVE (NEGATIVE); KETONES,URINE NEGATIVE (NEGATIVE); LEUKOCYTE ESTERASE,URINE NEGATIVE (NEGATIVE); NITRITE,URINE NEGATIVE (NEGATIVE); PROTEIN,URINE NEGATIVE (NEGATIVE); URINE SPECIFIC GRAVITY 1.024; UROBILINOGEN,URINE NEGATIVE mg/dL (<2.0)
[2019-10-11 15:09] LABS: ALBUMIN 3.8 g/dL (3.5-5.0); ALKALINE PHOSPHATASE 44 U/L (38-126); ASPARTATE AMINO TRANSFERASE 27 U/L (17-59); BILIRUBIN,TOTAL 0.5 mg/dL (0.2-1.3); BLOOD UREA NITROGEN 13 mg/dL (7-20); CALCIUM 9.2 mg/dL (8.4-10.2); GLUCOSE 89 mg/dL (75-110); POTASSIUM 4.6 mmol/L (3.6-5.0); TOTAL PROTEIN 6.2 g/dL (6.3-8.2)
[2019-10-11 15:14] LABS: CARBON DIOXIDE 30 mmol/L (22-30); CHLORIDE 103 mmol/L (98-107)
[2019-10-11 15:18] LABS: ANION GAP 2 (5-19)
[2019-10-11] MEDS ORDERED: HYDROMORPHONE HCL INJ/PF 2 MG/ML AMPULE IV ONE ×2 (17:56→19:35)
--- NOTE | 2019-10-11 18:10 | ER Document Report ---
ED General - General Chief Complaint: Abdominal Pain Stated Complaint: ABDOMINAL PAIN Time Seen by Provider: 10/11/19 14:05 Notes: 29-year-old male presents emergency department complaining of intermittent abdominal pain that is been worsening for the past week and has now become constant. He states that it starts epigastrically and radiates around to his back, it is like a cramping andres type of pain. He admits nausea but denies any vomiting. Complains of steadily decreasing bowel movements for the past week, states he started taking stool softeners but it is not really helping. Patient states the pain feels identical to when he had "his intestines tied in knots" and had to have surgery to untwist them in May 2019 in [facility]. Patient also has a history of Maura-en-Y gastric bypass in [place] in 2012 and a perforated gastric ulcer in 2016. Denies any fevers, denies any blood in his stool. TRAVEL OUTSIDE OF THE [place] IN LAST 30 DAYS: No - Related Data Allergies/Adverse Reactions: iodine [Iodine] Allergy (Severe, Verified 07/07/19 13:21) oxycodone HCl [From Percocet] Allergy (Severe, Verified 07/07/19 13:21) fish derived [Fish derived] Allergy (Verified 07/07/19 13:21) Shellfish * [Shellfish] Allergy (Verified 07/07/19 13:21) ibuprofen [Ibuprofen] Adverse Reaction (Severe, Verified 07/07/19 13:21) bleeding Past Medical History - General Information source: Patient - Social History Smoking Status: Current Every Day Smoker Chew tobacco use (# tins/day): No Frequency of alcohol use: None Drug Abuse: None Family History: Arthritis, CAD, Hypertension, Malignancy, Other - Seizures Patient has homicidal ideation: No - Past Medical History Cardiac Medical History: Reports: Hx DVT - Possible history; has undergone vena caval filter implant., Hx Hypercholesterolemia, Hx Hypertension - Resolved after bariatric surgery Denies: Hx Atrial Fibrillation, Hx Congestive Heart Failure, Hx Pulmonary Embolism Pulmonary Medical History: Reports: Hx Asthma, Hx COPD, Hx Pneumonia, Hx Sleep Apnea - Resolved after bariatric surgery Neurological Medical History: Denies: Hx Seizures Endocrine Medical History: Reports: Hx Diabetes Mellitus Type 2 - Resolved after bariatric surgery. Denies: Hx Diabetes Mellitus Type 1, Hx Hyperthyroidism, Hx Hypothyroidism Renal/ Medical History: Denies: Hx Peritoneal Dialysis GI Medical History: Reports: Hx Gastroesophageal Reflux Disease, Hx Irritable Bowel, Hx Ulcer. Denies: Hx Cirrhosis, Hx Hepatitis Musculoskeletal Medical History: Denies Hx Arthritis, Reports Hx Musculoskeletal Trauma Skin Medical History: Reports Hx Cellulitis Psychiatric Medical History: Reports: Hx Anxiety, Hx Attention Deficit Hyperactivity Disorder, Hx Depression Traumatic Medical History: Reports: Hx Fractures - 5th finger Infectious Medical History: Denies: Hx C-Diff, Hx Hepatitis, Hx MRSA Past Surgical History: Reports: Hx Abdominal Surgery - gastric bypass, Hx Bowel Surgery - hernia repair, Hx Gastric Bypass Surgery, Hx Inguinal Hernia, Other - Vena caval filter implant. History of surgery for perforated ulcer. - Immunizations Immunizations up to date: Yes Hx Diphtheria, Pertussis, Tetanus Vaccination: Yes Hx Pneumococcal Vaccination: 01/23/11 Review of Systems - Review of Systems Constitutional: No symptoms reported Gastrointestinal: See HPI Genitourinary: No symptoms reported -: Yes All other systems reviewed and negative Physical Exam - Vital signs Vitals: Temp 97.8 F 10/11/19 13:38 Interpretation: Normal - Notes Notes: GENERAL: Alert, interacts well. No acute distress. HEAD: Normocephalic, atraumatic EYES: Pupils equal, round and reactive to light, extraocular movements intact. ENT: Oral mucosa moist, tongue midline. NECK: Full range of motion, supple, trachea midline. LUNGS: Clear to auscultation bilaterally, no wheezes, rales or rhonchi, no respiratory distress. HEART: Regular rate and rhythm, no murmurs, gallops, rubs. ABDOMEN: Semifirm, nondistended, tender to palpation diffusely but primarily in the epigastrium, there is a diastases noted underneath of the midline epigastric surgical scar, no hernia protrudes through here, this is the area of greatest tenderness, there is a small amount of voluntary guarding, no rigidity, no rebounding, bowel sounds are still present. EXTREMITIES: Moves all 4 extremities spontaneously. No cyanosis. NEUROLOGICAL: Alert and oriented x3, normal speech. PSYCH: Normal mood, normal affect. SKIN: Warm, Dry, normal turgor. Course - Re-evaluation Re-evalutation: 10/11/19 21:47 CBC was unremarkable, CMP shows slightly low sodium otherwise unremarkable, urinalysis unremarkable, CT scan shows no acute process.. Abdomen/Pelvis CT 10/11/19 00:00 IMPRESSION: No acute abdominal or pelvic findings. Given the patient's history of Maura-en-Y bypass surgery and prior perforated gastric ulcer after the Maura-en-Y bypass surgery I suspect that this patient's symptoms are coming from gastritis or possible nonperforated ulcer. Patient is instructed to start taking Nexium and Carafate. Patient was supposed to be on Nexium already but stated it used to be too expensive. Now that he has insurance he is willing to try taking it again. Patient is also instructed to follow-up with his bariatric surgery team as soon as possible. He will likely benefit from an EGD but does not need to be done emergently this evening. - Vital Signs Vital signs: Temp Pulse Resp BP Pulse Ox 98.0 F 79 16 143/65 H 95 10/11/19 13:50 10/11/19 13:50 10/11/19 13:50 10/11/19 13:50 10/11/19 13:50 - Laboratory Result Diagrams: 10/11/19 14:30 10/11/19 14:30 Laboratory results interpreted by me: 10/11/19 10/11/19 14:30 14:30 MCH 33.6 H Sodium 135.3 L Anion Gap 2 L Total Protein 6.2 L Discharge - Discharge Clinical Impression: Epigastric abdominal pain Condition: Stable Disposition: HOME, SELF-CARE Additional Instructions: We did not find any evidence of obstruction or perforated ulcer. I do suspect that she has gastritis or an ulcer going on right now that is not actively bleeding. Please take the Nexium and the Carafate as directed. Please call your bariatric surgery team as soon as possible, they will likely want to perform an EGD at some point. Please return to the emergency department for fevers, inability to have a bowel movement or pass gas or any new or concerning symptoms. Prescriptions: Sucralfate [Carafate Susp 1 Gm/10 Ml Udcup] 1 gm PO ACHS #60 udc Esomeprazole Magnesium [Nexium] 20 mg PO BID #60 capsule.
[2019-10-11] MEDS ORDERED: DIPHENHYDRAMINE HCL 50 MG/ML VIAL IV ONE (18:55)
[2019-10-11] MEDS ORDERED: FAMOTIDINE INJ/PF 20 MG/2 ML SDV IV ONE (18:56)
[2019-10-11] MEDS ORDERED: METHYLPREDNISOLONE INJ 125 MG/2 ML SDV IV ONE (18:56)
--- NOTE | 2019-10-11 20:44 | RADIOLOGY REPORT (SQ) ---
CT ABDOMEN PELVIS WITH IV CONTRAST HISTORY: Abdominal pain. COMPARISON: 07/07/2019 TECHNIQUE: CT scan of the abdomen and pelvis was performed with IV contrast. This exam was performed according to our departmental dose-optimization program, which includes automated exposure control, adjustment of the mA and/or kV according to patient size and/or use of iterative reconstruction technique. FINDINGS: The lung bases are clear. No pleural or pericardial effusions. There is no hiatal hernia. The liver, spleen, pancreas, gallbladder, adrenal glands, and kidneys are unremarkable. No hydronephrosis or urinary stones are seen. The pelvic organs are also unremarkable. There is oral contrast seen in the small bowel. No evidence of bowel obstruction or inflammation. Prior gastric surgery is noted without acute complications identified. Appendix is not clearly seen. No intraperitoneal free fluid or free air is seen. The aorta is unremarkable. There is an infrarenal IVC filter present. No hernia is identified. The bony structures are grossly preserved. IMPRESSION: No acute abdominal or pelvic findings.
[2019-10-11 22:59] VITALS: BP 122/78
== END 2019-10-11 22:57 | disposition home or self-care (01) ==
LOC: ER 13:38
DX: R10.13 Epigastric pain (principal); R10.817 Generalized abdominal tenderness; R11.0 Nausea; R19.4 Change in bowel habit; F17.200 Nicotine dependence, unspecified, uncomplicated; J44.9 Chronic obstructive pulmonary disease, unspecified; Z98.890 Other specified postprocedural states; Z98.84 Bariatric surgery status; Z87.19 Personal history of other diseases of the digestive system; Z87.11 Personal history of peptic ulcer disease; Z88.6 Allergy status to analgesic agent; Z88.5 Allergy status to narcotic agent; Z91.013 Allergy to seafood
CPT/HCPCS: 96376; 99284; 96361; 96374; 96375; 36415; 83690; 85025; 80053; 81001; 74177; J1200; J2930; J1170; J2405; J7030; S0028

== ENCOUNTER → 2020-04-07 | Outpatient (CLI) | payer MEDICAID ==
[2020-04-07 11:23] VITALS: BP 140/79
--- NOTE | 2020-04-07 11:23 | ER RDC ASSESSMENT REPORT ---
Intake - In the Last 14 days Have you traveled outside [place]?: No Have you been in close contact with someone CONFIRMED: Yes Worked in Healthcare?: No - Symptoms Subjective Fever([place] feverish): Yes Chills: No Muscule Aches: Yes Runny Nose: Yes Sore Throat: Yes Cough (New or worsening chronic cough): Yes Shortness of breath: Yes Nausea or Vomiting: No Headache: Yes Abdominal Pain: No Diarrhea(3 or more loose stools in last 24 hours): No - Do you have any of the following Chronic lung disease: Asthma or emphysema or COPD: Yes Chronic Lung Disease Comment: History of asthma Cystic Fibrosis: No Diabetes: No High Blood Pressure: No Cardiovascular Disease: No Chronic Kidney Disease: No Chronic Liver Disease: No Chronic blood disorder like Sickle Cell Disease: No Weak immune system due to disease or medication: No Neurologic condition that limits movement: No Developmental delay - Moderate to Severe: No Recent (within past 2 weeks) or current : No Morbid Obesity (>100 pounds over ideal weight): No Obesity Comment: Height 6 feet 3 inches weight 300 pounds Other Comment: History of lymphedema - Objective Temperature: 98.6 F Pulse Rate: 81 Respiratory Rate: 18 Blood Pressure: 140/79 O2 Sat by Pulse Oximetry: 97 Objective: Given above, testing performed: If Testing Performed: Test Specimen Type Sent to General - General Mode of Arrival: Ambulatory Information source: Patient Notes: Patient here at [facility] for Covid testing patient's mother has tested positive for Covid patient was exposed to her all week patient started to develop symptoms 2 days ago which included feeling feverish muscle aches runny nose sore throat cough shortness of breath and headache. Patient does smoke about a pack a day. Patient PCP is at [facility] and plans to follow-up with them later today. - Related Data Allergies/Adverse Reactions: iodine [Iodine] Allergy (Severe, Verified 07/07/19 13:21) oxycodone HCl [From Percocet] Allergy (Severe, Verified 07/07/19 13:21) fish derived [Fish derived] Allergy (Verified 07/07/19 13:21) Shellfish * [Shellfish] Allergy (Verified 07/07/19 13:21) ibuprofen [Ibuprofen] Adverse Reaction (Severe, Verified 07/07/19 13:21) bleeding Past Medical History - General Information source: Patient - Social History Smoking Status: Current Every Day Smoker - smokes a pack a day Smoking Education Provided: Yes - stop smoking Family History: Arthritis, CAD, Hypertension, Malignancy, Other - Seizures - Past Medical History Cardiac Medical History: Reports: Hx DVT - Possible history; has undergone vena caval filter implant., Hx Hypercholesterolemia, Hx Hypertension - Resolved after bariatric surgery Denies: Hx Atrial Fibrillation, Hx Congestive Heart Failure, Hx Pulmonary Embolism Pulmonary Medical History: Reports: Hx Asthma, Hx COPD, Hx Pneumonia, Hx Sleep Apnea - Resolved after bariatric surgery Neurological Medical History: Denies: Hx Seizures Endocrine Medical History: Reports: Hx Diabetes Mellitus Type 2 - Resolved after bariatric surgery. Denies: Hx Diabetes Mellitus Type 1, Hx Hyperthyroidism, Hx Hypothyroidism Renal/ Medical History: Denies: Hx Peritoneal Dialysis GI Medical History: Reports: Hx Gastroesophageal Reflux Disease, Hx Irritable Bowel, Hx Ulcer. Denies: Hx Cirrhosis, Hx Hepatitis Musculoskeletal Medical History: Denies Hx Arthritis, Reports Hx Musculoskeletal Trauma Skin Medical History: Reports Hx Cellulitis Psychiatric Medical History: Reports: Hx Anxiety, Hx Attention Deficit Hyperactivity Disorder, Hx Depression Traumatic Medical History: Reports: Hx Fractures - 5th finger Infectious Medical History: Denies: Hx C-Diff, Hx Hepatitis, Hx MRSA Past Surgical History: Reports: Hx Abdominal Surgery - gastric bypass, Hx Bowel Surgery - hernia repair, Hx Gastric Bypass Surgery, Hx Herniorrhaphy, Hx Inguinal Hernia, Other - Vena caval filter implant. History of surgery for perforated ulcer. Physical Exam - General General appearance: Appears well, Alert In distress: None Notes: PHYSICAL EXAMINATION: GENERAL: Well-appearing and in no acute distress. HEAD: Atraumatic, normocephalic. EYES: sclera anicteric, conjunctiva are normal. ENT: nares patent. Moist mucous membranes. NECK: Normal range of motion, supple without lymphadenopathy LUNGS: CTAB and equal. No wheezes rales or rhonchi. Respirations even and unlabored lung sounds clear. HEART: Regular rate and rhythm without murmurs ABDOMEN: Soft, nontender, normal bowel sounds, no guarding. EXTREMITIES: Normal range of motion, no pitting edema. No cyanosis. NEUROLOGICAL: Cranial nerves grossly intact. Normal speech. Normal gait. PSYCH: Normal mood, normal affect. SKIN: Warm, Dry, normal turgor, no rashes or lesions noted Diagnostic Results Laboratory Results: Patient informed of negative rapid strep and negative rapid flu results. Pending strep culture. Pending Covid testing results. Patient provided instructions regarding Covid to include: As a person under investigation for Covid 19, the [place] department of Health and Human Services, division of public health advises you to adhere to the following guidance until your test results are reported to you. If your test result is positive, you will receive additional information from your provider and your local health department at that time. Remain at home until you are cleared by the health provider or public health authorities. Keep a log of visitors to your home, notify any visitors to your home of your isolation status. If you plan to move to a new address or leave the county, notify the local health department in your County. Call your doctor or seek care if you have an urgent medical need. Before seeking medical care, call ahead to get instructions from the provider before arriving at the medical office clinic or hospital. Notify them that you are being tested for the virus that causes Covid 19 so that arrangements can be made, as necessary, to prevent transmission to others in the healthcare setting. Next, notify the local health department in your county. If a medical emergency arises and you need to call 911, inform the first responders that you are being tested for the virus that causes Covid 19. Next, notify the local health department in your [facility]. Patient Education/Counseling Counseling/Education: Patient presents with upper respiratory symptoms worrisome for possible Covid 19. Patient does not have emergency worring symptoms such as difficulty breathing, shortness of breath, chest pain, pressure, confusion or cyanosis. Patient appears suitable for discharge. Patient instructed to follow-up with PCP at [facility] today. To ED for persistent or worsening symptoms. Patient's vital signs are stable and patient is nontoxic in appearance. Good return precautions have been discussed with patient, patient verbalized understanding and is agreeable with discharge plan of care at this time. RDC Discharge - Discharge Condition: Stable Disposition: Home; Selfcare
[2020-04-07 12:52] LABS: A TYPE INFLUENZA AG NEGATIVE (NEGATIVE); B INFLUENZA AG NEGATIVE (NEGATIVE)
== END ==
LOC: RDC 10:30
PROVIDERS: ATTEND Nurse Practitioner Family
DX: U07.1 COVID-19 (principal); R50.9 Fever, unspecified; R05 Cough; R06.02 Shortness of breath; J02.9 Acute pharyngitis, unspecified; R09.89 Other specified symptoms and signs involving the circulatory and respiratory systems; M79.10 Myalgia, unspecified site; R51.9 Headache, unspecified; F17.200 Nicotine dependence, unspecified, uncomplicated; Z71.6 Tobacco abuse counseling; K21.9 Gastro-esophageal reflux disease without esophagitis; Z87.09 Personal history of other diseases of the respiratory system; Z88.6 Allergy status to analgesic agent; Z91.013 Allergy to seafood; Z88.8 Allergy status to other drugs, medicaments and biological substances; Z91.048 Other nonmedicinal substance allergy status
CPT/HCPCS: 87070; 87880; 87635; 87804; C9803; 99201; 99211